=== PATIENT | male | born 1965 | race Caucasian/White ===

== ENCOUNTER 2020-03-04 11:55 | Inpatient (IN) | payer OTHER ==
[2020-03-04] MEDS ORDERED: ASPIRIN 81 MG PO STA (12:14)
--- NOTE | 2020-03-04 12:16 | ED ---
General Adult HPI - General Chief complaint: Chest Pain Stated complaint: chest & arm pain Time Seen by Provider: 03/04/20 12:08 Source: patient Mode of arrival: wheelchair Limitations: no limitations - History of Present Illness Initial comments: Dictation was produced using [employer] dictation software. please excuse any grammatical, word or spelling errors. This patient was cared for during a federal and state declared state of emergency secondary to Covid 19 Chief Complaint: 54-year-old male past medical history dyslipidemia hypertension presents with chest pain History of Present Illness: Patient is a 54-year-old male who has past medical history of hypertension, dyslipidemia tobacco abuse presents today with chest pain. Patient states he's been expressing chest pain since this morning. He was at approximately 9 PM. He went to bed last night in his usual state of health. Morning he woke up with dull achy pain to his left anterior chest. He states it radiates to his back and down his left upper extremity. Patient denies any exacerbating or mitigating factors. He denies that the pain is pressure-like sensation. No associated diaphoresis or nausea. He reports that he does use tobacco on a regular basis. He reports he also has strong family history of cardiac disease. The ROS documented in this emergency department record has been reviewed and confirmed by me. Those systems with pertinent positive or negative responses have been documented in the HPI. All other systems are other negative and/or noncontributory. PHYSICAL EXAM: General Impression: Alert and oriented x3, not in acute distress HEENT: Normocephalic atraumatic, extra-ocular movements intact, pupils equal and reactive to light bilaterally, mucous membranes moist. Cardiovascular: Heart regular rate and rhythm Chest: Able to complete full sentences, no retractions, no tachypnea Abdomen: abdomen soft, non-tender, non-distended, no organomegaly Musculoskeletal: Pulses present and equal in all extremities, no peripheral edema Motor: no focal deficits noted Neurological: CN II-XII grossly intact, no focal motor or sensory deficits noted Skin: Intact with no visualized rashes Psych: Normal affect and mood ED course: 54-year-old male presents today with atypical chest pain with typical features. He does have multiple risk factors for acute coronary syndrome. He is well-appearing at bedside. As upon arrival are within acceptable limits. Essentially signs of dyspnea. He is not hypoxic. Laboratory evaluation obtained. Mild leukocytosis of 0.4. Rest of CBC is unremarkable. Coag panel is negative. Metabolic panel was obtained. Creatinine is 2.19 with a P1 at 26. Troponin is 0.039. Rest of labs unremarkable. Chest x-ray shows cardiomegaly without acute processes. A chin reevaluated at bedside. He is given aspirin. Patient states he continues to have some mild posterior left shoulder pain. Patient given nitro glycerin started on heparin. There are no old labs for cath reports to review. At this point is concern that patient's clinical presentation concerning for acute coronary syndrome. EKG interpretation: Ventricular rate 80, normal sinus rhythm, ID interval 182, QRS 92, QTc 445. No ID prolongation, no QTC prolongation, no ST or T-wave changes noted. No old EKG for comparison. There is a Q wave and T inversion in lead 3. Overall this EKG is nonspecific. Repeat EKG at 1421 was obtained showing no dynamic changes. Ventricular rate 76, normal sinus rhythm,. 180, QRS 90, QTC 472. At 2:33 PM case discussed with Dr. Simmons, on-call cardiology who is aware patient. He has no recommendations at this time except for patient be admitted for monitoring. he'll be admitted to [facility] hospitalist group. - Related Data Home Medications Medication Instructions Recorded Confirmed Atorvastatin [Lipitor] 10 mg PO HS 03/04/20 03/04/20 Citalopram Hydrobromide [CeleXA] 40 mg PO DAILY 03/04/20 03/04/20 Lisinopril-Hctz 20-12.5 mg 1 tab PO DAILY 03/04/20 03/04/20 [Zestoretic 20-12.5] buPROPion [Wellbutrin] 75 mg PO DAILY 03/04/20 03/04/20 Allergies Allergy/AdvReac Type Severity Reaction Status Date / Time No Known Allergies Allergy Verified 03/04/20 14:14 Review of Systems ROS Statement: Those systems with pertinent positive or pertinent negative responses have been documented in the HPI. ROS Other: All systems not noted in ROS Statement are negative. Past Medical History Past Medical History: Hyperlipidemia, Hypertension History of Any Multi-Drug Resistant Organisms: None Reported Additional Past Surgical History / Comment(s): cyst removal neck. Smoking Status: Current every day smoker Past Alcohol Use History: Occasional Past Drug Use History: None Reported General Exam Limitations: no limitations Course Vital Signs 03/04/20 03/04/20 03/04/20 12:00 12:50 13:59 Temperature 97.9 F Pulse Rate 85 82 79 Respiratory 18 18 18 Rate Blood Pressure 156/96 166/104 174/117 O2 Sat by Pulse 98 97 98 Oximetry Medical Decision Making - Lab Data Result diagrams: 03/04/20 12:32 03/04/20 12:32 Lab Results 03/04/20 03/04/20 03/04/20 Range/Units 12:32 12:32 12:32 WBC 12.4 H (3.8-10.6) k/uL RBC 4.41 (4.30-5.90) m/uL Hgb 13.3 (13.0-17.5) gm/dL Hct 38.8 L (39.0-53.0) % MCV 88.1 (80.0-100.0) fL MCH 30.1 (25.0-35.0) pg MCHC 34.1 (31.0-37.0) g/dL RDW 13.5 (11.5-15.5) % Plt Count 226 (150-450) k/uL MPV 6.9 Neutrophils % 78 % Lymphocytes % 11 % Monocytes % 5 % Eosinophils % 4 % Basophils % 1 % Neutrophils # 9.7 H (1.3-7.7) k/uL Lymphocytes # 1.4 (1.0-4.8) k/uL Monocytes # 0.6 (0-1.0) k/uL Eosinophils # 0.5 (0-0.7) k/uL Basophils # 0.1 (0-0.2) k/uL PT 9.6 (9.0-12.0) sec INR 0.9 (<1.2) APTT 27.8 (22.0-30.0) sec Sodium 138 (137-145) mmol/L Potassium 4.1 (3.5-5.1) mmol/L Chloride 103 (98-107) mmol/L Carbon Dioxide 25 (22-30) mmol/L Anion Gap 10 mmol/L BUN 26 H (9-20) mg/dL Creatinine 2.19 H (0.66-1.25) mg/dL Est GFR (CKD-EPI)AfAm 38 (>60 ml/min/1.73 sqM) Est GFR (CKD-EPI)NonAf 33 (>60 ml/min/1.73 sqM) Glucose 143 H (74-99) mg/dL Calcium 9.7 (8.4-10.2) mg/dL Magnesium 2.0 (1.6-2.3) mg/dL Total Bilirubin 0.4 (0.2-1.3) mg/dL AST 29 (17-59) U/L ALT 33 (4-49) U/L Alkaline Phosphatase 100 (38-126) U/L Troponin I (0.000-0.034) ng/mL Total Protein 7.7 (6.3-8.2) g/dL Albumin 4.4 (3.5-5.0) g/dL 03/04/20 Range/Units 12:32 WBC (3.8-10.6) k/uL RBC (4.30-5.90) m/uL Hgb (13.0-17.5) gm/dL Hct (39.0-53.0) % MCV (80.0-100.0) fL MCH (25.0-35.0) pg MCHC (31.0-37.0) g/dL RDW (11.5-15.5) % Plt Count (150-450) k/uL MPV Neutrophils % % Lymphocytes % % Monocytes % % Eosinophils % % Basophils % % Neutrophils # (1.3-7.7) k/uL Lymphocytes # (1.0-4.8) k/uL Monocytes # (0-1.0) k/uL Eosinophils # (0-0.7) k/uL Basophils # (0-0.2) k/uL PT (9.0-12.0) sec INR (<1.2) APTT (22.0-30.0) sec Sodium (137-145) mmol/L Potassium (3.5-5.1) mmol/L Chloride (98-107) mmol/L Carbon Dioxide (22-30) mmol/L Anion Gap mmol/L BUN (9-20) mg/dL Creatinine (0.66-1.25) mg/dL Est GFR (CKD-EPI)AfAm (>60 ml/min/1.73 sqM) Est GFR (CKD-EPI)NonAf (>60 ml/min/1.73 sqM) Glucose (74-99) mg/dL Calcium (8.4-10.2) mg/dL Magnesium (1.6-2.3) mg/dL Total Bilirubin (0.2-1.3) mg/dL AST (17-59) U/L ALT (4-49) U/L Alkaline Phosphatase (38-126) U/L Troponin I 0.039 H* (0.000-0.034) ng/mL Total Protein (6.3-8.2) g/dL Albumin (3.5-5.0) g/dL Disposition Clinical Impression: Chest pain Disposition: ADMITTED IP TO THIS HOSP Condition: Fair Referrals: [facility],Clinic [Primary Care Provider] - 1-2 days Decision Time: 14:34
--- NOTE | 2020-03-04 12:41 | XR ---
EXAMINATION TYPE: XR chest 2V DATE OF EXAM: 03/04/2020 COMPARISON: NONE HISTORY: Chest pain and nausea. TECHNIQUE: Frontal and lateral views of the chest are obtained. FINDINGS: Overlying EKG leads are present. Mild reticular and reticulonodular opacities bilaterally. There is no suspicious peripheral focal air space opacity, pleural effusion, or pneumothorax seen. The cardiac silhouette size is mildly enlarged. The osseous structures are intact. IMPRESSION: Mild cardiomegaly without acute pulmonary process.
[2020-03-04 13:06] LABS: Basophils # (A) 0.1 k/uL (0-0.2); Basophils % (A) 1 %; Eosinophils # (A) 0.5 k/uL (0-0.7); Eosinophils % (A) 4 %; HCT 38.8 % (39.0-53.0); HGB 13.3 gm/dL (13.0-17.5); Lymphocytes # (A) 1.4 k/uL (1.0-4.8); Lymphocytes % (A) 11 %; MCH 30.1 pg (25.0-35.0); MCHC 34.1 g/dL (31.0-37.0); MCV 88.1 fL (80.0-100.0); Mean Platelet Volume 6.9; Monocytes # (A) 0.6 k/uL (0-1.0); Monocytes % (A) 5 %; Neutrophils # (A) 9.7 k/uL (1.3-7.7); Neutrophils % (A) 78 %; Platelet Count 226 k/uL (150-450); RBC 4.41 m/uL (4.30-5.90); RDW 13.5 % (11.5-15.5); WBC 12.4 k/uL (3.8-10.6)
[2020-03-04 13:18] LABS: INR 0.9 (<1.2)
[2020-03-04 13:19] LABS: Partial Thromboplastin Time 27.8 sec (22.0-30.0); Prothrombin Time 9.6 sec (9.0-12.0)
[2020-03-04 13:20] LABS: Potassium 4.1 mmol/L (3.5-5.1)
[2020-03-04 13:21] LABS: Albumin 4.4 g/dL (3.5-5.0); Calcium 9.7 mg/dL (8.4-10.2); Total Bilirubin 0.4 mg/dL (0.2-1.3); Total Protein 7.7 g/dL (6.3-8.2)
[2020-03-04] MEDS ORDERED: HEPARIN SODIUM,PORCINE 5,000 UNIT/ML 1 ML VIAL IV ONE (14:17)
[2020-03-04] MEDS ORDERED: NITROGLYCERIN SL TABS 0.4 MG TAB SUBLINGUAL STA (14:20)
[2020-03-04] MEDS ORDERED: NITROGLYCERIN SL TABS 0.4 MG TAB SUBLINGUAL PRN (14:34)
[2020-03-04] MEDS: HEPARIN SOD,PORK IN 0.45% NACL 25,000 UNIT in 0.45% NACL 1 250ML.BAG IV SCH (14:40)
[2020-03-04] MEDS ORDERED: ALPRAZolam 0.25 MG TAB PO PRN (15:52)
[2020-03-04] MEDS ORDERED: TEMAZEPAM 15 MG CAP PO PRN (15:52)
[2020-03-04] MEDS ORDERED: ACETAMINOPHEN TAB 500 MG TAB PO PRN (18:50)
[2020-03-04] MEDS: SODIUM CHLORIDE 0.9% 1,000 ML IV SCH (20:05)
--- NOTE | 2020-03-04 20:41 | HP ---
HISTORY AND PHYSICAL DATE OF SERVICE: 03/04/2020 CHIEF COMPLAINT: Chest pain. HISTORY OF PRESENT ILLNESS: This 54-year-old gentleman with a past medical history of multiple medical problems, including hypertension, hyperlipidemia, history of nicotine dependence, being followed by Dr. Juarez in [facility] in the outpatient setting, was complaining of chest pain. The pain was felt in the anterior part of the chest as well as the left side of the chest radiating to the shoulder, back of the shoulder and down the left arm since this morning. The pain was dull aching in character and was radiating to the back, as mentioned earlier. There was no associated diaphoresis or nausea. There was no associated syncope or palpitations. The patient came to [facility] and was admitted for further evaluation and treatment. The patient also has apparently a strong family history of coronary artery disease. There is no history of fever, rigors or chills at this time. On admission, creatinine was found to be 2.1 and troponin was found to be 0.039 and 1.430, suggestive of acute vto-ZG-tkuiopz-elevation myocardial infarction. An EKG showed nonspecific ST-T changes in the lateral leads. There is no history of any fever, rigor or chills. No history of any contact with COVID-19. PAST MEDICAL HISTORY: Hypertension, hyperlipidemia, cyst removal from the back. History of nicotine dependence. MEDICATIONS: Medications prior to admission include Wellbutrin 75 mg p.o. daily, Zestril 1 p.o. daily, Celexa 40 mg daily, Lipitor 10 mg at bedtime. ALLERGIES: NONE. FAMILY HISTORY: History of coronary artery disease in the family. SOCIAL HISTORY: Occasional alcohol intake. History of smoking. REVIEW OF SYSTEMS: ENT: No diminished hearing. No diminished vision. CARDIOVASCULAR SYSTEM: As mentioned earlier. RESPIRATORY SYSTEM: As mentioned earlier. GI: As mentioned earlier. : No dysuria or retention. NERVOUS SYSTEM: No numbness, weakness. ALLERGY/IMMUNOLOGY: No asthma, hayfever. MUSCULOSKELETAL: As mentioned earlier. HEMATOLOGY/ONCOLOGY: No history of anemia. ENDOCRINE: No history of diabetes, hypothyroidism. CONSTITUTIONAL: As mentioned earlier. DERMATOLOGY: Negative. RHEUMATOLOGY: Negative. PSYCHIATRY: As mentioned earlier. PHYSICAL EXAMINATION: Patient alert and oriented x3. Pulse 65, blood pressure 148/93, respiration 18, temperature normal, pulse ox 94% on room air. HEENT: Conjunctivae normal. NECK: No jugular venous distention. CARDIOVASCULAR SYSTEM: S1, S2 muffled. RESPIRATORY SYSTEM: Breath sounds diminished at the bases. No rhonchi. No crackles. ABDOMEN: Soft, obese, non-tender. No mass palpable. LEGS: No edema. No swelling. NERVOUS SYSTEM: Higher functions as mentioned earlier. Moves all 4 limbs. No focal motor or sensory deficit. LYMPHATICS: No lymph node palpable in neck, axillae or groin. SKIN: No ulcer, rash, bleeding. JOINTS: No active deforming arthropathy. LABS: WBC 12.4 and creatinine is 2.19. Troponin is noted. ASSESSMENT: 1. Chest pain; possible acute bpt-CJ-wbeejgk-elevation myocardial infarction. 2. Troponin 0.039 and 1.430. 3. Renal failure; possibly acute renal failure. 4. Increased white count. 5. Hypertension. 6. Hyperlipidemia. 7. Family history of coronary artery disease. 8. History of nicotine dependence. 9. Obesity with body mass index of 32.3. RECOMMENDATIONS AND DISCUSSION: In this 54-year-old gentleman who presented with multiple complex medical issues, we will monitor the patient closely, continue the current medications, continue symptomatic treatment. Acute coronary syndrome Protonix. IV heparin. Cardiology consultation. Possible cardiac cath. I would also get a nephrology evaluation regarding the renal failure. Cautious IV fluids. Prognosis guarded because of multiple complex medical issues. Further recommendations to follow. A copy of this dictation is being forwarded to Dr. Juarez, who is the primary physician. BELL / NATHANIEL: [id number] / MTDD
[2020-03-04] MEDS ORDERED: ATORVASTATIN 10 MG TAB PO SCH (21:00)
[2020-03-04] MEDS: HYDROcodone/APAP 5-325MG 1 EACH TAB PO PRN (22:10)
[2020-03-05] MEDS: METOPROLOL TARTRATE 25 MG TAB PO SCH ×3 (00:34→20:33)
[2020-03-05 02:23] LABS: Appearance,Urine Clear (Clear); Bacteria,Urine Rare /hpf; Bilirubin,Urine Negative (Negative); Blood,Urine Large (Negative); Color,Urine Light Yellow; Glucose,Urine (UA) Negative (Negative); Ketones,Urine Negative (Negative); Leukocyte Esterase,Urine Trace (Negative); Mucus,Urine Occasional /hpf; Nitrite,Urine Negative (Negative); PH, Urine 5.5 (5.0-8.0); Protein,Urine Trace (Negative); RBC,Urine 92 /hpf (0-5); Specific Gravity,Urine 1.016 (1.001-1.035); Squamous Epithelial Cell,Urine <1 /hpf (0-4); Urobilinogen,Urine <2.0 mg/dL (<2.0); WBC,Urine 8 /hpf (0-5)
[2020-03-05 02:52] LABS: Basophils # (A) 0.1 k/uL (0-0.2); Basophils % (A) 1 %; Eosinophils # (A) 0.5 k/uL (0-0.7); Eosinophils % (A) 4 %; HCT 37.2 % (39.0-53.0); HGB 12.8 gm/dL (13.0-17.5); Lymphocytes # (A) 2.3 k/uL (1.0-4.8); Lymphocytes % (A) 17 %; MCH 30.5 pg (25.0-35.0); MCHC 34.5 g/dL (31.0-37.0); MCV 88.3 fL (80.0-100.0); Mean Platelet Volume 6.6; Monocytes # (A) 0.7 k/uL (0-1.0); Monocytes % (A) 5 %; Neutrophils # (A) 9.5 k/uL (1.3-7.7); Neutrophils % (A) 72 %; Platelet Count 239 k/uL (150-450); RBC 4.21 m/uL (4.30-5.90); RDW 13.3 % (11.5-15.5); WBC 13.2 k/uL (3.8-10.6)
[2020-03-05 03:09] LABS: Calcium 9.3 mg/dL (8.4-10.2); Potassium 4.3 mmol/L (3.5-5.1)
[2020-03-05] MEDS: PANTOPRAZOLE 40 MG TABLET PO SCH (06:44)
[2020-03-05] MEDS: buPROPion 75 MG TAB PO SCH (08:07)
[2020-03-05] MEDS: CITALOPRAM HYDROBROMIDE 20 MG TAB PO SCH (08:07)
[2020-03-05] MEDS: SODIUM CHLORIDE 0.9% 1,000 ML IV SCH ×2 (08:07→20:33)
[2020-03-05] MEDS: ASPIRIN 325 MG TAB PO SCH (08:07)
[2020-03-05] MEDS: HYDROcodone/APAP 5-325MG 1 EACH TAB PO PRN ×2 (08:13→16:35)
--- NOTE | 2020-03-05 10:13 | P.CRDCN ---
History of Present Illness Consult date: 03/05/20 Requesting physician: Karla Collazo Reason for Consult (text): NSTEMI Chief complaint: chest pressure History of present illness: This is a pleasant 54-year-old gentleman with no past medical history of coronary artery disease. He has a history of hypertension, hyperlipidemia, he is a current every day smoker of about one pack per day, family history of CAD in his father and mother. His father was about his age when he began having cardiac issues. He follows regularly with the [facility]. He denies history of kidney disease. Presented to the emergency department after developing some chest p ressure. Apparently evening March 03 he developed some nausea and vomiting after dinner after which time he went to bed. When he woke in the morning he had some chest pressure. The pressure persisted so he decided to come to the emergency department. EKG on admission showed sinus rhythm with mild ST depression noted in the inferolateral leads. Chest x-ray on admission showed mild cardiomegaly without acute pulmonary process. Laboratory values on admission showed a white blood cell count 12,400, BUN 26, creatinine 2.19, and troponins have been positive at 0.039, 1.43 and 4.07. Repeat labs this morning show white blood cell count 13,200, BUN 31 and creatinine 2.36. Triglycerides are elevated and glucose has been elevated. He has never been diagnosed with diabetes. He has been initiated on a heparin drip and started on Lopressor 0.5 mg by mouth twice a day and his Zestoretic has been discontinued. Overall he is feeling better. He did have one brief episode of chest pressure through the night relieved with one sublingual nitro. Past Medical History Past Medical History: Hyperlipidemia, Hypertension History of Any Multi-Drug Resistant Organisms: None Reported Additional Past Surgical History / Comment(s): cyst removal neck. Past Psychological History: No Psychological Hx Reported Smoking Status: Current every day smoker Past Alcohol Use History: Occasional Past Drug Use History: None Reported Medications and Allergies Home Medications Medication Instructions Recorded Confirmed Type Atorvastatin [Lipitor] 10 mg PO HS 03/04/20 03/04/20 History Citalopram Hydrobromide [CeleXA] 40 mg PO DAILY 03/04/20 03/04/20 History Lisinopril-Hctz 20-12.5 mg 1 tab PO DAILY 03/04/20 03/04/20 History [Zestoretic 20-12.5] buPROPion [Wellbutrin] 75 mg PO DAILY 03/04/20 03/04/20 History Allergies Allergy/AdvReac Type Severity Reaction Status Date / Time No Known Allergies Allergy Verified 03/04/20 14:14 Physical Exam Vitals: Vital Signs Temp Pulse Pulse Resp BP BP Pulse Ox 03/05/20 07:53 98.5 F 78 20 132/83 97 03/05/20 04:00 98.6 F 69 17 120/76 03/05/20 00:00 98.9 F 86 18 156/84 86 L 03/04/20 20:00 97.6 F 74 17 156/79 95 03/04/20 16:50 97.6 F 74 17 156/79 95 03/04/20 16:49 79 18 148/93 96 03/04/20 15:58 65 18 148/93 95 03/04/20 14:51 65 18 127/83 98 03/04/20 14:30 60 18 105/72 98 03/04/20 13:59 79 18 174/117 98 03/04/20 12:50 82 18 166/104 97 03/04/20 12:00 97.9 F 85 18 156/96 98 Intake and Output 03/04/20 03/05/20 03/05/20 22:59 06:59 14:59 Intake Total 129.394 600 Output Total 300 Balance -170.606 600 Intake: Intake, IV Titration 129.394 600 Amount Heparin Sod,Pork in 0.45% 129.394 NaCl 25,000 unit In 0.45 % NaCl 1 250ml.bag @ 11 UNITS/KG/HR 9.979 mls/hr IV .Q24H VIJAYA Rx#: [id number] Sodium Chloride 0.9% 1, 600 000 ml @ 75 mls/hr IV . [id number] VIJAYA Rx#:[id number] Output: Urine 300 Other: # Voids 2 3 Weight 90.718 kg 91.5 kg PHYSICAL EXAMINATION: This is a 54-year-old male in no apparent distress at the time of my examination. VITAL SIGNS: Blood pressure 132/83, heart rate 78, respirations 20, temp 98.5F. Patient is 97 % on room air. HEENT: Head is atraumatic, normocephalic. Pupils are equal, round. Sclerae anicteric. Conjunctivae are clear. Mucous membranes of the mouth are moist. Neck is supple. There is no elevated jugular venous pressure. No carotid bruit is heard. CHEST EXAMINATION: Clear to auscultation bilaterally. No wheezes rales or rhonchi. Respirations even and nonlabored. HEART EXAMINATION: Heart regular, positive S1 and S2. No S3. No S4. No clicks, rubs or murmurs. ABDOMEN: Soft, nontender. Bowel sounds are heard. No organomegaly noted. EXTREMITIES: 2+ peripheral pulses with no evidence of peripheral edema and no calf tenderness noted. NEUROLOGIC EXAMINATION: Patient is awake, alert and oriented x3. Results 03/05/20 02:40 03/05/20 02:40 Cardiac Enzymes 03/04/20 03/04/20 03/04/20 Range/Units 12:32 12: 15:55 AST 29 (17-59) U/L Troponin I 0.039 H* 1.430 H* (0.000-0.034) ng/mL 03/04/20 Range/Units 18:24 AST (17-59) U/L Troponin I 4.070 H* (0.000-0.034) ng/mL Coagulation 03/04/20 03/05/20 03/05/20 Range/Units 12:32 02:40 08:37 PT 9.6 (9.0-12.0) sec APTT 27.8 28.6 31.9 H (22.0-30.0) sec Lipids 03/05/20 Range/Units 02:40 Triglycerides 357 H (<150) mg/dL Cholesterol 184 (<200) mg/dL HDL Cholesterol 32 L (40-60) mg/dL CBC 03/04/20 03/05/20 Range/Units 12:32 02:40 WBC 12.4 H 13.2 H (3.8-10.6) k/uL RBC 4.41 4.21 L (4.30-5.90) m/uL Hgb 13.3 12.8 L (13.0-17.5) gm/dL Hct 38.8 L 37.2 L (39.0-53.0) % Plt Count 226 239 (150-450) k/uL Comprehensive Metabolic Panel 03/04/20 03/05/20 Range/Units 12:32 02:40 Sodium 138 137 (137-145) mmol/L Potassium 4.1 4.3 (3.5-5.1) mmol/L Chloride 103 104 (98-107) mmol/L Carbon Dioxide 25 27 (22-30) mmol/L BUN 26 H 31 H (9-20) mg/dL Creatinine 2.19 H 2.36 H (0.66-1.25) mg/dL Glucose 143 H 116 H (74-99) mg/dL Calcium 9.7 9.3 (8.4-10.2) mg/dL AST 29 (17-59) U/L ALT 33 (4-49) U/L Alkaline Phosphatase 100 (38-126) U/L Total Protein 7.7 (6.3-8.2) g/dL Albumin 4.4 (3.5-5.0) g/dL Current Medications Generic Name Dose Route Start Last Admin Trade Name Freq PRN Reason Stop Dose Admin Acetaminophen 500 mg 03/04/20 18:50 Acetaminophen Tab 500 Mg Tab PO Q6HR PRN Fever and/ or Pain Hydrocodone Bitart/Acetaminophen 1 each 03/04/20 15:52 03/05/20 08:13 Hydrocodone/Apap 5-325mg 1 Each Tab PO 1 each Q6HR PRN Administration Pain Alprazolam 0.25 mg 03/04/20 15:52 Alprazolam 0.25 Mg Tab PO TID PRN Anxiety Aspirin 325 mg 03/05/20 09:00 03/05/20 08:07 Aspirin 325 Mg Tab PO 325 mg DAILY VIJAYA Administration Atorvastatin Calcium 10 mg 03/04/20 21:00 03/04/20 20:05 Atorvastatin 10 Mg Tab PO 10 mg HS VIJAYA Administration Bupropion HCl 75 mg 03/05/20 09:00 03/05/20 08:07 Bupropion 75 Mg Tab PO 75 mg DAILY VIJAYA Administration Citalopram Hydrobromide 40 mg 03/05/20 09:00 03/05/20 08:07 Citalopram Hydrobromide 20 Mg Tab PO 40 mg DAILY VIJAYA Administration Heparin Sodium (Porcine) 0 unit 03/04/20 14:17 Heparin Sodium,Porcine 5,000 Unit/Ml 1 Ml Vial IV PER PROTOCOL PRN Low PTT Protocol Heparin Sodium/Sodium Chloride 250 mls @ 9.979 mls/hr 03/04/20 14:30 03/05/20 03:38 25,000 unit/ Sodium Chloride IV 14 units/kg/hr .Q24H VIJAYA 12.701 mls/hr Titration Protocol 11 UNITS/KG/HR Sodium Chloride 1,000 mls @ 75 mls/hr 03/04/20 19:00 03/05/20 08:07 Saline 0.9% IV 75 mls/hr .[id number] VIJAYA Administration Metoprolol Tartrate 25 mg 03/05/20 00:15 03/05/20 08:08 Metoprolol Tartrate 25 Mg Tab PO 25 mg BID VIJAYA Administration Nitroglycerin 0.4 mg 03/04/20 14:34 03/04/20 20:02 Nitroglycerin Sl Tabs 0.4 Mg Tab SUBLINGUAL 0.4 mg Q5M PRN Administration Chest Pain Pantoprazole Sodium 40 mg 03/05/20 07:30 03/05/20 06:44 Pantoprazole 40 Mg Tablet PO 40 mg [id number] VIJAYA Administration Temazepam 15 mg 03/04/20 15:52 Temazepam 15 Mg Cap PO HS PRN Insomnia Intake and Output 03/04/20 03/05/20 03/05/20 22:59 06:59 14:59 Intake Total 129.394 600 Output Total 300 Balance -170.606 600 Intake: Intake, IV Titration 129.394 600 Amount Heparin Sod,Pork in 0.45% 129.394 NaCl 25,000 unit In 0.45 % NaCl 1 250ml.bag @ 11 UNITS/KG/HR 9.979 mls/hr IV .Q24H VIJAYA Rx#: [id number] Sodium Chloride 0.9% 1, 600 000 ml @ 75 mls/hr IV . [id number] VIJAYA Rx#:[id number] Output: Urine 300 Other: # Voids 2 3 Weight 90.718 kg 91.5 kg 03/05/20 02:40 03/05/20 02:40 EKG Interpretations (text) Sinus rhythm with ST-T wave abnormalities Assessment and Plan Assessment: #1 non-ST elevation PR #2 acute renal failure #3 probable UTI #4 hypertension #5 hyperlipidemia #6 elevated blood glucose #7 nicotine dependence Plan: From cardiology's perspective we will obtain 2-D echo with Doppler to assess cardiac structure and function. We will add an oral nitrate and plavix. Increase atorvastatin. We will check a hemoglobin A1c. We will await nephrology's input. Patient will likely require cardiac catheterization but this will depend on renal status. We'll continue to follow the patient closely and provide further recommendations accordingly. The above dictated assessment and findings were discussed with signing darline sician. The impression and plan of care have been directed as dictated. Jennifer Bynum, Nurse Practitioner, acting as scribe for signing physician.
[2020-03-05] MEDS: ISOSORBIDE MONONITRATE ER 30 MG TAB.ER.24H PO SCH (10:24)
[2020-03-05] MEDS: HEPARIN SODIUM,PORCINE 5,000 UNIT/ML 1 ML VIAL IV PRN ×2 (10:25→17:48)
--- NOTE | 2020-03-05 11:32 | P.NPCON ---
History of Present Illness - Reason for Consult acute renal failure - History of Present Illness Reason for consultation: Acute kidney injury versus chronic kidney disease History of present illness: Patient is a 54-year-old male seen in renal consultation for acute kidney injury. Unknown as to what his baseline renal function is. Creatinine was 2.18 on admission and is 2.36 today. Patient does not follow with a operational intelligence officer outpatient. No history of diabetes. He does have long-standing history of high blood pressure and was maintained on Zestoretic outpatient. Patient presented to the hospital due to chest pain that started in the middle of his chest and radiated to the left side of his chest as well as his arm. He describes the pain like pressure. Denies any nausea or vomiting. No significant diarrhea. No shortness of breath. Oral intake has been fair. He is currently maintained on normal saline as well as heparin drip. Her pressure is stable. Zestoretic is held. He denies regular use of nonsteroidals. Patient states his mother has chronic kidney disease but is unsure of the etiology. Good urine output. No hematuria or dysuria. No fever or chills. No cough. Vital signs are stable. General: The patient appeared well nourished and normally developed. HEENT: Head exam is unremarkable. Neck is without jugular venous distension. LUNGS: Breath sounds decreased. HEART: Rate and Rhythm are regular. ABDOMEN: Soft, nontender. EXTREMITITES: No edema. Past Medical History Past Medical History: Hyperlipidemia, Hypertension History of Any Multi-Drug Resistant Organisms: None Reported Additional Past Surgical History / Comment(s): cyst removal neck. Past Psychological History: No Psychological Hx Reported Smoking Status: Current every day smoker Past Alcohol Use History: Occasional Past Drug Use History: None Reported Medications and Allergies Home Medications Medication Instructions Recorded Confirmed Type Atorvastatin [Lipitor] 10 mg PO HS 03/04/20 03/04/20 History Citalopram Hydrobromide [CeleXA] 40 mg PO DAILY 03/04/20 03/04/20 History Lisinopril-Hctz 20-12.5 mg 1 tab PO DAILY 03/04/20 03/04/20 History [Zestoretic 20-12.5] buPROPion [Wellbutrin] 75 mg PO DAILY 03/04/20 03/04/20 History Allergies Allergy/AdvReac Type Severity Reaction Status Date / Time No Known Allergies Allergy Verified 03/04/20 14:14 Physical Exam Vitals: Vital Signs Temp Pulse Pulse Resp BP BP Pulse Ox 03/05/20 07:53 98.5 F 78 20 132/83 97 03/05/20 04:00 98.6 F 69 17 120/76 03/05/20 00:00 98.9 F 86 18 156/84 86 L 03/04/20 20:00 97.6 F 74 17 156/79 95 03/04/20 16:50 97.6 F 74 17 156/79 95 03/04/20 16:49 79 18 148/93 96 03/04/20 15:58 65 18 148/93 95 03/04/20 14:51 65 18 127/83 98 03/04/20 14:30 60 18 105/72 98 03/04/20 13:59 79 18 174/117 98 03/04/20 12:50 82 18 166/104 97 03/04/20 12:00 97.9 F 85 18 156/96 98 Intake and Output 03/04/20 03/05/20 03/05/20 22:59 06:59 14:59 Intake Total 129.394 686.367 Output Total 300 Balance -170.606 686.367 Intake: Intake, IV Titration 129.394 686.367 Amount Heparin Sod,Pork in 0.45% 129.394 86.367 NaCl 25,000 unit In 0.45 % NaCl 1 250ml.bag @ 11 UNITS/KG/HR 9.979 mls/hr IV .Q24H VIJAYA Rx#: [id number] Sodium Chloride 0.9% 1, 600 000 ml @ 75 mls/hr IV . [id number] VIJAYA Rx#:[id number] Output: Urine 300 Other: # Voids 2 3 Weight 90.718 kg 91.5 kg Results - Lab Results Most recent lab results Calcium 9.3 mg/dL (8.4-10.2) 03/05/20 02:40 Magnesium 2.0 mg/dL (1.6-2.3) 03/04/20 12:32 03/05/20 02:40 03/05/20 02:40 Assessment and Plan Plan: Assessment: 1. Acute kidney injury versus chronic kidney disease. Creatinine 2.19 on admission yesterday and is 2.36 today. Unknown baseline renal function. 2. Non-ST elevated myocardial infarction maintained on heparin drip. Cardiology consulted. 3. Benign hypertension. Stable. 4. Proteinuria and hematuria. Also probable UTI on UA. Plan: Repeat urinalysis. Quantify proteinuria. Check renal ultrasound. Check urine culture. Maintain normal saline. Follow-up echocardiogram and hemoglobin A1c. Hold Zestoretic. Continue to monitor renal function and urine output. Thank you for the consultation. I will continue to follow patient with you renea quiros his hospital stay.
[2020-03-05] MEDS: CLOPIDOGREL 75 MG TAB PO SCH (11:47)
[2020-03-05] MEDS: HEPARIN SOD,PORK IN 0.45% NACL 25,000 UNIT in 0.45% NACL 1 250ML.BAG IV SCH ×2 (11:47→16:36)
--- NOTE | 2020-03-05 13:41 | US ---
EXAMINATION TYPE: US kidneys/renal and bladder DATE OF EXAM: 03/05/2020 COMPARISON: NONE CLINICAL HISTORY: 54 year-old male acute kidney injury TECHNIQUE: Multiple sonographic images of the kidneys and bladder are obtained. FINDINGS: EXAM MEASUREMENTS: Right Kidney: 10.2 x 4.5 x 5.1 cm Left Kidney: 13.0 x 5.9 x 5.4 cm, asymmetrically larger, possible duplex renal collecting system. No hydronephrosis on either side. Bladder: Bladder distention limits its evaluation.Bilateral Jets seen: no Prostate appears prominent impressing into the bladder base. Incidental echogenic liver compatible with fatty infiltration. IMPRESSION: 1. No hydronephrosis. The left kidney is asymmetrically larger, possible duplex left renal collecting system. 2. Underdistention of the bladder limits its evaluation. Prostate gland is prominent impressing into the bladder base. Correlate with patient's symptoms and PSA values. 3. Incidental hepatic steatosis.
[2020-03-05 14:59] LABS: Appearance,Urine Clear (Clear); Bilirubin,Urine Negative (Negative); Blood,Urine Small (Negative); Color,Urine Yellow; Glucose,Urine (UA) Negative (Negative); Hyaline Casts,Urine 1 /lpf (0-2); Ketones,Urine Negative (Negative); Leukocyte Esterase,Urine Negative (Negative); Mucus,Urine Rare /hpf; Nitrite,Urine Negative (Negative); PH, Urine 5.5 (5.0-8.0); Protein,Urine Trace (Negative); RBC,Urine 4 /hpf (0-5); Specific Gravity,Urine 1.019 (1.001-1.035); Urobilinogen,Urine <2.0 mg/dL (<2.0); WBC,Urine 2 /hpf (0-5)
[2020-03-05 15:14] LABS: Creatinine,Urine Random 157.7 mg/dL; Protein/Creatinine Ratio,Urine 0.082
--- NOTE | 2020-03-05 15:33 | ECHOF ---
Referral Reason:NSTEMI MEASUREMENTS -------- HEIGHT: 167.6 cm WEIGHT: 91.2 kg BP: 132/83 RVIDd: 3.5 cm (< 3.3) IVSd: 1.7 cm (0.6 - 1.1) LVIDd: 4.2 cm (3.9 - 5.3) LVPWd: 1.5 cm (0.6 - 1.1) IVSs: 2.4 cm LVIDs: 3.1 cm LVPWs: 2.2 cm LAESV Index (A-L): 27.21 ml/m Ao Diam: 4.3 cm (2.0 - 3.7) AV Cusp: 2.4 cm (1.5 - 2.6) MV E Grzegorz: 1.09 m/s MV DecT: 262 ms MV A Grzegorz: 0.95 m/s MV E/A Ratio: 1.15 AV maxP.24 mmHg AV meanP.40 mmHg AR PHT: 604 ms RAP: 5.00 mmHg RVSP: 36.03 mmHg FINDINGS -------- This was a technically difficult study with suboptimal apical views. The left ventricular size is normal. Left ventricular wall thickness is normal. Overall left vent ricular systolic function is mild-moderately impaired with, an EF between 40 - 45 %. Mid lateral LV wall motion is hypokinetic. Apical lateral LV wall motion is hypokinetic. Apical inferior LV w all motion is hypokinetic. Inferior Hypokinesis The right ventricle is mildly enlarged. Normal LA size by volume 22+/-6 ml/m2. The right atrium was not well visualized. 5.0mg of Lumason was utilized for enhancement of images Interatrial and interventricular septum intact. Trace to mild aortic regurgitation. There is no evidence of aortic stenosis. AOV is possible Bicu spid. Mild mitral regurgitation is present. Mild tricuspid regurgitation present. There is mild pulmonary hypertension. The right ventricular systolic pressure, as measured by Doppler, is 36.03mmHg. There is no pulmonic regurgitation present. The aortic root is mildy dilated. IVC Not well visulized. There is no pericardial effusion. CONCLUSIONS -------- 1. The left ventricular size is normal. 2. Left ventricular wall thickness is normal. 3. Overall left ventricular systolic function is mild-moderately impaired with, an EF between 40 - 45 %. 4. Mid lateral LV wall motion is hypokinetic. 5. Apical lateral LV wall motion is hypokinetic. 6. Apical inferior LV wall motion is hypokinetic. 7. Inferior Hypokinesis 8. The right ventricle is mildly enlarged. 9. Trace to mild aortic regurgitation. 10. AOV is possible Bicuspid. 11. Mild mitral regurgitation is present. 12. Mild tricuspid regurgitation present. 13. There is mild pulmonary hypertension. 14. The right ventricular systolic pressure, as measured by Doppler, is 36.03mmHg. PRINCIPAL PROGRAMMER: Keren Baum RDCS
[2020-03-05] MEDS: ATORVASTATIN 40 MG TAB PO SCH (20:33)
--- NOTE | 2020-03-05 21:39 | P.PN ---
Subjective Progress Note Date: 03/05/20 Principal diagnosis: Acute non-ST elevated SC Patient is a 54-year-old male with known history of hypertension, hyperlipidemia and currently everyday smoker came to ER with complaints of chest pain. Patient states that he has been having retrosternal chest pain since yesterday morning. Patient woke up with dull aching pain and radiating to his left upper extremity and to his back. Denied any shortness of breath. Pain lasted about 2 hours. Pressure-like sensation and no diaphoresis or lightheadedness. Patient was found to have troponin level 0.039, 1.430 and EKG showed nonspecific ST-T wave changes. Denied any history of recent illnesses. On 03/05/2020 Patient is currently lying in the bed comfortably. Denies any chest pain today. Currently being continued heparin drip. Cardiology has seen the patient and started Plavix and nitrate. Renal function showed BUN 31 and creatinine 2.36. Nephrology is following. Cardiology is planning for catheterization once the renal function improves. Current medications reviewed. Objective - Vital Signs Vital signs: Vital Signs Temp 98.3 F 03/05/20 16:00 Pulse 65 03/05/20 16:00 Resp 18 03/05/20 16:00 BP 110/67 03/05/20 16:00 Pulse Ox 96 03/05/20 16:00 Intake & Output 03/05/20 03/05/20 03/06/20 06:59 18:59 06:59 Intake Total 445.166 9131.233 Output Total 300 Balance -446.397 7217.233 Weight 91.5 kg Intake: IV 120 Heparin Sod,Pork in 0.45% 120 NaCl 25,000 unit In 0.45 % NaCl 1 250ml.bag @ 11 UNITS/KG/HR 9.979 mls/hr IV .Q24H VIJAYA Rx#: [id number] Intake, IV Titration 609.091 1469.233 Amount Heparin Sod,Pork in 0.45% 129.394 200.233 NaCl 25,000 unit In 0.45 % NaCl 1 250ml.bag @ 11 UNITS/KG/HR 9.979 mls/hr IV .Q24H VIJAYA Rx#: [id number] Sodium Chloride 0.9% 1, 1200 000 ml @ 75 mls/hr IV . [id number] VIJAYA Rx#:[id number] Oral 720 Output: Urine 300 Other: # Voids 2 450 - Exam PHYSICAL EXAMINATION: Patient is lying in the bed comfortably, no acute distress, awake alert and oriented.. HEENT: Normocephalic. Neck is supple. Pupils reactive. Nostrils clear. Oral cavity is moist. Ears reveal no drainage. Neck reveals no JVD, carotid bruits, or thyromegaly. CHEST EXAMINATION: Trachea is central. Symmetrical expansion. Lung stevens clear to auscultation and percussion. CARDIAC: Normal S1, S2 with no gallops. No murmurs ABDOMEN: Soft. Bowel sounds normal. No organomegaly. No abdominal bruits. Extremities: reveal no edema. No clubbing or cyanosis Neurologically awake, alert, oriented x3 with well-coordinated movements. No focal deficits noted Skin: No rash or skin lesions. Psychiatric: Coperative. Nonsuicidal Musculoskeletal: No joint swelling or deformity. Normal range of motion. - Labs CBC & Chem 7: 03/05/20 02:40 03/05/20 02:40 Labs: Abnormal Lab Results - Last 24 Hours (Table) 03/05/20 03/05/20 03/05/20 Range/Units 02:07 02:40 02:40 WBC 13.2 H (3.8-10.6) k/uL RBC 4.21 L (4.30-5.90) m/uL Hgb 12.8 L (13.0-17.5) gm/dL Hct 37.2 L (39.0-53.0) % Neutrophils # 9.5 H (1.3-7.7) k/uL APTT (22.0-30.0) sec BUN 31 H (9-20) mg/dL Creatinine 2.36 H (0.66-1.25) mg/dL Glucose 116 H (74-99) mg/dL Triglycerides 357 H (<150) mg/dL HDL Cholesterol 32 L (40-60) mg/dL Urine Protein Trace H (Negative) Urine Blood Large H (Negative) Ur Leukocyte Esterase Trace H (Negative) Urine RBC 92 H (0-5) /hpf Urine WBC 8 H (0-5) /hpf Urine Bacteria Rare H (None) /hpf Urine Mucus Occasional H (None) /hpf 12/05/20 12/05/20 12/05/20 Range/Units 08:37 14:35 17:15 WBC (3.8-10.6) k/uL RBC (4.30-5.90) m/uL Hgb (13.0-17.5) gm/dL Hct (39.0-53.0) % Neutrophils # (1.3-7.7) k/uL APTT 31.9 H 39.5 H (22.0-30.0) sec BUN (9-20) mg/dL Creatinine (0.66-1.25) mg/dL Glucose (74-99) mg/dL Triglycerides (<150) mg/dL HDL Cholesterol (40-60) mg/dL Urine Protein Trace H (Negative) Urine Blood Small H (Negative) Ur Leukocyte Esterase (Negative) Urine RBC (0-5) /hpf Urine WBC (0-5) /hpf Urine Bacteria (None) /hpf Urine Mucus Rare H (None) /hpf Assessment and Plan Assessment: Acute non-ST elevated SC with elevated troponin level. Chest pain Acute kidney injury with creatinine level 2.36 today. Trace proteinuria on urinalysis Hypertension Hyperlipidemia Ongoing nicotine addiction Family history of coronary artery disease DVT prophylaxis patient is already on heparin drip Plan: Patient will be continued on telemetry monitoring. Continue with heparin drip. Monitor renal function and nephrology is on board. Ultrasound renal was ordered. Continue gentle IV rehydration. Cardiology is following. Planning for cardiac catheterization once renal function improves. Further recommendations based on clinical course. Time with Patient: Greater than 30
[2020-03-06] MEDS: PANTOPRAZOLE 40 MG TABLET PO SCH (06:38)
[2020-03-06] MEDS: ASPIRIN 325 MG TAB PO SCH (08:12)
[2020-03-06] MEDS: buPROPion 75 MG TAB PO SCH (08:12)
[2020-03-06] MEDS: ISOSORBIDE MONONITRATE ER 30 MG TAB.ER.24H PO SCH (08:12)
[2020-03-06] MEDS: CITALOPRAM HYDROBROMIDE 20 MG TAB PO SCH (08:12)
[2020-03-06] MEDS: CLOPIDOGREL 75 MG TAB PO SCH (08:13)
[2020-03-06] MEDS: METOPROLOL TARTRATE 25 MG TAB PO SCH ×2 (08:13→20:13)
[2020-03-06 09:12] LABS: Basophils % (A) 0 %; Eosinophils # (A) 0.5 k/uL (0-0.7); Eosinophils % (A) 6 %; HCT 35.1 % (39.0-53.0); HGB 11.3 gm/dL (13.0-17.5); Lymphocytes # (A) 2.2 k/uL (1.0-4.8); Lymphocytes % (A) 30 %; MCH 29.2 pg (25.0-35.0); MCHC 32.2 g/dL (31.0-37.0); MCV 90.6 fL (80.0-100.0); Mean Platelet Volume 7.3; Monocytes # (A) 0.4 k/uL (0-1.0); Monocytes % (A) 5 %; Neutrophils # (A) 4.1 k/uL (1.3-7.7); Neutrophils % (A) 57 %; Platelet Count 219 k/uL (150-450); RBC 3.87 m/uL (4.30-5.90); RDW 13.8 % (11.5-15.5); WBC 7.2 k/uL (3.8-10.6)
[2020-03-06 09:59] LABS: Calcium 8.7 mg/dL (8.4-10.2); Magnesium 2.2 mg/dL (1.6-2.3); Potassium 4.1 mmol/L (3.5-5.1)
--- NOTE | 2020-03-06 10:33 | P.PN ---
Subjective Acute kidney injury versus chronic kidney disease. Renal function a little better today. He is maintained on IV fluids. No chest pain or shortness of breath. Good urine output. Blood pressure stable. Vital signs are stable. General: The patient appeared well nourished and normally developed. HEENT: Head exam is unremarkable. Neck is without jugular venous distension. LUNGS: Breath sounds decreased. HEART: Rate and Rhythm are regular. ABDOMEN: Soft, nontender. EXTREMITITES: No edema. Objective - Vital Signs Vital signs: Vital Signs Temp 98.3 F 03/06/20 08:00 Pulse 71 03/06/20 08:00 Resp 18 03/06/20 08:00 BP 106/63 03/06/20 08:00 Pulse Ox 93 L 03/06/20 08:00 Intake & Output 03/05/20 03/06/20 03/06/20 18:59 06:59 18:59 Intake Total 2240.233 300 453.237 Balance 2240.233 300 453.237 Weight 92.7 kg Intake: IV 120 Heparin Sod,Pork in 0.45% 120 NaCl 25,000 unit In 0.45 % NaCl 1 250ml.bag @ 11 UNITS/KG/HR 9.979 mls/hr IV .Q24H VIJAYA Rx#: [id number] Intake, IV Titration 1400.233 300 231.237 Amount Heparin Sod,Pork in 0.45% 200.233 231.237 NaCl 25,000 unit In 0.45 % NaCl 1 250ml.bag @ 11 UNITS/KG/HR 9.979 mls/hr IV .Q24H VIJAYA Rx#: [id number] Sodium Chloride 0.9% 1, 1200 300 000 ml @ 75 mls/hr IV . [id number] VIJAYA Rx#:[id number] Oral 720 222 Other: # Voids 450 - Labs CBC & Chem 7: 03/06/20 08:40 03/06/20 08:40 Labs: Abnormal Lab Results - Last 24 Hours (Table) 03/05/20 03/05/20 03/05/20 Range/Units 14:35 17:15 23:43 RBC (4.30-5.90) m/uL Hgb (13.0-17.5) gm/dL Hct (39.0-53.0) % APTT 39.5 H 54.9 H (22.0-30.0) sec BUN (9-20) mg/dL Creatinine (0.66-1.25) mg/dL Glucose (74-99) mg/dL Urine Protein Trace H (Negative) Urine Blood Small H (Negative) Urine Mucus Rare H (None) /hpf 03/06/20 03/06/20 03/06/20 Range/Units 08:40 08:40 08:40 RBC 3.87 L (4.30-5.90) m/uL Hgb 11.3 L (13.0-17.5) gm/dL Hct 35.1 L (39.0-53.0) % APTT 54.6 H (22.0-30.0) sec BUN 31 H (9-20) mg/dL Creatinine 2.09 H (0.66-1.25) mg/dL Glucose 149 H (74-99) mg/dL Urine Protein (Negative) Urine Blood (Negative) Urine Mucus (None) /hpf Microbiology - Last 24 Hours (Table) 03/05/20 14:35 Urine Culture - Preliminary Urine,Voided Assessment and Plan Plan: Assessment: 1. Acute kidney injury versus chronic kidney disease. Renal function relatively stable this admission - creatinine 2.09 today. Unknown baseline renal function. UA fairly benign. No hydronephrosis noted on kidney ultrasound . 2. Non-ST elevated myocardial infarction maintained on heparin drip. Cardiology following. 3. Benign hypertension. Stable. 4. Proteinuria and hematuria. Repeat UA fairly benign. UPC 0.08. Follow-up urine culture. 5. Acute systolic CHF with ejection fraction of 40-45%. Plan: Hep-Lock IV fluids. I discussed with the patient the risk of worsening renal failure, potentially requiring renal replacement therapy, post-IV contrast exposure. He understands. If requires cardiac catheterization, patient will be hydrated with normal saline for 8-10 hours pre-cardiac catheterization and post catheterization as well. Avoid nephrotoxins.
[2020-03-06 12:24] LABS: Hemoglobin A1C 5.8 % (4.0-6.0)
--- NOTE | 2020-03-06 12:36 | P.PN ---
Subjective Progress Note Date: 03/06/20 This is a pleasant 54-year-old gentleman with no past medical history of coronary artery disease. He has a history of hypertension, hyperlipidemia, he is a current every day smoker of about one pack per day, family history of CAD in his father and mother. His father was about his age when he began having cardiac issues. He follows regularly with the [facility]. He denies history of kidney disease. Presented to the emergency department after developing some chest pressure. Apparently evening March 03 he developed some nausea and vomiting after dinner after which time he went to bed. When he woke in the morning he had some chest pressure. The pressure persisted so he decided to come to the emergency department. EKG on admission showed sinus rhythm with mild ST depression noted in the inferolateral leads. Chest x-ray on admission showed mild cardiomegaly without acute pulmonary process. Laboratory values on admission showed a white blood cell count 12,400, BUN 26, creatinine 2.19, and troponins have been positive at 0.039, 1.43 and 4.07. Repeat labs this morning show white blood cell count 13,200, BUN 31 and creatinine 2.36. Triglycerides are elevated and glucose has been elevated. He has never been diagnosed with diabetes. He has been initiated on a heparin drip and started on Lopressor 0.5 mg by mouth twice a day and his Zestoretic has been discontinued. Overall he is feeling better. He did have one brief episode of chest pressure through the night relieved with one sublingual nitro. 03/06/2020 Upon examination patient is resting comfortably in bed. He's had no further complaints of chest pressure. He remains on a heparin drip. He is tolerating aspirin, atorvastatin, Plavix, isosorbide 30 mg by mouth daily, metoprolol titrate 25 mg by mouth twice a day. Echocardiogram with Doppler study done yesterday showed impaired LV systolic function with an ejection fraction of 40- 45% with evidence of segmental wall motion abnormalities. Labs today showed loree e improvement in his renal function with a BUN of 31 and creatinine 2.09. The patient has been seen and examined by nephrology who is recommending pre-and post procedure hydration. Objective - Vital Signs Vital signs: Vital Signs Temp 98.3 F 03/06/20 11:11 Pulse 63 03/06/20 11:11 Resp 18 03/06/20 11:11 BP 120/72 03/06/20 11:11 Pulse Ox 97 03/06/20 11:11 Intake & Output 03/05/20 03/06/20 03/06/20 18:59 06:59 18:59 Intake Total 2240.233 300 453.237 Balance 2240.233 300 453.237 Weight 92.7 kg Intake: IV 120 Heparin Sod,Pork in 0.45% 120 NaCl 25,000 unit In 0.45 % NaCl 1 250ml.bag @ 11 UNITS/KG/HR 9.979 mls/hr IV .Q24H VIJAYA Rx#: [id number] Intake, IV Titration 1400.233 300 231.237 Amount Heparin Sod,Pork in 0.45% 200.233 231.237 NaCl 25,000 unit In 0.45 % NaCl 1 250ml.bag @ 11 UNITS/KG/HR 9.979 mls/hr IV .Q24H VIJAYA Rx#: [id number] Sodium Chloride 0.9% 1, 1200 300 000 ml @ 75 mls/hr IV . [id number] VIJAYA Rx#:[id number] Oral 720 222 Other: # Voids 450 - Exam PHYSICAL EXAMINATION: HEENT: Head is atraumatic, normocephalic. Pupils equal, round. Neck is supple. There is no elevated jugular venous pressure. HEART EXAMINATION: Heart sounds regular, S1 and S2 normal. No murmur or gallop heard. CHEST EXAMINATION: Lungs are clear to auscultation and precussion. No chest wall tenderness is noted on palpation or with deep breathing. ABDOMEN: Soft, nontender. Bowel sounds are heard. No organomegaly noted. EXTREMITIES: 2+ peripheral pulses with no evidence of peripheral edema and no calf tenderness noted. NEUROLOGIC patient is awake, alert and oriented x3. . - Labs CBC & Chem 7: 03/06/20 08:40 03/06/20 08:40 Labs: Abnormal Lab Results - Last 24 Hours (Table) 03/05/20 03/05/20 03/05/20 Range/Units 14:35 17:15 23:43 RBC (4.30-5.90) m/uL Hgb (13.0-17.5) gm/dL Hct (39.0-53.0) % APTT 39.5 H 54.9 H (22.0-30.0) sec BUN (9-20) mg/dL Creatinine (0.66-1.25) mg/dL Glucose (74-99) mg/dL Urine Protein Trace H (Negative) Urine Blood Small H (Negative) Urine Mucus Rare H (None) /hpf 03/06/20 03/06/20 03/06/20 Range/Units 08:40 08:40 08:40 RBC 3.87 L (4.30-5.90) m/uL Hgb 11.3 L (13.0-17.5) gm/dL Hct 35.1 L (39.0-53.0) % APTT 54.6 H (22.0-30.0) sec BUN 31 H (9-20) mg/dL Creatinine 2.09 H (0.66-1.25) mg/dL Glucose 149 H (74-99) mg/dL Urine Protein (Negative) Urine Blood (Negative) Urine Mucus (None) /hpf Microbiology - Last 24 Hours (Table) 03/05/20 14:35 Urine Culture - Preliminary Urine,Voided Assessment and Plan Assessment: #1 non-ST elevation MO #2 acute renal failure, improving #3 probable UTI #4 hypertension #5 hyperlipidemia #6 elevated blood glucose #7 nicotine dependence Plan: From cardiology's perspective we will the patient nothing by mouth after midnight. We will hydrate the patient overnight and check electrolytes and renal function in the morning. Depending on renal function patient may undergo coronary angiography tomorrow. The above dictated assessment and findings were discussed with signing physician. The impression and plan of care have been directed as dictated. Jennifer Bynum, Nurse Practitioner, acting as scribe for signing physician.
[2020-03-06] MEDS: SODIUM CHLORIDE 0.9% 1,000 ML IV SCH (13:04)
[2020-03-06] MEDS: ATORVASTATIN 40 MG TAB PO SCH (20:13)
--- NOTE | 2020-03-07 00:02 | P.PN ---
Subjective Progress Note Date: 03/06/20 Principal diagnosis: Acute non-ST elevated [place] Patient is a 54-year-old male with known history of hypertension, hyperlipidemia and currently everyday smoker came to ER with complaints of chest pain. Patient states that he has been having retrosternal chest pain since yesterday morning. Patient woke up with dull aching pain and radiating to his left upper extremity and to his back. Denied any shortness of breath. Pain lasted about 2 hours. Pressure-like sensation and no diaphoresis or lightheadedness. Patient was found to have troponin level 0.039, 1.430 and EKG showed nonspecific ST-T wave changes. Denied any history of recent illnesses. On 03/05/2020 Patient is currently lying in the bed comfortably. Denies any chest pain today. Currently being continued heparin drip. Cardiology has seen the patient and started Plavix and nitrate. Renal function showed BUN 31 and creatinine 2.36. Nephrology is following. Cardiology is planning for catheterization once the renal function improves. 03/06/2020 Patient is currently lying in bed comfortably. Denied any complaints of chest pain or pressure. Current aspirin statins Plavix and Imdur. Metoprolol 20 mg twice daily. 2D echocardiogram showed impaired LV systolic function with ejecti on fraction 40 to 40% with evidence of segmental wall motion abnormalities. Otherwise creatinine level slightly improved to 2.09 today. Nephrology is following and recommends IV hydration pre and post procedure. Cardiology is planning for cardiac catheterization. Current medications reviewed. Current medications reviewed. Objective - Vital Signs Vital signs: Vital Signs Temp 98.6 F 03/06/20 15:13 Pulse 64 03/06/20 15:13 Resp 20 03/06/20 15:13 BP 116/67 03/06/20 15:13 Pulse Ox 95 03/06/20 15:13 Intake & Output 03/05/20 03/06/20 03/06/20 18:59 06:59 18:59 Intake Total 2240.233 300 693.237 Balance 2240.233 300 693.237 Weight 92.7 kg Intake: IV 120 Heparin Sod,Pork in 0.45% 120 NaCl 25,000 unit In 0.45 % NaCl 1 250ml.bag @ 11 UNITS/KG/HR 9.979 mls/hr IV .Q24H [facility] Rx#: [id number] Intake, IV Titration 1400.233 300 231.237 Amount Heparin Sod,Pork in 0.45% 200.233 231.237 NaCl 25,000 unit In 0.45 % NaCl 1 250ml.bag @ 11 UNITS/KG/HR 9.979 mls/hr IV .Q24H [facility] Rx#: [id number] Sodium Chloride 0.9% 1, 1200 300 000 ml @ 75 mls/hr IV . [id number] [facility] Rx#:[id number] Oral 720 462 Other: # Voids 450 - Exam PHYSICAL EXAMINATION: Patient is lying in the bed comfortably, no acute distress, awake alert and o riented.. HEENT: Normocephalic. Neck is supple. Pupils reactive. Nostrils clear. Oral cavity is moist. Ears reveal no drainage. Neck reveals no JVD, carotid bruits, or thyromegaly. CHEST EXAMINATION: Trachea is central. Symmetrical expansion. Lung stevens clear to auscultation and percussion. CARDIAC: Normal S1, S2 with no gallops. No murmurs ABDOMEN: Soft. Bowel sounds normal. No organomegaly. No abdominal bruits. Extremities: reveal no edema. No clubbing or cyanosis Neurologically awake, alert, oriented x3 with well-coordinated movements. No focal deficits noted Skin: No rash or skin lesions. Psychiatric: Coperative. Nonsuicidal Musculoskeletal: No joint swelling or deformity. Normal range of motion. - Labs CBC & Chem 7: 03/06/20 08:40 03/06/20 08:40 Labs: Abnormal Lab Results - Last 24 Hours (Table) 03/05/20 03/05/20 03/06/20 Range/Units 17:15 23:43 08:40 RBC 3.87 L (4.30-5.90) m/uL Hgb 11.3 L (13.0-17.5) gm/dL Hct 35.1 L (39.0-53.0) % APTT 39.5 H 54.9 H (22.0-30.0) sec BUN (9-20) mg/dL Creatinine (0.66-1.25) mg/dL Glucose (74-99) mg/dL 03/06/20 03/06/20 Range/Units 08:40 08:40 RBC (4.30-5.90) m/uL Hgb (13.0-17.5) gm/dL Hct (39.0-53.0) % APTT 54.6 H (22.0-30.0) sec BUN 31 H (9-20) mg/dL Creatinine 2.09 H (0.66-1.25) mg/dL Glucose 149 H (74-99) mg/dL Microbiology - Last 24 Hours (Table) 03/05/20 14:35 Urine Culture - Preliminary Urine,Voided Assessment and Plan Assessment: Acute non-ST elevated AR with elevated troponin level. Chest pain Acute kidney injury with creatinine level 2.36 --2.09. Trace proteinuria on urinalysis Hypertension Hyperlipidemia Ongoing nicotine addiction Family history of coronary artery disease DVT prophylaxis patient is already on heparin drip Plan: Patient will be continued on telemetry monitoring. Continue with heparin drip. Monitor renal function and nephrology is on board. Ultrasound renal was ordered. Continue gentle IV rehydration. Cardiology is following. Planning for cardiac catheterization once renal function improves. Further recommendations based on clinical course. Time with Patient: Greater than 30
[2020-03-07] MEDS ORDERED: ATORVASTATIN 40 MG TAB PO STA (02:15)
[2020-03-07] MEDS: PANTOPRAZOLE 40 MG TABLET PO SCH (05:27)
[2020-03-07] MEDS: ISOSORBIDE MONONITRATE ER 30 MG TAB.ER.24H PO SCH (05:27)
[2020-03-07] MEDS: CLOPIDOGREL 75 MG TAB PO SCH (05:28)
[2020-03-07] MEDS: buPROPion 75 MG TAB PO SCH (05:28)
[2020-03-07] MEDS: ASPIRIN 325 MG TAB PO SCH (05:28)
[2020-03-07] MEDS: CITALOPRAM HYDROBROMIDE 20 MG TAB PO SCH (05:28)
[2020-03-07] MEDS: METOPROLOL TARTRATE 25 MG TAB PO SCH ×2 (05:28→20:08)
[2020-03-07] MEDS: SODIUM CHLORIDE 0.9% 1,000 ML IV SCH ×3 (05:29→20:10)
[2020-03-07 08:39] LABS: Basophils # (A) 0.1 k/uL (0-0.2); Basophils % (A) 1 %; Eosinophils # (A) 0.6 k/uL (0-0.7); Eosinophils % (A) 8 %; HCT 33.1 % (39.0-53.0); HGB 11.4 gm/dL (13.0-17.5); Lymphocytes # (A) 2.4 k/uL (1.0-4.8); Lymphocytes % (A) 29 %; MCH 30.6 pg (25.0-35.0); MCHC 34.5 g/dL (31.0-37.0); MCV 88.6 fL (80.0-100.0); Mean Platelet Volume 7.2; Monocytes # (A) 0.5 k/uL (0-1.0); Monocytes % (A) 5 %; Neutrophils # (A) 4.6 k/uL (1.3-7.7); Neutrophils % (A) 55 %; Platelet Count 226 k/uL (150-450); RBC 3.74 m/uL (4.30-5.90); RDW 13.2 % (11.5-15.5); WBC 8.4 k/uL (3.8-10.6)
[2020-03-07 08:55] LABS: Calcium 8.9 mg/dL (8.4-10.2); Potassium 4.2 mmol/L (3.5-5.1)
[2020-03-07] MEDS: HEPARIN SOD,PORK IN 0.45% NACL 25,000 UNIT in 0.45% NACL 1 250ML.BAG IV SCH ×2 (10:20→23:25)
[2020-03-07] MEDS: HEPARIN SODIUM,PORCINE 5,000 UNIT/ML 1 ML VIAL IV PRN (10:21)
--- NOTE | 2020-03-07 11:51 | P.PN ---
Subjective This is a pleasant 54-year-old male past medical history significant for hypertension, dyslipidemia and chronic nicotine dependence. He is seen and examined sitting up in bed in no acute distress. He denies symptoms of chest pain, shortness of breath, dizziness or palpitations. Blood pressure 112/72 heart rate 59 afebrile maintaining oxygen saturation on room air. Laboratory data reviewed, WBC 8.4, hemoglobin 11.4, platelets 226, sodium 140, potassium 4.2, creatinine 1.89 and fourth troponin 5.04. Currently maintained on aspirin 325 mg daily, atorvastatin 40 mg daily, Plavix 75 mg daily, metoprolol 25 mg twice a day, Imdur 30 mg daily and heparin infusion. GENERAL: Well-appearing, well-nourished and in no acute distress. NECK: Supple without JVD or thyromegaly. LUNGS: Breath sounds clear to auscultation bilaterally. Respiration equal and unlabored. No wheezes, rales or rhonchi. HEART: Regular rate and rhythm without murmurs, rubs or gallops. S1 and S2 heard. EXTREMITIES: Normal range of motion, no edema. No clubbing or cyanosis. Peripheral pulses intact. ASSESSMENT Non-ST elevated myocardial infarction Acute renal failure, improving Leukocytosis Hypertension Dyslipidemia Chronic nicotine dependence PLAN Continue with IV hydration for another 24 hours. Repeat BMP in the morning. Dr. Tavera we'll proceed with cardiac catheterization tomorrow for renal function continues to improve. I have discussed the risks, benefits and alternative therapies for the above-mentioned procedure and for both sedation/analgesia as well as necessary blood product administration, if indicated, as they pertain to this patient. The patient has indicated understanding and acceptance of the risks and procedures discussed. Questions have been answered appropriately and he is agreeable to move forward with the above stated procedure. He will be nothing by mouth after midnight tonight. Decrease aspirin to 81 mg daily. Nurse Practitioner note has been reviewed, I agree with a documented findings and plan of care. Patient was seen and examined. Objective - Vital Signs Vital signs: Vital Signs Temp 98.2 F 03/07/20 11:25 Pulse 59 L 03/07/20 11:25 Resp 18 03/07/20 11:25 BP 112/72 03/07/20 11:25 Pulse Ox 95 03/07/20 11:25 Intake & Output 03/06/20 03/07/20 03/07/20 18:59 06:59 18:59 Intake Total 933.237 740 225 Balance 933.237 740 225 Weight 92 kg Intake: Intake, IV Titration 231.237 300 225 Amount Heparin Sod,Pork in 0.45% 231.237 NaCl 25,000 unit In 0.45 % NaCl 1 250ml.bag @ 11 UNITS/KG/HR 9.979 mls/hr IV .Q24H [facility] Rx#: [id number] Sodium Chloride 0.9% 1, 300 225 000 ml @ 75 mls/hr IV . [id number] [facility] Rx#:[id number] Oral 702 440 - Labs CBC & Chem 7: 03/07/20 08:18 03/07/20 08:18 Labs: Abnormal Lab Results - Last 24 Hours (Table) 03/07/20 03/07/20 03/07/20 Range/Units 08:18 08:18 08:18 RBC 3.74 L (4.30-5.90) m/uL Hgb 11.4 L (13.0-17.5) gm/dL Hct 33.1 L (39.0-53.0) % APTT 30.6 H (22.0-30.0) sec Chloride 109 H (98-107) mmol/L BUN 28 H (9-20) mg/dL Creatinine 1.89 H (0.66-1.25) mg/dL Troponin I (0.000-0.034) ng/mL 03/07/20 Range/Units 08:18 RBC (4.30-5.90) m/uL Hgb (13.0-17.5) gm/dL Hct (39.0-53.0) % APTT (22.0-30.0) sec Chloride (98-107) mmol/L BUN (9-20) mg/dL Creatinine (0.66-1.25) mg/dL Troponin I 5.040 H* (0.000-0.034) ng/mL Microbiology - Last 24 Hours (Table) 03/05/20 14:35 Urine Culture - Final Urine,Voided
--- NOTE | 2020-03-07 15:09 | P.PN ---
Subjective Acute non-ST elevated [place] Patient is a 54-year-old male with known history of hypertension, hyperlipidemia and currently everyday smoker came to ER with complaints of chest pain. Patient states that he has been having retrosternal chest pain since yesterday morning. Patient woke up with dull aching pain and radiating to his left upper extremity and to his back. Denied any shortness of breath. Pain lasted about 2 hours. Pressure-like sensation and no diaphoresis or lightheadedness. Patient was found to have troponin level 0.039, 1.430 and EKG showed nonspecific ST-T wave changes. Denied any history of recent illnesses. On 03/05/2020 Patient is currently lying in the bed comfortably. Denies any chest pain today. Currently being continued heparin drip. Cardiology has seen the patient and started Plavix and nitrate. Renal function showed BUN 31 and creatinine 2.36. Nephrology is following. Cardiology is planning for catheterization once the renal function improves. 03/06/2020 Patient is currently lying in bed comfortably. Denied any complaints of chest pain or pressure. Current aspirin statins Plavix and Imdur. Metoprolol 20 mg twice daily. 2D echocardiogram showed impaired LV systolic function with ejection fraction 40 to 40% with evidence of segmental wall motion abnormalities. Otherwise creatinine level slightly improved to 2.09 today. Nephrology is following and recommends IV hydration pre and post procedure. Cardiology is planning for cardiac catheterization. 03/07/2020 Patient denied any chest pain patient will undergo cardiac catheterization tomorrow patient is receiving IV hydration. Patient appears to have chronic kidney disease stage 3-4 Constitutional: Denied any fatigue denied any fever. Cardio vascular: denied any chest pain, palpitations Gastrointestinal denied any nausea vomiting Pulmonary: Denied any shortness of breath cough Neurologic denied any new focal deficits All inpatient medications were reviewed and appropriate changes in these medications as dictated in the interval history and assessment and plan. Objective - Vital Signs Vital signs: Vital Signs Temp 98.2 F 03/07/20 11:25 Pulse 59 L 03/07/20 11:25 Resp 18 03/07/20 11:25 BP 112/72 03/07/20 11:25 Pulse Ox 95 03/07/20 11:25 Intake & Output 03/06/20 03/07/20 03/07/20 18:59 06:59 18:59 Intake Total 933.237 740 465 Balance 933.237 740 465 Weight 92 kg Intake: Intake, IV Titration 231.237 300 225 Amount Heparin Sod,Pork in 0.45% 231.237 NaCl 25,000 unit In 0.45 % NaCl 1 250ml.bag @ 11 UNITS/KG/HR 9.979 mls/hr IV .Q24H [facility] Rx#: [id number] Sodium Chloride 0.9% 1, 300 225 000 ml @ 75 mls/hr IV . [id number] [facility] Rx#:[id number] Oral 702 440 240 - Exam PHYSICAL EXAMINATION: GENERAL: The patient is alert and oriented x3, not in any acute distress. Well developed, well nourished. HEENT: Pupils are round and equally reacting to light. EOMI. No scleral icterus. No conjunctival pallor. Normocephalic, atraumatic. No pharyngeal erythema. No thyromegaly. CARDIOVASCULAR: S1 and S2 present. No murmurs, rubs, or gallops. PULMONARY: Chest is clear to auscultation, no wheezing or crackles. ABDOMEN: Soft, nontender, nondistended, normoactive bowel sounds. No palpable o rganomegaly. MUSCULOSKELETAL: No joint swelling or deformity. EXTREMITIES: No cyanosis, clubbing, or pedal edema. NEUROLOGICAL: Gross neurological examination did not reveal any focal deficits. SKIN: No rashes. - Labs CBC & Chem 7: 03/07/20 08:18 03/07/20 08:18 Labs: Abnormal Lab Results - Last 24 Hours (Table) 03/07/20 03/07/20 03/07/20 Range/Units 08:18 08:18 08:18 RBC 3.74 L (4.30-5.90) m/uL Hgb 11.4 L (13.0-17.5) gm/dL Hct 33.1 L (39.0-53.0) % APTT 30.6 H (22.0-30.0) sec Chloride 109 H (98-107) mmol/L BUN 28 H (9-20) mg/dL Creatinine 1.89 H (0.66-1.25) mg/dL Troponin I (0.000-0.034) ng/mL 03/07/20 Range/Units 08:18 RBC (4.30-5.90) m/uL Hgb (13.0-17.5) gm/dL Hct (39.0-53.0) % APTT (22.0-30.0) sec Chloride (98-107) mmol/L BUN (9-20) mg/dL Creatinine (0.66-1.25) mg/dL Troponin I 5.040 H* (0.000-0.034) ng/mL Microbiology - Last 24 Hours (Table) 03/05/20 14:35 Urine Culture - Final Urine,Voided Assessment and Plan Plan: Acute non-ST elevated [place] and patient will undergo cardiac catheterization tomorrow patient is on IV heparin drip. Chest pain Chronic kidney disease with mild acute renal failure patient appears to have stage 3-4 chronic kidney disease Hypertension Hyperlipidemia Ongoing nicotine addiction Family history of coronary artery disease DVT prophylaxis patient is already on heparin drip
--- NOTE | 2020-03-07 15:47 | PN ---
PROGRESS NOTE Patient is seen for followup for acute kidney injury. He is comfortable, awake. He is not in any acute distress. On examination today, blood pressure is 112/72, heart rate 59 per minute. Patient is afebrile. EXAMINATION OF THE HEART: S1 and S2. EXAMINATION OF LUNGS: Decreased breath sounds at bases. ABDOMEN: Soft, non-tender. Examination of lower extremities shows no significant edema. 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 Labs show sodium 140, potassium 4.2, chloride 109, BUN 28, serum creatinine 1.89. Hemoglobin 11.4 g/dL. ASSESSMENT: 1. Acute kidney injury. Renal function somewhat improved. The creatinine has mostly been around 2. Today it is 1.8 mg/dL. UA is benign. No evidence of hydronephrosis on ultrasound. 2. [id number] myocardial infarction, maintained on heparin drip. Scheduled for cardiac catheterization tomorrow. 3. Acute systolic congestive heart failure. 4. Cardiomyopathy, ejection fraction 40% to 45%. PLAN: Okay to proceed with cardiac cath in a.m. Add gentle IV hydration prior to procedure. Continue to avoid other nephrotoxic agents. MMODL / IJN: [id number] /
[2020-03-07] MEDS: ATORVASTATIN 40 MG TAB PO SCH (20:08)
[2020-03-08] MEDS: CLOPIDOGREL 75 MG TAB PO SCH (05:46)
[2020-03-08] MEDS: METOPROLOL TARTRATE 25 MG TAB PO SCH ×2 (05:46→19:51)
[2020-03-08] MEDS: ISOSORBIDE MONONITRATE ER 30 MG TAB.ER.24H PO SCH (05:46)
[2020-03-08] MEDS: PANTOPRAZOLE 40 MG TABLET PO SCH (05:46)
[2020-03-08] MEDS ORDERED: ASPIRIN 325 MG TAB PO ONE (06:00)
[2020-03-08 08:51] LABS: Calcium 8.8 mg/dL (8.4-10.2); Potassium 4.6 mmol/L (3.5-5.1)
[2020-03-08] MEDS ORDERED: ASPIRIN 81 MG PO SCH (09:00)
[2020-03-08] MEDS ORDERED: IV FLUID CONTINUATION 250 ML IV ONE (09:13)
[2020-03-08] MEDS ORDERED: LIDOCAINE 1% INJ 10MG/ML (20 ML MDV) ONE (09:21)
[2020-03-08] MEDS ORDERED: fentaNYL (PF) 50 MCG/ML 2 ML AMP ONE (09:21)
[2020-03-08] MEDS ORDERED: fentaNYL (PF) 50 MCG/ML 2 ML AMP IV ONE (09:36)
[2020-03-08] MEDS ORDERED: MIDAZOLAM 2 MG/2 ML VIAL IV ONE (09:36)
[2020-03-08] MEDS ORDERED: LIDOCAINE 1% INJ 10MG/ML (20 ML MDV) SQ ONE (09:40)
--- NOTE | 2020-03-08 10:22 | CC ---
CARDIAC CATHETERIZATION REPORT INDICATION: Acute non ST-segment elevation IA. PROCEDURE NOTE: After obtaining informed consent, left heart catheterization and coronary angiogram were performed via the right femoral artery using catheter. Patient tolerated the procedure well without any obvious immediate complication. was performed. Angio-Seal with deployed for hemostasis. FINDINGS: 1. Hemodynamics. 2. Central aortic pressure 130/70 mm. ANGIOGRAPHIC DATA: LEFT MAIN CORONARY ARTERY: The left main coronary artery appears calcified but is free of stenosis. Divides into left anterior descending coronary artery and circumflex coronary artery. LAD: Shows a mild to moderate atherosclerotic plaque in its midportion. Circumflex coronary artery and its branches are free of significant disease. Right coronary artery is totally occluded in the proximal part with [id number] collaterals. CONCLUSION: Occluded right coronary artery with [id number] collaterals. Right occlusion is probably the reason on his initial presentation, I am going to ask Dr. SARA Mckeon to evaluate the angiographic data and advise an angioplasty of the same. MMODL / IJN: [id number] /
[2020-03-08] MEDS ORDERED: HEPARIN SODIUM 1,000 UN/ML (10ML VL) ONE (10:44)
[2020-03-08] MEDS ORDERED: HEPARIN SODIUM 1,000 UN/ML (10ML VL) IV ONE (10:45)
[2020-03-08] MEDS ORDERED: IOPAMIDOL-370 125ML BTL INJ ONE (10:53)
[2020-03-08] MEDS ORDERED: IOPAMIDOL-370 100ML BTL INJ ONE (11:06)
--- NOTE | 2020-03-08 12:13 | PTCA ---
PERCUTANEOUSTRANS CORORONARY ANGIOGRAPHY DATE OF SERVICE: 03/08/2020. 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 PERFORMED BY: Dr. Ghulam Mckeon. Moderate conscious sedation time was 16 minutes. Patient was administered Versed, oxygenation, hemodynamics and EKG were monitored closely. CLINICAL INFORMATION: Mr. Sandeep Hilton is a 54-year-old gentleman with history of hypertension, hyperlipidemia who presented to the hospital with chest discomfort, had a mild troponin elevation and had inferior wall motion abnormality. Dr. Tavera performed cardiac catheterization, which revealed that the RCA was totally occluded in the midportion. The opacified RCA was actually highly diseased with a plaque and also a conus branch came off from there. LAD had a moderate mid lesion and there was diffuse disease throughout the LAD with mild to moderate calcification. Circumflex was nondominant but good caliber without significant disease. I explained to the patient that we will be dealing with a TYPE INSPECTOR occlusion. I will attempt opening of the RCA. However patient's creatinine is 1.6 and we had a very limited amount of contrast to work with of about 80 mL. PROCEDURE NOTE: The existing 6-[place] introducer in the right femoral artery was used to perform the procedure. I used a left 3.5 guide catheter to get better images of the LAD. After obtaining LAD injection, I noted at the mid LAD location there was a moderate calcification with a lesion of about 50% to 60%. I then turned my attention to the RCA. I used a standard right Alberto-type guide catheter to cannulate the right coronary artery. I used a combination of a Whisper wire and a 45 degree super cross catheter. With this, I tried to cross the total occlusion but I was unsuccessful. The catheter also called what seems to be a dissection right in the proximal portion where the conus branch came off. This dissection was self-limited with some staining, but the flow in the RCA was unchanged. The patient had no symptoms or EKG changes. I therefore did not persist the opening of the total occlusion. I noted that this was a chronic occlusion with collateral from the left system. I sutured the sheath. The patient received 4000 units of heparin. This was unsuccessful chronic total occlusion intervention with a complicated dissection in the proximal portion of the RCA which was a self-contained type 1 dissection. The details were discussed with the patient and . The patient was sent back to the room in a stable condition with the sheath sutured. I will try and transfer him to [facility] for TYPE INSPECTOR intervention hopefully later on today or more likely tomorrow. BELL / NATHANIEL: [id number] /
--- NOTE | 2020-03-08 12:25 | P.PN ---
Subjective Acute non-ST elevated [place] Patient is a 54-year-old male with known history of hypertension, hyperlipidemia and currently everyday smoker came to ER with complaints of chest pain. Patient states that he has been having retrosternal chest pain since yesterday morning. Patient woke up with dull aching pain and radiating to his left upper extremity and to his back. Denied any shortness of breath. Pain lasted about 2 hours. Pressure-like sensation and no diaphoresis or lightheadedness. Patient was found to have troponin level 0.039, 1.430 and EKG showed nonspecific ST-T wave changes. Denied any history of recent illnesses. On 03/05/2020 Patient is currently lying in the bed comfortably. Denies any chest pain today. Currently being continued heparin drip. Cardiology has seen the patient and started Plavix and nitrate. Renal function showed BUN 31 and creatinine 2.36. Nephrology is following. Cardiology is planning for catheterization once the renal function improves. 03/06/2020 Patient is currently lying in bed comfortably. Denied any complaints of chest pain or pressure. Current aspirin statins Plavix and Imdur. Metoprolol 20 mg twice daily. 2D echocardiogram showed impaired LV systolic function with ejection fraction 40 to 40% with evidence of segmental wall motion abnormalities. Otherwise creatinine level slightly improved to 2.09 today. Nephrology is following and recommends IV hydration pre and post procedure. Cardiology is planning for cardiac catheterization. 03/07/2020 Patient denied any chest pain patient will undergo cardiac catheterization tomorrow patient is receiving IV hydration. Patient appears to have chronic kidney disease stage 3. 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 Because of which a cardiology is recommending transferred to [facility] for stenting of this totally occluded RCA. Patient had moderate disease in LAD as well. Patient will be transferred to [facility] tomorrow. Patient the had creatinine of 1.6 which is improved compared to yesterday improved with IV fluids Constitutional: Denied any fatigue denied any fever. Cardio vascular: denied any chest pain, palpitations Gastrointestinal denied any nausea vomiting Pulmonary: Denied any shortness of breath cough Neurologic denied any new focal deficits All inpatient medications were reviewed and appropriate changes in these medications as dictated in the interval history and assessment and plan. Objective - Vital Signs Vital signs: Vital Signs Temp 97.8 F 03/08/20 07:45 Pulse 55 L 03/08/20 07:45 Resp 16 03/08/20 07:45 BP 112/60 03/08/20 07:45 Pulse Ox 95 03/08/20 07:45 Intake & Output 03/07/20 03/08/20 03/08/20 18:59 06:59 18:59 Intake Total 465 939.251 240 Balance 465 939.251 240 Weight 91.5 kg Intake: IV 150 Intake, IV Titration 225 699.251 Amount Heparin Sod,Pork in 0.45% 249.251 NaCl 25,000 unit In 0.45 % NaCl 1 250ml.bag @ 11 UNITS/KG/HR 9.979 mls/hr IV .Q24H [facility] Rx#: [id number] Sodium Chloride 0.9% 1, 225 450 000 ml @ 75 mls/hr IV . [id number] [facility] Rx#:[id number] Oral 240 240 90 Other: # Voids 1 2 # Bowel Movements 1 - Exam PHYSICAL EXAMINATION: GENERAL: The patient is alert and oriented x3, not in any acute distress. Well developed, well nourished. HEENT: Pupils are round and equally reacting to light. EOMI. No scleral icterus. No conjunctival pallor. Normocephalic, atraumatic. No pharyngeal erythema. No thyromegaly. CARDIOVASCULAR: S1 and S2 present. No murmurs, rubs, or gallops. PULMONARY: Chest is clear to auscultation, no wheezing or crackles. ABDOMEN: Soft, nontender, nondistended, normoactive bowel sounds. No palpable organomegaly. MUSCULOSKELETAL: No joint swelling or deformity. EXTREMITIES: No cyanosis, clubbing, or pedal edema. NEUROLOGICAL: Gross neurological examination did not reveal any focal deficits. SKIN: No rashes. - Labs CBC & Chem 7: 03/07/20 08:18 03/08/20 08:14 Labs: Abnormal Lab Results - Last 24 Hours (Table) 03/07/20 03/08/20 03/08/20 Range/Units 17:04 08:14 08:14 APTT 57.0 H 34.2 H (22.0-30.0) sec Chloride 110 H (98-107) mmol/L BUN 26 H (9-20) mg/dL Creatinine 1.61 H (0.66-1.25) mg/dL Assessment and Plan Plan: Acute non-ST elevated [place], patient is status post cardiac catheterization found to have a total occlusion of the RCA. Patient is on aspirin and Plavix at this time. Chest pain Chronic kidney disease with mild acute renal failure patient appears to have stage 3 chronic kidney disease -Acute renal failure: Etiology is not clear improved with IV fluids. Hypertension Hyperlipidemia Ongoing nicotine addiction Family history of coronary artery disease DVT prophylaxis patient is already on heparin drip
--- NOTE | 2020-03-08 15:05 | P.DS ---
Providers Date of admission: 03/05/20 10:37 Attending physician: Karla Collazo Consults: 03/04/20 14:34 Consult Physician Urgent Consulting Provider: Letha Simmons Consult Reason/Comments: nstemi Do you want consulting provider notified?: Already Contacted 03/04/20 18:50 Consult Physician Routine Consulting Provider: Jesus Brito Consult Reason/Comments: arf Do you want consulting provider notified?: Yes Primary care physician: [facility] Course: 54-year-old male with known history of hypertension, hyperlipidemia and currently everyday smoker came to ER with complaints of chest pain. Patient states that he has been having retrosternal chest pain since yesterday morning. Patient woke up with dull aching pain and radiating to his left upper extremity and to his back. Denied any shortness of breath. Pain lasted about 2 hours. Pressure-like sensation and no diaphoresis or lightheadedness. Patient was found to have troponin level 0.039, 1.430 and EKG showed nonspecific ST-T wave changes. Denied any history of recent illnesses. On 03/05/2020 Patient is currently lying in the bed comfortably. Denies any chest pain today. Currently being continued heparin drip. Cardiology has seen the patient and started Plavix and nitrate. Renal function showed BUN 31 and creatinine 2.36. Nephrology is following. Cardiology is planning for catheterization once the renal function improves. 03/06/2020 Patient is currently lying in bed comfortably. Denied any complaints of chest pain or pressure. Current aspirin statins Plavix and Imdur. Metoprolol 20 mg twice daily. 2D echocardiogram showed impaired LV systolic function with ejection fraction 40 to 40% with evidence of segmental wall motion abnormalities. Otherwise creatinine level slightly improved to 2.09 today. Nephrology is following and recommends IV hydration pre and post procedure. Cardiology is planning for cardiac catheterization. 03/07/2020 Patient denied any chest pain patient will undergo cardiac catheterization tomorrow patient is receiving IV hydration. Patient appears to have chronic kidney disease stage 3. 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 Because of which a cardiology is recommending transferred to [facility] for stenting of this totally occluded RCA. Patient had moderate disease in LAD as well. Patient will be transferred to [facility] today.. Patient the had creatinine of 1.6 which is improved compared to yesterday improved with IV fluids Assessment and Plan Plan: Acute non-ST elevated MA, patient is status post cardiac catheterization found to have a total occlusion of the RCA. Patient is on aspirin and Plavix at this time. Chronic kidney disease with mild acute renal failure patient appears to have stage 3 chronic kidney disease -Acute renal failure: Etiology is not clear improved with IV fluids. Hypertension Hyperlipidemia Ongoing nicotine addiction Family history of coronary artery disease Patient Condition at Discharge: Fair Plan - Discharge Summary Discharge Rx Participant: No New Discharge Prescriptions: No Action buPROPion [Wellbutrin] 75 mg PO DAILY Citalopram Hydrobromide [CeleXA] 40 mg PO DAILY Atorvastatin [Lipitor] 10 mg PO HS Lisinopril-Hctz 20-12.5 mg [Zestoretic 20-12.5] 1 tab PO DAILY Discharge Medication List Atorvastatin [Lipitor] 10 mg PO HS 03/04/20 [History] Citalopram Hydrobromide [CeleXA] 40 mg PO DAILY 03/04/20 [History] Lisinopril-Hctz 20-12.5 mg [Zestoretic 20-12.5] 1 tab PO DAILY 03/04/20 [History] buPROPion [Wellbutrin] 75 mg PO DAILY 03/04/20 [History] Follow up Appointment(s)/Referral(s): [facility],Clinic [Primary Care Provider] - 1-2 days Activity/Diet/Wound Care/Special Instructions: Nursing: please fax all new prescriptions to the [facility]: [phone] then send meds to [facility] and call Case Management to use [facility]
[2020-03-08] MEDS: CITALOPRAM HYDROBROMIDE 20 MG TAB PO SCH (17:58)
[2020-03-08] MEDS: buPROPion 75 MG TAB PO SCH (17:58)
[2020-03-08] MEDS: SODIUM CHLORIDE 0.9% 1,000 ML IV SCH (18:12)
[2020-03-08] MEDS: ATORVASTATIN 40 MG TAB PO SCH (19:51)
[2020-03-08 20:37] VITALS: BP 142/76; PULSE 72; RESP 18; TEMP 98.3
[2020-03-08] MEDS ORDERED: HEPARIN SODIUM,PORCINE 5,000 UNIT/ML 1 ML VIAL SQ SCH (21:00)
--- NOTE | 2020-03-09 08:50 | CDI ---
Documentation Clarification Form Date: 03/09/2020 08:47:03 AM From: Nasreen SanchezDollKAYLA, CCDS Admit Date: 03/05/2020 10:37:00 AM Patient Name: Sandeep Hilton Visit Number: [id number] Discharge Date: 03/08/2020 09:53:00 PM ATTENTION: The Clinical Documentation Specialists (CDI) and [facility] Coding Staff appreciate your assistance in clarifying documentation. Please respond to the clarification below the line at the bottom and electronically sign. The CDI & [facility] Coding staff will review the response and follow-up if needed. Please note: Queries are made part of the Legal Health Record. If you have any questions, please contact the author of this message via ITS. Dr. Veronica Mckeon: Per the 03/08 PTCA procedure note, the following is documented: "I then turned my attention to the RCA. I used a standard right Alberto-type guide catheter to cannulate the right coronary artery. I used a combination of a Whisper wire and a 45 degree super cross catheter. With this, I tried to cross the total occlusion but I was unsuccessful. The catheter also called what seems to be a dissection right in the proximal portion where the conus branch came off. This dissection was self-limited with some staining, but the flow in the RCA was unchanged. The patient had no symptoms or EKG changes. I therefore did not persist the opening of the total occlusion. I noted that this was a chronic occlusion with collateral from the left system. I sutured the sheath. The patient received 4000 units of heparin. This was unsuccessful chronic total occlusion intervention with a complicated dissection in the proximal portion of the RCA which was a self-contained type 1 dissection." History/Risk Factors: Hypertensiion, Hyperlipidemia, Nicotine dependence. Clinical Indicators: Presented to the ED 03/04 with chest and left arm pain. Admitted with chest pain for evaluation. Procedures: 03/08 Heart Catheterization with PTCA and attempted dilation of the RCA. Treatment: po Aspirin, IV Heparin drip, Nitro sl, Nitropaste, po Lamont, IV fluid 1,000 mls @ 75 mls/hr q13H Based on the clinical evidence and your professional judgment, please clarify the following statement and specify the significance of the dissection that occurred during the procedure: "The catheter also called what seems to be a dissection right in the proximal portion where the conus branch came off." Dissection was a expected outcome of the procedure Dissection was an unexpected outcome of the procedure Other (please specify) _Dissection of this type is a possible complication during PCI of about 2-3% with calcified plaque and was explained to Patient and his . Unable to determine (Last Revision: April 2019) Dissection of this type is a possible complication during PCI of about 2-3% with calcified plaque and was explained to Patient and his . RIRI
== END 2020-03-08 21:53 | disposition short-term general hospital (02) | DRG 250 ==
LOC: SUPCPDRO 11:55 → EC 11:55 → 3SCARD 14:34 → OBSVTOIN 03-05 10:37
PROVIDERS: ADMIT Hospitalist; ATTEND Hospitalist
PROC: B2111ZZ Fluoroscopy of Multiple Coronary Arteries using Low Osmolar Contrast (ICD-10-PCS; 2020-03-08)
PROC: 02713ZZ Dilation of Coronary Artery, Two Arteries, Percutaneous Approach (ICD-10-PCS; principal; 2020-03-08 09:00)
PROC: 4A023N7 Measurement of Cardiac Sampling and Pressure, Left Heart, Percutaneous Approach (ICD-10-PCS; 2020-03-08 09:00)
DX: I21.4 Non-ST elevation (NSTEMI) myocardial infarction (principal); I25.42 Coronary artery dissection; I50.21 Acute systolic (congestive) heart failure; N17.9 Acute kidney failure, unspecified; I13.0 Hypertensive heart and chronic kidney disease with heart failure and stage 1 through stage 4 chronic kidney disease, or unspecified chronic kidney disease; I42.9 Cardiomyopathy, unspecified; N39.0 Urinary tract infection, site not specified; N18.30 Chronic kidney disease, stage 3 unspecified; Z20.828 Contact with and (suspected) exposure to other viral communicable diseases; I25.10 Atherosclerotic heart disease of native coronary artery without angina pectoris; E78.5 Hyperlipidemia, unspecified; E66.9 Obesity, unspecified; F17.210 Nicotine dependence, cigarettes, uncomplicated; R31.9 Hematuria, unspecified; E78.1 Pure hyperglyceridemia; R73.9 Hyperglycemia, unspecified; Z68.32 Body mass index [BMI] 32.0-32.9, adult; Z79.899 Other long term (current) drug therapy; Z98.890 Other specified postprocedural states; Z82.49 Family history of ischemic heart disease and other diseases of the circulatory system; Z84.1 Family history of disorders of kidney and ureter
CPT/HCPCS: 36415; 71046; 76770; 80048; 80053; 80061; 81001; 82570; 83036; 83735; 84156; 84484; 85025; 85610; 85730; 87086; 87635; 92920; 93005; 93306; 93454; 96365; 96366; 96376; 99285

== ENCOUNTER → 2020-03-31 | Outpatient (CLI) | payer OTHER ==
[2020-03-31 12:19] LABS: Basophils # (A) 0.1 k/uL (0-0.2); Basophils % (A) 1 %; Eosinophils # (A) 0.8 k/uL (0-0.7); Eosinophils % (A) 11 %; HGB 11.9 gm/dL (13.0-17.5); Lymphocytes # (A) 1.9 k/uL (1.0-4.8); Lymphocytes % (A) 26 %; MCH 30.5 pg (25.0-35.0); MCHC 34.1 g/dL (31.0-37.0); MCV 89.4 fL (80.0-100.0); Mean Platelet Volume 6.8; Monocytes # (A) 0.5 k/uL (0-1.0); Monocytes % (A) 6 %; Neutrophils # (A) 4.1 k/uL (1.3-7.7); Neutrophils % (A) 54 %; Platelet Count 234 k/uL (150-450); RBC 3.92 m/uL (4.30-5.90); RDW 13.9 % (11.5-15.5); WBC 7.5 k/uL (3.8-10.6)
[2020-03-31 19:59] LABS: African American GFR (CKD) 65.5 (60.0-200.0); Anion Gap 9.2 mmol/L (4.00-12.00); BUN/Creat Ratio 17.14 Ratio (12.00-20.00); Calcium 9.3 mg/dL (8.7-10.3); Carbon Dioxide 24.8 mmol/L (21.6-31.8); Non-African American GFR(CKD) 56.6 (60.0-200.0); Potassium 4.2 mmol/L (3.5-5.5)
[2020-03-31 20:36] LABS: INR 0.92 (0.90-1.11)
== END | disposition home or self-care (01) ==
LOC: LABWHC1 11:43
PROVIDERS: ATTEND Internal Medicine Interventional Cardiology
DX: I25.119 Atherosclerotic heart disease of native coronary artery with unspecified angina pectoris (principal); I25.82 Chronic total occlusion of coronary artery
CPT/HCPCS: 36415; 80048; 83735; 85025; 85610

== ENCOUNTER 2020-12-08 15:54 | Inpatient (IN) | payer OTHER ==
[2020-12-08] MEDS ORDERED: ACETAMINOPHEN TAB 325 MG TAB PO STA (16:15)
[2020-12-08] MEDS ORDERED: DEXAMETHASONE SOD PHOSPHATE 10 MG/ML 1 ML VIAL IV STA (16:17)
--- NOTE | 2020-12-08 17:00 | XR ---
EXAMINATION TYPE: XR chest 1V portable DATE OF EXAM: 12/08/2020 CLINICAL HISTORY: Suspected COVID-19 pneumonia. Shortness of breath. TECHNIQUE: Frontal view of the chest. COMPARISON: 03/04/2020 FINDINGS: The cardiomediastinal silhouette is within normal limits for size. Pulmonary vasculature i s normal. There are patchy bibasilar airspace opacities. No pleural effusion. No pneumothorax seen. No acute displaced osseous fracture. IMPRESSION: Patchy bibasilar airspace opacities likely represent pneumonia.
[2020-12-08 17:55] LABS: Basophils % (A) 1 %; Eosinophils % (A) 0 %; HCT 35.4 % (39.0-53.0); HGB 12.5 gm/dL (13.0-17.5); Lymphocytes # (A) 0.7 k/uL (1.0-4.8); Lymphocytes % (A) 10 %; MCH 30.6 pg (25.0-35.0); MCHC 35.3 g/dL (31.0-37.0); MCV 86.6 fL (80.0-100.0); Mean Platelet Volume 8.5; Monocytes # (A) 0.2 k/uL (0-1.0); Monocytes % (A) 4 %; Neutrophils # (A) 5.5 k/uL (1.3-7.7); Neutrophils % (A) 85 %; Platelet Count 269 k/uL (150-450); RBC 4.08 m/uL (4.30-5.90); WBC 6.5 k/uL (3.8-10.6)
[2020-12-08 18:11] LABS: Albumin 3.7 g/dL (3.5-5.0); C Reactive Protein 5.8 mg/dL (<1.0); Calcium 8.4 mg/dL (8.4-10.2); Magnesium 2.3 mg/dL (1.6-2.3); Potassium 4.3 mmol/L (3.5-5.1); Total Bilirubin 0.3 mg/dL (0.2-1.3)
[2020-12-08 18:12] LABS: Partial Thromboplastin Time 27.5 sec (22.0-30.0); Prothrombin Time 10.3 sec (9.0-12.0)
[2020-12-08] MEDS ORDERED: NALOXONE 0.4 MG/ML 1 ML VIAL IV PRN (18:24)
[2020-12-08] MEDS ORDERED: ONDANSETRON 4 MG/2 ML VIAL IVP PRN (18:24)
[2020-12-08] MEDS: ALBUTEROL HFA INHALER INHALATION PRN (18:36)
[2020-12-08] MEDS ORDERED: REMDESIVIR 200 MG in SODIUM CHLORIDE 0.9% 250 ML IVPB ONE (20:00)
[2020-12-08] MEDS: ATORVASTATIN 10 MG TAB PO SCH (20:15)
--- NOTE | 2020-12-08 20:21 | ED ---
General Adult HPI - General Chief complaint: Shortness of Breath Stated complaint: COVID + Time Seen by Provider: 12/08/20 15:59 Source: patient, EMS, RN notes reviewed, old records reviewed Mode of arrival: EMS Limitations: no limitations - History of Present Illness Initial comments: I evaluated the patient and he was placed in a room. Patient is a 55-year-old male with past medical history remarkable for hypertension,, cardiac stents, prior tobacco use who presents emergency Department with COVID-19. Patient was seen at an outpatient urgent care and tested positive for COVID-19. At that urgent care, patient was saturating in the low 70% on room air. They placed him on oxygen and transported him to the emergency department via ambulance. Patient states that symptoms began approximate 6 days ago. States over the last 2-3 days he has been feeling worse. He does live with family members who do not have symptoms like he does. He endorses a mild cough that is nonproductive. Endorses intermittent chest discomfort but currently none. Denies any abdominal pain, nausea, vomiting, diarrhea. Denies any history of blood clots. Denies a ny generalized weakness but does endorse some fatigue. Denies any numbness or other neurological deficits. His no visual changes. He is not vaccinated for COVID-19 and previously did not test positive. His no other acute complaints at this time. - Related Data Home Medications Medication Instructions Recorded Confirmed Citalopram Hydrobromide [CeleXA] 40 mg PO DAILY 03/04/20 12/08/20 buPROPion [Wellbutrin] 75 mg PO DAILY 03/04/20 12/08/20 Aspirin EC [Ecotrin Low Dose] 81 mg PO DAILY 12/08/20 12/08/20 Atorvastatin [Lipitor] 40 mg PO HS 12/08/20 12/08/20 Clopidogrel [Plavix] 75 mg PO DAILY 12/08/20 12/08/20 Isosorbide Mononitrate ER [Imdur] 30 mg PO DAILY 12/08/20 12/08/20 Magnesium Oxide 200 mg PO BID 12/08/20 12/08/20 Metoprolol Succinate [Toprol XL] 25 mg PO DAILY 12/08/20 12/08/20 Multivitamins, Thera [Multivitamin 1 tab PO DAILY 12/08/20 12/08/20 (formulary)] Pantoprazole Sodium [Protonix] 20 mg PO DAILY 12/08/20 12/08/20 hydrALAZINE HCL [Apresoline] 25 mg PO TID 12/08/20 12/08/20 Allergies Allergy/AdvReac Type Severity Reaction Status Date / Time No Known Allergies Allergy Verified 12/08/20 18:56 Review of Systems ROS Statement: Those systems with pertinent positive or pertinent negative responses have been documented in the HPI. Review of Systems: CONST: Endorses fever EYES: Denies blurry vision ENT: Denies nasal congestion C/V: Denies Chest pain RESP: Shortness of breath GI: Denies abdominal pain : Denies dysuria SKIN: Denies rash. MSK: Denies joint pain. NEURO: Denies headache ROS Other: All systems not noted in ROS Statement are negative. Past Medical History Past Medical History: Hyperlipidemia, Hypertension History of Any Multi-Drug Resistant Organisms: None Reported Additional Past Surgical History / Comment(s): cyst removal neck. Past Psychological History: No Psychological Hx Reported Smoking Status: Current every day smoker Past Alcohol Use History: Occasional Past Drug Use History: None Reported General Exam - General Exam Comments Initial Comments: General: Appears dyspneic in mild respiratory distress. HEAD: Normal with no signs of head trauma. EYES: PERRLA, EOMI, conjunctiva normal, no discharge. ENT: Hearing grossly intact, normal oropharynx. RESPIRATORY: Coarse breath sounds bilaterally. No obvious wheezes appreciated. Patient is mildly tachypnea. He is hypoxic on room air but saturating within normal limits on 4-5 L nasal cannula. C/V: Regular rate and rhythm. S1 and S2 auscultated, no edema, peripheral pulses 2+ and intact throughout ABD: Abd is soft, nontender, nondistended EXT: Normal range of motion, no obvious deformity SKIN: No rashes or lesions observed on exposed skin.. Patient is febrile NEURO: Alert and oriented x 4. Cranial nerves II-XII intact. No focal sensory or strength deficits. Limitations: no limitations Course Vital Signs 12/08/20 12/08/20 12/08/20 16:00 19:00 20:00 Temperature 100.1 F H 98.8 F Pulse Rate 65 89 74 Respiratory 22 18 26 H Rate Blood Pressure 109/68 107/59 106/83 O2 Sat by Pulse 72 L 91 L 94 L Oximetry Medical Decision Making - Medical Decision Making Based on the patient's presentation and physical exam, I do believe that he is likely experiencing a significant COVID-19 infection. He is hypoxic and oxygen dependent. We will obtain COVID-19 laboratory studies including d-dimer, troponin, EKG, chest x-ray. Patient will be started on albuterol, Decadron, optional in the department. His hypoxia improves on nasal cannula oxygen. Isolation precautions were placed. Patient's connected to continuous cardiac monitoring. He was in agreement this plan. EKG showed chronic changes and no signs of acute ischemia. Chest x-ray revealed by lateral infiltrate suggestive of COVID-19 infection. Laboratory studies were remarkable for a normocytic anemia with hemoglobin 12.5, elevated d-dimer of 0.85, an AK I with a creatinine of 1.47 and V1 of 24, and elevated LDH of 1000, an elevated CRP of 5.8, and an indeterminate troponin of 0.021. Patient is feeling somewhat improved at this time. I did discuss with him the results of his laboratory studies and explained that I would like to give him a bolus of normal saline and due to his elevated d-dimer rule out pulmonary was in. He was in agreement this plan. CTA of the chest was ordered to rule out PE. Results returned and revealed no signs of acute pulmonary embolism. There are groundglass opacities suggestive of COVID-19 pneumonia. Patient was therefore placed on Lovenox, DVT prophylaxis dose. At this time patient will be admitted to the hospital. I spoke with the admission team under [facility] [place] who accepted the patient under Dr. Collazo. I also consult at infectious disease Dr. Vargas. I called pharmacy and had the first dose of from does appear ordered for the patient and see does meet criter ia. Patient was therefore admitted and serous condition to telemetry bed. - Lab Data Result diagrams: 12/08/20 17:42 12/08/20 17:42 Lab Results 12/08/20 12/08/20 12/08/20 Range/Units 17:42 17:42 17:42 WBC 6.5 (3.8-10.6) k/uL RBC 4.08 L (4.30-5.90) m/uL Hgb 12.5 L (13.0-17.5) gm/dL Hct 35.4 L (39.0-53.0) % MCV 86.6 (80.0-100.0) fL MCH 30.6 (25.0-35.0) pg MCHC 35.3 (31.0-37.0) g/dL RDW 14.0 (11.5-15.5) % Plt Count 269 (150-450) k/uL MPV 8.5 Neutrophils % 85 % Lymphocytes % 10 % Monocytes % 4 % Eosinophils % 0 % Basophils % 1 % Neutrophils # 5.5 (1.3-7.7) k/uL Lymphocytes # 0.7 L (1.0-4.8) k/uL Monocytes # 0.2 (0-1.0) k/uL Eosinophils # 0.0 (0-0.7) k/uL Basophils # 0.0 (0-0.2) k/uL PT 10.3 (9.0-12.0) sec INR 1.0 (<1.2) APTT 27.5 (22.0-30.0) sec D-Dimer 0.85 H (<0.60) mg/L FEU Sodium 134 L (137-145) mmol/L Potassium 4.3 (3.5-5.1) mmol/L Chloride 99 (98-107) mmol/L Carbon Dioxide 22 (22-30) mmol/L Anion Gap 13 mmol/L BUN 24 H (9-20) mg/dL Creatinine 1.47 H (0.66-1.25) mg/dL Est GFR (CKD-EPI)AfAm 61 (>60 ml/min/1.73 sqM) Est GFR (CKD-EPI)NonAf 53 (>60 ml/min/1.73 sqM) Glucose 139 H (74-99) mg/dL Plasma Lactic Acid Chucky (0.7-2.0) mmol/L Calcium 8.4 (8.4-10.2) mg/dL Magnesium 2.3 (1.6-2.3) mg/dL Total Bilirubin 0.3 (0.2-1.3) mg/dL AST 50 (17-59) U/L ALT 26 (4-49) U/L Alkaline Phosphatase 87 (38-126) U/L Lactate Dehydrogenase 1005 H (313-618) U/L Troponin I (0.000-0.034) ng/mL C-Reactive Protein 5.8 H (<1.0) mg/dL NT-Pro-B Natriuret Pep pg/mL Total Protein 7.0 (6.3-8.2) g/dL Albumin 3.7 (3.5-5.0) g/dL 12/08/20 12/08/20 12/08/20 Range/Units 17:42 17:42 17:42 WBC (3.8-10.6) k/uL RBC (4.30-5.90) m/uL Hgb (13.0-17.5) gm/dL Hct (39.0-53.0) % MCV (80.0-100.0) fL MCH (25.0-35.0) pg MCHC (31.0-37.0) g/dL RDW (11.5-15.5) % Plt Count (150-450) k/uL MPV Neutrophils % % Lymphocytes % % Monocytes % % Eosinophils % % Basophils % % Neutrophils # (1.3-7.7) k/uL Lymphocytes # (1.0-4.8) k/uL Monocytes # (0-1.0) k/uL Eosinophils # (0-0.7) k/uL Basophils # (0-0.2) k/uL PT (9.0-12.0) sec INR (<1.2) APTT (22.0-30.0) sec D-Dimer (<0.60) mg/L FEU Sodium (137-145) mmol/L Potassium (3.5-5.1) mmol/L Chloride (98-107) mmol/L Carbon Dioxide (22-30) mmol/L Anion Gap mmol/L BUN (9-20) mg/dL Creatinine (0.66-1.25) mg/dL Est GFR (CKD-EPI)AfAm (>60 ml/min/1.73 sqM) Est GFR (CKD-EPI)NonAf (>60 ml/min/1.73 sqM) Glucose (74-99) mg/dL Plasma Lactic Acid Chucky 1.3 (0.7-2.0) mmol/L Calcium (8.4-10.2) mg/dL Magnesium (1.6-2.3) mg/dL Total Bilirubin (0.2-1.3) mg/dL AST (17-59) U/L ALT (4-49) U/L Alkaline Phosphatase (38-126) U/L Lactate Dehydrogenase (313-618) U/L Troponin I 0.021 (0.000-0.034) ng/mL C-Reactive Protein (<1.0) mg/dL NT-Pro-B Natriuret Pep 378 pg/mL Total Protein (6.3-8.2) g/dL Albumin (3.5-5.0) g/dL - EKG Data -: EKG Interpreted by Me EKG Comments: 12-lead Electrocardiogram Interpretation Note EKG was reviewed and interpreted by myself. 12-lead ECG performed at 1816 is interpreted by me as revealing [normal sinus rhythm] at a rate of 89 beats per minute. [place] is normal. OH interval is 180 ms, QRS duration is 90 ms, QTc is 452 ms.. There are mild T-wave inversions in the lateral precordial leads. No ST segment elevations or depressions present.. R wave progression across the precordium was satisfactory. By my interpretation this EKG is non-diagnostic for acute ischemia. T wave inversions/isoelectric T waves were seen on prior EKGs this is likely old. Disposition Clinical Impression: Pneumonia due to COVID-19 virus, Acute respiratory failure with hypoxia, Elevated d-dimer, CARLO (acute kidney injury) Disposition: ADMITTED IP TO THIS HOSP Condition: Serious
--- NOTE | 2020-12-08 20:42 | CT ---
EXAMINATION TYPE: CT chest angio for PE DATE OF EXAM: 12/08/2020 COMPARISON: Same day chest x-ray HISTORY: Low oxygen, elevated d-dimer. CT DLP: 387.5 mGycm Automated exposure control for dose reduction was used. CONTRAST: CT Chest for pulmonary embolism performed with with IV Contrast, patient injected with 80 mL of Isovu e 370. FINDINGS: LUNGS: Tracheobronchial tree is patent. There are moderate diffuse groundglass opacities of the bilat eral lungs with areas of peripheral and bandlike distribution, worse at the lung bases. There is no p leural effusion or pneumothorax. MEDIASTINUM: There is ectasia of the ascending thoracic aorta measuring up to 4.2 cm. There is no tho racic aortic dissection. There are no large pulmonary emboli. There is cardiomegaly. No pericardial e ffusion. No mediastinal or hilar lymphadenopathy. OTHER: Imaging of the upper abdomen demonstrates fatty liver. IMPRESSION: 1. No evidence of pulmonary embolism. 2. There is ectasia of the ascending thoracic aorta measuring 4.2 cm. No thoracic aortic dissection. 3. Cardiomegaly. 4. Moderate diffuse groundglass opacities characteristic of Covid 19 pneumonia. 5. Fatty liver.
[2020-12-08] MEDS ORDERED: SODIUM CHLORIDE 0.9% 1,000 ML IV STA (20:55)
[2020-12-08] MEDS: DEXAMETHASONE SOD PHOSPHATE 10 MG/ML 1 ML VIAL IV SCH (22:44)
[2020-12-08] MEDS: hydrALAZINE HCL 25 MG TAB PO SCH (22:45)
[2020-12-08] MEDS: ZINC SULFATE 220 MG CAP PO SCH (22:45)
[2020-12-08] MEDS: CHOLECALCIFEROL 25 MCG (1000 IU) TABLET PO SCH (22:45)
[2020-12-08] MEDS: ENOXAPARIN 40 MG/0.4 ML SYRINGE SQ SCH (22:45)
[2020-12-08] MEDS: ASCORBIC ACID 500 MG TAB PO SCH (22:47)
--- NOTE | 2020-12-09 07:33 | XR ---
EXAMINATION TYPE: XR chest 1V DATE OF EXAM: 12/09/2020 HISTORY: Shortness of breath. COMPARISON: 12/08/2020 TECHNIQUE: Single view of the chest is submitted. FINDINGS: Demonstrated are scattered senescent parenchymal change. Patchy basilar infiltrates persist without significant change. Continued follow-up advised. The heart is stable. Hilar and mediastinal structures are within normal limits. Degenerative changes are seen of the dorsal spine. IMPRESSION: 1. Patchy basilar infiltrates persist without significant change. Continued follow-up advised.
[2020-12-09] MEDS: LISINOPRIL-HCTZ 20-12.5 MG 1 EACH TAB PO SCH (08:53)
[2020-12-09] MEDS: ISOSORBIDE MONONITRATE ER 30 MG TAB.ER.24H PO SCH (08:53)
[2020-12-09] MEDS: DEXAMETHASONE SOD PHOSPHATE 10 MG/ML 1 ML VIAL IV SCH (08:53)
[2020-12-09] MEDS: hydrALAZINE HCL 25 MG TAB PO SCH ×3 (08:53→22:08)
[2020-12-09] MEDS: CLOPIDOGREL 75 MG TAB PO SCH (08:53)
[2020-12-09] MEDS: PANTOPRAZOLE 40 MG TABLET PO SCH (08:53)
[2020-12-09] MEDS: ASPIRIN 81 MG PO SCH (08:53)
[2020-12-09] MEDS: METOPROLOL SUCCINATE (ER) 25 MG TAB.ER.24H PO SCH (08:53)
[2020-12-09] MEDS: ALBUTEROL HFA INHALER INHALATION PRN (09:04)
--- NOTE | 2020-12-09 11:44 | P.HPIM ---
History of Present Illness This is a pleasant 55 years old male with past medical history of hypertension, hyperlipidemia. He follows up with the [place] clinic and presents with respiratory distress Patient states he has dyspnea and dry cough with no chest pain for the last 7 days. He hasn't been vaccinated against coronavirus. He denies any diarrhea or GI symptoms. No dysuria or urgency. He does not use oxygen at home. Smoking, alcohol or illicit drugs On admission he had a fever of 100.1, he is tachypneic at 22, hypoxic needing 6 L of oxygen to keep oxygen saturation at 94%. Blood pressure stable. No tachycardia. CBC showed leukopenia lymphopenia at 0.7. INR is 1.0. D-dimer is slightly elevated at 0.85. Creatinine is mildly elevated at 1.4 which is at baseline of 1.4-1.8 and sometimes up to 2.0. Rest of the BMP, liver enzymes are unremarkable. Dehydrogenase is increased 1005, C-reactive protein is high at 5.8. CTA of the chest showing no PE. Ectasia of the ascending thoracic aorta at 4.2 cm. Cardiomegaly with moderate diffuse groundglass opacity characteristic of the Covid 19 pneumonia EKG showing normal sinus rhythm at [address]-T changes and QTC of 452. He is on aspirin and Plavix at home, he was started on dexamethasone 6 mg twice a day, Lovenox 40 mg, REM x1, vitamin C, vitamin D and zinc. Infectious disease and pulmonary team were consulted Past Medical History Past Medical History: Hyperlipidemia, Hypertension History of Any Multi-Drug Resistant Organisms: None Reported Additional Past Surgical History / Comment(s): cyst removal neck. Past Psychological History: No Psychological Hx Reported Smoking Status: Current every day smoker Past Alcohol Use History: Occasional Past Drug Use History: None Reported Medications and Allergies Home Medications Medication Instructions Recorded Confirmed Type Citalopram Hydrobromide [CeleXA] 40 mg PO DAILY 03/04/20 12/08/20 History buPROPion [Wellbutrin] 75 mg PO DAILY 03/04/20 12/08/20 History Aspirin EC [Ecotrin Low Dose] 81 mg PO DAILY 12/08/20 12/08/20 History Atorvastatin [Lipitor] 40 mg PO HS 12/08/20 12/08/20 History Clopidogrel [Plavix] 75 mg PO DAILY 12/08/20 12/08/20 History Isosorbide Mononitrate ER [Imdur] 30 mg PO DAILY 12/08/20 12/08/20 History Magnesium Oxide 200 mg PO BID 12/08/20 12/08/20 History Metoprolol Succinate [Toprol XL] 25 mg PO DAILY 12/08/20 12/08/20 History Multivitamins, Thera [Multivitamin 1 tab PO DAILY 12/08/20 12/08/20 History (formulary)] Pantoprazole Sodium [Protonix] 20 mg PO DAILY 12/08/20 12/08/20 History hydrALAZINE HCL [Apresoline] 25 mg PO TID 12/08/20 12/08/20 History Allergies Allergy/AdvReac Type Severity Reaction Status Date / Time No Known Allergies Allergy Verified 12/08/20 18:56 Physical Exam Vitals: Vital Signs Temp Pulse Pulse Resp BP BP Pulse Ox 12/09/20 05:57 98.1 F 68 18 144/85 94 L 12/09/20 02:00 97.5 F L 65 42 H 111/62 95 12/08/20 23:54 98.1 F 67 20 120/79 97 12/08/20 20:00 98.8 F 74 26 H 106/83 94 L 12/08/20 19:00 89 18 107/59 91 L 12/08/20 16:00 100.1 F H 65 22 109/68 72 L Intake and Output 12/08/20 12/08/20 12/09/20 14:59 22:59 06:59 Other: # Voids 1 Weight 90.718 kg Results CBC & Chem 7: 12/08/20 17:42 12/08/20 17:42 Labs: Abnormal Lab Results - Last 24 Hours (Table) 12/08/20 12/08/20 12/08/20 Range/Units 17:42 17:42 17:42 RBC 4.08 L (4.30-5.90) m/uL Hgb 12.5 L (13.0-17.5) gm/dL Hct 35.4 L (39.0-53.0) % Lymphocytes # 0.7 L (1.0-4.8) k/uL D-Dimer 0.85 H (<0.60) mg/L FEU Sodium 134 L (137-145) mmol/L BUN 24 H (9-20) mg/dL Creatinine 1.47 H (0.66-1.25) mg/dL Glucose 139 H (74-99) mg/dL Lactate Dehydrogenase 1005 H (313-618) U/L C-Reactive Protein 5.8 H (<1.0) mg/dL Procalcitonin (0.02-0.09) ng/mL 12/08/20 Range/Units 17:42 RBC (4.30-5.90) m/uL Hgb (13.0-17.5) gm/dL Hct (39.0-53.0) % Lymphocytes # (1.0-4.8) k/uL D-Dimer (<0.60) mg/L FEU Sodium (137-145) mmol/L BUN (9-20) mg/dL Creatinine (0.66-1.25) mg/dL Glucose (74-99) mg/dL Lactate Dehydrogenase (313-618) U/L C-Reactive Protein (<1.0) mg/dL Procalcitonin 0.23 H (0.02-0.09) ng/mL Thrombosis Risk Factor Assmnt - Choose All That Apply Each Factor Represents 1 point: Obesity (BMI >25) Other Risk Factors: No Other congenital or acquired thrombophilia - If yes, enter type in comment: No Thrombosis Risk Factor Assessment Total Risk Factor Score: 1 Thrombosis Risk Factor Assessment Level: Low Risk Assessment and Plan Assessment: Acute bilateral Covid pneumonia Hypoxic respiratory failure Increased inflammatory markers Chronic kidney disease stage III Hypertension Hyperlipidemia This is a pleasant 55 years old male who presents with cough and pneumonia and hypoxia Continue with her vitamins cocktail Continue with dexamethasone and Lovenox ID and pulmonary team consult Labs and medication were reviewed.. Continue same treatment. Continue with symptomatic treatment. Resume home medication. Monitor lytes and vitals. DVT and GI prophylaxis. Further recommendationsas per clinical course of the patient DVT prophylaxis: Subcutaneous Lovenox GI Prophylaxis: Pepcid Prognosis is guarded Plan: This is a pleasant 55 years old male who presents with cough and pneumonia. Continue With dexamethasone Continue with vitamin C, vitamin D and zinc Pulmonary and infectious disease team consult Labs and medication were reviewed.. Continue same treatment. Continue with sy mptomatic treatment. Resume home medication. Monitor lytes and vitals. DVT and GI prophylaxis. Further recommendationsas per clinical course of the patient DVT prophylaxis: Subcutaneous Lovenox GI Prophylaxis: Pepcid Prognosis is guarded
--- NOTE | 2020-12-09 13:45 | P.CNPUL ---
History of Present Illness Consult date: 12/09/20 Requesting physician: Bruce Weiner Reason for consult: pneumonia Chief complaint: Dry cough and shortness of breath. History of present illness: This is a 55-year-old white male with history of coronary artery disease, previous multiple stents, patient presented to the hospital with 1 week history of symptoms of shortness of breath, dry cough, low-grade fever, no chills. Patient was noted to have abnormal chest x-ray with bilateral interstitial infiltrates. Patient was noted to have a low-grade fever with a temp of 100.1. He was tachypneic. And hypoxic requiring at least 6 L of nasal cannula to maintain a sat of 94%. Patient was also noted to have leukopenia and lymphopenia with slightly elevated d-dimer of 0.85. Patient tested positive for COVID-19 infection. Hence he was admitted, and this consult was initiated. His creatinine was slightly elevated at 1.4, LDH was 1005, C-reactive protein at 5.8. CT angiogram of the chest showed no evidence of pulmonary embolism. It d id show moderate diffuse groundglass opacities consistent with COVID-19 pneumonia diagnosis. Patient is normally on Plavix and aspirin at home for his underlying coronary artery disease. Patient was placed on Decadron, Lovenox, and on REMDESIVIR Review of Systems CONST: Low-grade fever, generalized aches and pains. EYES: Negative ENT: Denied any loss of sensation of taste or smell. C/V: Denies chest pain or orthopnea PND. RESP: I cough and shortness of breath. GI: Denies nausea vomiting abdominal pain melena or hematemesis. : Denies dysuria hematuria, frequency or urgency. SKIN: Denies rash. MSK: Vague aches and pains. NEURO: Denies headache or blurred vision or syncope. Past Medical History Past Medical History: Hyperlipidemia, Hypertension History of Any Multi-Drug Resistant Organisms: None Reported Additional Past Surgical History / Comment(s): cyst removal neck. Past Psychological History: No Psychological Hx Reported Smoking Status: Current every day smoker Past Alcohol Use History: Occasional Past Drug Use History: None Reported Medications and Allergies Home Medications Medication Instructions Recorded Confirmed Type Citalopram Hydrobromide [CeleXA] 40 mg PO DAILY 03/04/20 12/08/20 History buPROPion [Wellbutrin] 75 mg PO DAILY 03/04/20 12/08/20 History Aspirin EC [Ecotrin Low Dose] 81 mg PO DAILY 12/08/20 12/08/20 History Atorvastatin [Lipitor] 40 mg PO HS 12/08/20 12/08/20 History Clopidogrel [Plavix] 75 mg PO DAILY 12/08/20 12/08/20 History Isosorbide Mononitrate ER [Imdur] 30 mg PO DAILY 12/08/20 12/08/20 History Magnesium Oxide 200 mg PO BID 12/08/20 12/08/20 History Metoprolol Succinate [Toprol XL] 25 mg PO DAILY 12/08/20 12/08/20 History Multivitamins, Thera [Multivitamin 1 tab PO DAILY 12/08/20 12/08/20 History (formulary)] Pantoprazole Sodium [Protonix] 20 mg PO DAILY 12/08/20 12/08/20 History hydrALAZINE HCL [Apresoline] 25 mg PO TID 12/08/20 12/08/20 History Allergies Allergy/AdvReac Type Severity Reaction Status Date / Time No Known Allergies Allergy Verified 12/08/20 18:56 Physical Exam Vitals: Vital Signs Temp Pulse Pulse Resp BP BP Pulse Ox 12/09/20 10:09 98.5 F 72 18 135/70 91 L 12/09/20 05:57 98.1 F 68 18 144/85 94 L 12/09/20 02:00 97.5 F L 65 42 H 111/62 95 12/08/20 23:54 98.1 F 67 20 120/79 97 12/08/20 20:00 98.8 F 74 26 H 106/83 94 L 12/08/20 19:00 89 18 107/59 91 L 12/08/20 16:00 100.1 F H 65 22 109/68 72 L Intake and Output 12/08/20 12/09/20 12/09/20 22:59 06:59 14:59 Other: Voiding Method Toilet # Voids 1 Weight 90.718 kg Physical Exam: Revealed a 55-year-old white male in no distress. Head: Atraumatic, normocephalic. HEENT: PERRLA, EOMI, anicteric. [Neck is supple.] [No neck masses.] [No thyrome luda.] [No JVD.] Chest: [No tickle chest expansion, crackles at the bases no rhonchi and no wheezes..] Cardiac Exam: [Normal S1 and S2, no S3 gallop, no murmur.] Abdomen: Obese, [Soft, nontender, no megaly, no rebound, no guarding, normal bowel sounds.] Extremities:, [No clubbing, no edema, no cyanosis.] Good pulses bilaterally. Skin: No rashes. Psychiatric: Normal mood affect and normal mental status examination. Neurological Exam: Alert and oriented 3 no gross focal neurologic deficits. Results - Laboratory Findings CBC and BMP: 12/08/20 17:42 12/08/20 17:42 PT/INR, D-dimer PT 10.3 sec (9.0-12.0) 12/08/20 17:42 INR 1.0 (<1.2) 12/08/20 17:42 D-Dimer 0.85 mg/L FEU (<0.60) H 12/08/20 17:42 Abnormal lab findings: Abnormal Labs 12/08/20 12/08/20 12/08/20 17:42 17:42 17:42 RBC 4.08 L Hgb 12.5 L Hct 35.4 L Lymphocytes # 0.7 L D-Dimer 0.85 H Sodium 134 L BUN 24 H Creatinine 1.47 H Glucose 139 H Lactate Dehydrogenase 1005 H C-Reactive Protein 5.8 H Procalcitonin 12/08/20 17:42 RBC Hgb Hct Lymphocytes # D-Dimer Sodium BUN Creatinine Glucose Lactate Dehydrogenase C-Reactive Protein Procalcitonin 0.23 H - Diagnostic Findings Chest x-ray: image reviewed (As noted in HPI.) CT scan - chest: image reviewed Assessment and Plan Assessment: Impression: Acute hypoxic respiratory failure secondary to acute COVID-19 pneumonia. History of underlying coronary artery disease and previous stents placement. Elevated inflammatory markers secondary to COVID-19 infection. Lymphopenia secondary to acute COVID-19 infection. Elevated d-dimer secondary to COVID-19 infection. Chronic kidney disease with creatinine of 1.47. Recommendation: Continue present supportive care measures. Continue Lovenox. Continue Decadron. Continue COVID-19 cocktail. Patient seems to be within the window for remdesivir, hence treatment was st arted. Continue oxygen and titrate accordingly. Continue respiratory isolation./Droplet isolation. We will continue to follow. Prognosis is relatively guarded. Time with Patient: Greater than 30
[2020-12-09 14:08] LABS: Ferritin 1705.5 ng/mL (22.0-322.0)
[2020-12-09] MEDS: CHOLECALCIFEROL 25 MCG (1000 IU) TABLET PO SCH (22:08)
[2020-12-09] MEDS: ZINC SULFATE 220 MG CAP PO SCH (22:08)
[2020-12-09] MEDS: ASCORBIC ACID 500 MG TAB PO SCH (22:08)
[2020-12-09] MEDS: ATORVASTATIN 10 MG TAB PO SCH (22:08)
[2020-12-09] MEDS: ENOXAPARIN 40 MG/0.4 ML SYRINGE SQ SCH (22:08)
[2020-12-09] MEDS: REMDESIVIR 100 MG in SODIUM CHLORIDE 0.9% 250 ML IVPB SCH (22:08)
[2020-12-10] MEDS: hydrALAZINE HCL 25 MG TAB PO SCH ×3 (08:55→22:04)
[2020-12-10] MEDS: DEXAMETHASONE SOD PHOSPHATE 10 MG/ML 1 ML VIAL IV SCH (08:55)
[2020-12-10] MEDS: ISOSORBIDE MONONITRATE ER 30 MG TAB.ER.24H PO SCH (08:55)
[2020-12-10] MEDS: ASPIRIN 81 MG PO SCH (08:55)
[2020-12-10] MEDS: CLOPIDOGREL 75 MG TAB PO SCH (08:56)
[2020-12-10] MEDS: LISINOPRIL-HCTZ 20-12.5 MG 1 EACH TAB PO SCH (08:56)
[2020-12-10] MEDS: PANTOPRAZOLE 40 MG TABLET PO SCH (08:56)
[2020-12-10] MEDS: ACETAMINOPHEN TAB 325 MG TAB PO PRN (08:56)
[2020-12-10] MEDS: METOPROLOL SUCCINATE (ER) 25 MG TAB.ER.24H PO SCH (08:56)
[2020-12-10 09:19] LABS: African American GFR (CKD) 82 (>60 ml/min/1.73 sqM); Anion Gap 7 mmol/L; Blood Urea Nitrogen 28 mg/dL (9-20); C Reactive Protein 3.3 mg/dL (<1.0); Carbon Dioxide 25 mmol/L (22-30); Chloride 107 mmol/L (98-107); Glucose 108 mg/dL (74-99); LDH 872 U/L (313-618); Non-African American GFR(CKD) 71 (>60 ml/min/1.73 sqM); Sodium 139 mmol/L (137-145)
--- NOTE | 2020-12-10 09:30 | P.CONS ---
History of Present Illness - Reason for Consult Consult date: 12/09/20 covid 19 pneumonia Requesting physician: Bruce E Sheet - Chief Complaint shortness of breath and low oxygen x few days - History of Present Illness History of present illness : Patient is a 55-year male presenting to the ER at [facility] last night for evaluation of increasing shortness of breath patient symptom has been going on for about a week however over the last 2 to 3 days the patient has been having increasing shortness of breath on minimal exertion rated have a cough which is moderate intensity but not been up any sputum intermittent chest discomfort patient denies having any nausea vomiting abdominal pain or any diarrhea patient was evaluated in the outpatient setting in the urgent care with the patient noticed to be hypoxic w ith O2 sat of 70% on room air he did have positive Covid test patient was subsequently sent to the [facility] ER for further evaluation on arrival to the ER patient did have a fever of 100.1 F patient was hypoxic 72% on room air is currently 98% on 11 L high flow oxygen patient did have a normal white count with lymphopenia D-dimer was mildly elevated BUN and creatinine were mildly elevated liver enzymes are normal LDH is elevated as well as a CRP patient did have a CT angiogram of the chest no evidence of any PE cardiomegaly moderate diffuse groundglass opacity characteristics of COVID-19 patient was admitted to the hospital has been started on remdesivir infectious disease was consulted for further management Review of system: CONSTITUTIONAL: Positive for weakness along with the fever. EYES: No complaint. ENT: No complaint. RESPIRATORY: As per history of present illness. CARDIOVASCULAR: No complaint. GENITOURINARY: No complaint. GASTROINTESTINAL: No complaint. MUSCULOSKELETAL: No complaint. INTEGUMENTARY: No complaint. PSYCHOLOGIC: No complaint. ENDOCRINE: No complaint. NEUROLOGIC: No complaint. Past medical history : Reviewed, documented below Past surgical history : Reviewed, documented below Social history: Reviewed, documented below Medications: Reviewed, as documented below EXAMINATION: Vital sigans= Reviewed and documented below GENERAL DESCRIPTION: Middle-aged male lying in bed, no distress. No tachypnea or accessory muscle of respiration use. HEENT: Shows Pallor , no scleral icterus. Oral mucous membrane is dry. NECK: Trachea central, no thyromegaly. LUNGS: Unlabored breathing. Coarse breath sounds bilaterally. No wheeze or crackle. HEART: S1, S2, regular rate and rhythm. ABDOMEN: Soft, no tenderness , guarding or rigidity EXTREMITIES: No edema of feet. SKIN: No rash, no masses palpable. NEUROLOGICAL: The patient is awake, alert, oriented x3, mood and affect normal. LABS AND RADIOLOGY: Reviewed results see below Assessment : Patient is a 55-year-old male presenting to the hospital with acute respiratory failure in this patient who did have significant hypoxemia did have evidence of bilateral groundglass opacity secondary to COVID- 19 infection patient was in the hospital within 6 days of symptom onset and was considered to be within therapeutic window for remdesivir per [facility] policy, currently with no evidence of any secondary bacterial pneumonia Plan: 1-remdesivir 5-day course 2-dexamethasone Lovenox , ascorbic acid and zinc 3-droplet isolation and respiratory support 4-no need for systemic antibiotic therapy We will follow on clinical condition and cultures to further adjust medication if needed Thank you for this consultation we will follow the patient along with you Past Medical History Past Medical History: Hyperlipidemia, Hypertension History of Any Multi-Drug Resistant Organisms: None Reported Additional Past Surgical History / Comment(s): cyst removal neck. Past Psychological History: No Psychological Hx Reported Smoking Status: Current every day smoker Past Alcohol Use History: Occasional Past Drug Use History: None Reported Medications and Allergies Home Medications Medication Instructions Recorded Confirmed Type Citalopram Hydrobromide [CeleXA] 40 mg PO DAILY 03/04/20 12/08/20 History buPROPion [Wellbutrin] 75 mg PO DAILY 03/04/20 12/08/20 History Aspirin EC [Ecotrin Low Dose] 81 mg PO DAILY 12/08/20 12/08/20 History Atorvastatin [Lipitor] 40 mg PO HS 12/08/20 12/08/20 History Clopidogrel [Plavix] 75 mg PO DAILY 12/08/20 12/08/20 History Isosorbide Mononitrate ER [Imdur] 30 mg PO DAILY 12/08/20 12/08/20 History Magnesium Oxide 200 mg PO BID 12/08/20 12/08/20 History Metoprolol Succinate [Toprol XL] 25 mg PO DAILY 12/08/20 12/08/20 History Multivitamins, Thera [Multivitamin 1 tab PO DAILY 12/08/20 12/08/20 History (formulary)] Pantoprazole Sodium [Protonix] 20 mg PO DAILY 12/08/20 12/08/20 History hydrALAZINE HCL [Apresoline] 25 mg PO TID 12/08/20 12/08/20 History Allergies Allergy/AdvReac Type Severity Reaction Status Date / Time No Known Allergies Allergy Verified 12/08/20 18:56 Physical Exam Vitals: Vital Signs Temp Pulse Pulse Resp BP BP Pulse Ox 12/09/20 14:00 98.9 F 73 18 101/57 85 L 12/09/20 10:09 98.5 F 72 18 135/70 91 L 12/09/20 05:57 98.1 F 68 18 144/85 94 L 12/09/20 02:00 97.5 F L 65 42 H 111/62 95 12/08/20 23:54 98.1 F 67 20 120/79 97 12/08/20 20:00 98.8 F 74 26 H 106/83 94 L 12/08/20 19:00 89 18 107/59 91 L 12/08/20 16:00 100.1 F H 65 22 109/68 72 L Intake and Output 12/09/20 12/09/20 12/09/20 06:59 14:59 22:59 Other: Voiding Method Toilet # Voids 1 Results CBC & Chem 7: 12/08/20 17:42 12/10/20 08:41 Labs: Abnormal Lab Results - Last 24 Hours (Table) 12/08/20 12/08/20 12/08/20 Range/Units 17:42 17:42 17:42 RBC 4.08 L (4.30-5.90) m/uL Hgb 12.5 L (13.0-17.5) gm/dL Hct 35.4 L (39.0-53.0) % Lymphocytes # 0.7 L (1.0-4.8) k/uL D-Dimer 0.85 H (<0.60) mg/L FEU Sodium 134 L (137-145) mmol/L BUN 24 H (9-20) mg/dL Creatinine 1.47 H (0.66-1.25) mg/dL Glucose 139 H (74-99) mg/dL Ferritin 1705.5 H (22.0-322.0) ng/mL Lactate Dehydrogenase 1005 H (313-618) U/L C-Reactive Protein 5.8 H (<1.0) mg/dL Procalcitonin (0.02-0.09) ng/mL 12/08/20 Range/Units 17:42 RBC (4.30-5.90) m/uL Hgb (13.0-17.5) gm/dL Hct (39.0-53.0) % Lymphocytes # (1.0-4.8) k/uL D-Dimer (<0.60) mg/L FEU Sodium (137-145) mmol/L BUN (9-20) mg/dL Creatinine (0.66-1.25) mg/dL Glucose (74-99) mg/dL Ferritin (22.0-322.0) ng/mL Lactate Dehydrogenase (313-618) U/L C-Reactive Protein (<1.0) mg/dL Procalcitonin 0.23 H (0.02-0.09) ng/mL
[2020-12-10] MEDS: ALBUTEROL HFA INHALER INHALATION PRN ×3 (12:10→19:56)
--- NOTE | 2020-12-10 12:34 | P.PN ---
Subjective This is a pleasant 55 years old male with past medical history of hypertension, hyperlipidemia. He follows up with the [place] clinic and presents with respiratory distress Patient states he has dyspnea and dry cough with no chest pain for the last 7 d ays. He hasn't been vaccinated against coronavirus. He denies any diarrhea or GI symptoms. No dysuria or urgency. He does not use oxygen at home. Smoking, alcohol or illicit drugs On admission he had a fever of 100.1, he is tachypneic at 22, hypoxic needing 6 L of oxygen to keep oxygen saturation at 94%. Blood pressure stable. No tachycardia. CBC showed leukopenia lymphopenia at 0.7. INR is 1.0. D-dimer is slightly elevated at 0.85. Creatinine is mildly elevated at 1.4 which is at baseline of 1.4-1.8 and sometimes up to 2.0. Rest of the BMP, liver enzymes are unremarkable. Dehydrogenase is increased 1005, C-reactive protein is high at 5.8. CTA of the chest showing no PE. Ectasia of the ascending thoracic aorta at 4.2 cm. Cardiomegaly with moderate diffuse groundglass opacity characteristic of the Covid 19 pneumonia EKG showing normal sinus rhythm at [address]-T changes and QTC of 452. He is on aspirin and Plavix at home, he was started on dexamethasone 6 mg twice a day, Lovenox 40 mg, REM x1, vitamin C, vitamin D and zinc. Infectious disease and pulmonary team were consulted 12/10/2020 Patient with bilateral Covid pneumonia and hypoxic respiratory failure. His oxygen requirements went up from yesterday at 6 to today at 10 L/m. Other Vitas looks stable. D-dimer is actually slightly less 0.8 down to 0.6. LDH is also less at 872 and C-reactive protein down to 3.3. He remains on dexamethasone, multiple vitamin and remdesivir to 12/12 We will repeat chest x-ray tomorrow morning Objective - Vital Signs Vital signs: Vital Signs Temp 98.0 F 12/10/20 10:17 Pulse 67 12/10/20 10:17 Resp 17 12/10/20 10:17 BP 115/63 12/10/20 10:17 Pulse Ox 93 L 12/10/20 10:17 Intake & Output 12/09/20 12/10/20 12/10/20 18:59 06:59 18:59 Other: Voiding Method Toilet Toilet # Voids 2 - Exam GENERAL: The patient is alert and oriented x3, not in any acute distress. Well developed, well nourished. HEENT: Pupils are round and equally reacting to light. EOMI. No scleral icterus. No conjunctival pallor. Normocephalic, atraumatic. No pharyngeal erythema. No thyromegaly. CARDIOVASCULAR: S1 and S2 present. No murmurs, rubs, or gallops. -PULMONARY: Chest is clear to auscultation, no wheezing or crackles. Bilateral crepitation ABDOMEN: Soft, nontender, nondistended, normoactive bowel sounds. No palpable organomegaly. MUSCULOSKELETAL: No joint swelling or deformity. EXTREMITIES: No cyanosis, clubbing, or pedal edema. NEUROLOGICAL: Gross neurological examination did not reveal any focal deficits. SKIN: No rashes. no petechiae. - Labs CBC & Chem 7: 12/08/20 17:42 12/10/20 08:41 Labs: Abnormal Lab Results - Last 24 Hours (Table) 12/08/20 12/10/20 12/10/20 Range/Units 17:42 08:41 08:41 D-Dimer 0.62 H (<0.60) mg/L FEU BUN 28 H (9-20) mg/dL Glucose 108 H (74-99) mg/dL Ferritin 1705.5 H (22.0-322.0) ng/mL Lactate Dehydrogenase 872 H (313-618) U/L C-Reactive Protein 3.3 H (<1.0) mg/dL Microbiology - Last 24 Hours (Table) 12/08/20 17:42 Blood Culture - Preliminary Blood No Growth after 24 hours 12/08/20 17:42 Blood Culture - Preliminary Blood No Growth after 24 hours Assessment and Plan Assessment: Acute bilateral Covid pneumonia Hypoxic respiratory failure Increased inflammatory markers Chronic kidney disease stage III Hypertension Hyperlipidemia This is a pleasant 55 years old male who presents with cough and pneumonia and hypoxia Continue with her vitamins cocktail Continue with dexamethasone and Lovenox ID and pulmonary team consult Labs and medication were reviewed.. Continue same treatment. Continue with symptomatic treatment. Resume home medication. Monitor lytes and vitals. DVT and GI prophylaxis. Further recommendationsas per clinical course of the patient DVT prophylaxis: Subcutaneous Lovenox GI Prophylaxis: Pepcid Prognosis is guarded Plan: This is a pleasant 55 years old male who presents with cough and pneumonia. Continue With dexamethasone Continue with vitamin C, vitamin D and zinc Pulmonary and infectious disease team consult Labs and medication were reviewed.. Continue same treatment. Continue with symptomatic treatment. Resume home medication. Monitor lytes and vitals. DVT and GI prophylaxis. Further recommendationsas per clinical course of the patient DVT prophylaxis: Subcutaneous Lovenox GI Prophylaxis: Pepcid Prognosis is guarded
--- NOTE | 2020-12-10 13:06 | P.PN ---
Subjective Progress Note Date: 12/10/20 Principal diagnosis: Shortness of breath, COVID-19 pneumonia On today's evaluation on 12/10/2020 patient seen in follow-up on medical surgical floor. Is currently on 10 L of oxygen, pulse ox is 93%, today is day 3 of Remdesivir, he continues on Decadron 6 mg daily, he appears to be in no acute distress, he does have cough, nonproductive. No complaint of chest discomfort. No fever overnight. 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 Today's labs have been reviewed d-dimer 0.62, electrolytes are within normal limits, renal profile is improved on today's labs, with BUN of 28 and creatinine of 1.16. He's tolerating oral intake, no nausea vomiting or diarrhea, his appetite is fair Objective - Vital Signs Vital signs: Vital Signs Temp 98.0 F 12/10/20 10:17 Pulse 67 12/10/20 10:17 Resp 17 12/10/20 10:17 BP 115/63 12/10/20 10:17 Pulse Ox 93 L 12/10/20 10:17 Intake & Output 12/09/20 12/10/20 12/10/20 18:59 06:59 18:59 Other: Voiding Method Toilet Toilet # Voids 2 - Exam GENERAL EXAM: Alert, very pleasant, 55-year-old white male, on 10 L of oxygen pulse ox between 89-93% comfortable in no apparent distress. HEAD: Normocephalic/atraumatic. EYES: Normal reaction of pupils, equal size. Conjunctiva pink, sclera white. NOSE: Clear with pink turbinates. THROAT: No erythema or exudates. NECK: No masses, no JVD, no thyroid enlargement, no adenopathy. CHEST: No chest wall deformity. Symmetrical expansion. LUNGS: Equal air entry with diffuse crackles CVS: Regular rate and rhythm, normal S1 and S2, no gallops, no murmurs, no rubs ABDOMEN: Soft, nontender. No hepatosplenomegaly, normal bowel sounds, no guarding or rigidity. EXTREMITIES: No clubbing, no edema, no cyanosis, 2+ pulses and upper and lower extremities. MUSCULOSKELETAL: Muscle strength and tone normal. SPINE: No scoliosis or deformity SKIN: No rashes CENTRAL NERVOUS SYSTEM: Alert and oriented -3. No focal deficits, tone is normal in all 4 extremities. PSYCHIATRIC: Alert and oriented -3. Appropriate affect. Intact judgment and insight. - Labs CBC & Chem 7: 12/08/20 17:42 12/10/20 08:41 Labs: Abnormal Lab Results - Last 24 Hours (Table) 12/08/20 12/10/20 12/10/20 Range/Units 17:42 08:41 08:41 D-Dimer 0.62 H (<0.60) mg/L FEU BUN 28 H (9-20) mg/dL Glucose 108 H (74-99) mg/dL Ferritin 1705.5 H (22.0-322.0) ng/mL Lactate Dehydrogenase 872 H (313-618) U/L C-Reactive Protein 3.3 H (<1.0) mg/dL Microbiology - Last 24 Hours (Table) 12/08/20 17:42 Blood Culture - Preliminary Blood No Growth after 24 hours 12/08/20 17:42 Blood Culture - Preliminary Blood No Growth after 24 hours Assessment and Plan Plan: Assessment: #1. Acute hypoxic respiratory failure secondary to acute COVID-19 pneumonia, and patient was started on Remdesivir on oral 12/08/2020. In view of progressive oxygen demand, patient will also be started on Bariticinib on 12/10/2020 #2. History of underlying coronary artery disease and previous stenting #3. Elevated inflammatory markers and d-dimer related to COVID-19 infection #4. Lymphopenia #5. Elevated d-dimer, without CT evidence of pulmonary embolism #6. Acute on chronic kidney disease, improving Plan: Continue current medical treatments Continue Remdesivir, today is day 3 of treatment We will add Bariticinib in view of increased oxygen demand Continue Decadron and Lovenox Encouraged the patient to prone in bed and able Encourage deep breathing and coughing incentive spirometer use We'll continue to follow I performed a history & physical examination of the patient and discussed their management with my nurse practitioner, Naima Maharaj. I reviewed the nurse practitioner's note and agree with the documented findings and plan of care. Lung sounds are positive for diffuse crackles throughout the lung stevens. The findings and the impression was discussed with the patient. I attest to the documentation by the nurse practitioner. Time with Patient: Less than 30
[2020-12-10] MEDS: BARICITINIB 2 MG TABLET PO SCH (16:48)
[2020-12-10] MEDS: CHOLECALCIFEROL 25 MCG (1000 IU) TABLET PO SCH (22:03)
[2020-12-10] MEDS: REMDESIVIR 100 MG in SODIUM CHLORIDE 0.9% 250 ML IVPB SCH (22:03)
[2020-12-10] MEDS: ASCORBIC ACID 500 MG TAB PO SCH (22:03)
[2020-12-10] MEDS: ATORVASTATIN 10 MG TAB PO SCH (22:04)
[2020-12-10] MEDS: ENOXAPARIN 40 MG/0.4 ML SYRINGE SQ SCH (22:04)
[2020-12-10] MEDS: ZINC SULFATE 220 MG CAP PO SCH (22:04)
--- NOTE | 2020-12-11 07:17 | XR ---
EXAMINATION TYPE: XR chest 1V DATE OF EXAM: 12/11/2020 CLINICAL HISTORY: Difficulty breathing progress study. TECHNIQUE: Single AP portable upright view of the chest is obtained. COMPARISON: Chest x-ray from 2 days earlier. FINDINGS: Stable cardiomegaly. Persistent bilateral mid to lower lung opacities greatest in the carito phery and in the left lung. Osseous structures are intact. Overlying EKG leads redemonstrated. IMPRESSION: Cardiomegaly with left greater than right bilateral mid to lower lung opacities consisten t with covid-19 infection. No significant change from most recent x-ray.
--- NOTE | 2020-12-11 07:18 | PN ---
PROGRESS NOTE DATE OF SERVICE: 12/10/2020 REASON FOR FOLLOWUP: COVID-19 pneumonia. INTERVAL HISTORY: Patient is afebrile. He is breathing slightly comfortably. The patient denies having any chest pain. Cough has decreased intensity. No nausea, no vomiting. No abdominal pain. No diarrhea. PHYSICAL EXAMINATION: Blood pressure 102/67, pulse of 94, temperature 98.1. He is 94% on room air. General description is a middle-aged male lying in bed in no distress. Respiratory system: Unlabored breathing, decreased intensity of breath sounds. No wheeze. Heart S1, S2. Regular rate and rhythm. Abdomen soft, no tenderness. LABS: D-dimer 0.62, BUN of 28, creatinine is 1.16. DIAGNOSTIC IMPRESSION/PLAN: Patient with acute COVID-19 pneumonia, minimal clinical improvement. The patient is currently covered with Remdesivir, dexamethasone, zinc and ascorbic acid to continue along with respiratory support and monitor clinical course closely. MMODL / IJN: [id number] /
[2020-12-11] MEDS: ALBUTEROL HFA INHALER INHALATION PRN ×3 (08:09→19:42)
[2020-12-11] MEDS: ACETAMINOPHEN TAB 325 MG TAB PO PRN (08:29)
[2020-12-11] MEDS: CLOPIDOGREL 75 MG TAB PO SCH (08:29)
[2020-12-11] MEDS: METOPROLOL SUCCINATE (ER) 25 MG TAB.ER.24H PO SCH (08:29)
[2020-12-11] MEDS: ISOSORBIDE MONONITRATE ER 30 MG TAB.ER.24H PO SCH (08:29)
[2020-12-11] MEDS: LISINOPRIL-HCTZ 20-12.5 MG 1 EACH TAB PO SCH (08:29)
[2020-12-11] MEDS: PANTOPRAZOLE 40 MG TABLET PO SCH (08:30)
[2020-12-11] MEDS: ASPIRIN 81 MG PO SCH (08:30)
[2020-12-11] MEDS: hydrALAZINE HCL 25 MG TAB PO SCH ×3 (08:30→22:03)
[2020-12-11] MEDS: DEXAMETHASONE SOD PHOSPHATE 10 MG/ML 1 ML VIAL IV SCH (08:30)
[2020-12-11] MEDS: BARICITINIB 2 MG TABLET PO SCH (08:31)
--- NOTE | 2020-12-11 14:10 | P.PN ---
Subjective Progress Note Date: 12/11/20 Principal diagnosis: Acute hypoxic respiratory failure secondary to COVID-19 pneumonia On today's evaluation on 12/10/2020 patient seen in follow-up on medical surgical floor. Is currently on 10 L of oxygen, pulse ox is 93%, today is day 3 of Remdesivir, he continues on Decadron 6 mg daily, he appears to be in no acute distress, he does have cough, nonproductive. No complaint of chest discomfort. No fever overnight. 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 Today's labs have been reviewed d-dimer 0.62, electrolytes are within normal limits, renal profile is improved on today's labs, with BUN of 28 and creatinine of 1.1 6. He's tolerating oral intake, no nausea vomiting or diarrhea, his appetite is fair Reevaluated today on 12/11/2020, patient remains on the regular medical floor, he is down to 10 L high flow cannula, and his O2 saturation is 96%. We plan to titrate this down further as tolerated and maintain O2 saturations above 90%. Patient is comfortable, not in distress, remains on the COVID-19 cocktail in cluding vitamins, Decadron, and baricitinib he is also on REMDESIVIR chest x-ray continues to show bilateral infiltrates left more so than right, not much of a change d-dimer is down to 0.62 electrolytes are normal LDH is down to 872 and C- reactive protein is down to 3.3. Objective - Vital Signs Vital signs: Vital Signs Temp 98.3 F 12/11/20 14:03 Pulse 61 12/11/20 14:03 Resp 17 12/11/20 14:03 BP 107/57 12/11/20 14:03 Pulse Ox 96 12/11/20 14:03 Intake & Output 12/10/20 12/11/20 12/11/20 18:59 06:59 18:59 Other: Voiding Method Toilet # Voids 3 3 # Bowel Movements 0 - Exam Physical Exam: Revealed 55-year-old white male in no distress, on 10 L high flow cannula. Head: Atraumatic, normocephalic. HEENT:[Neck is supple.] [No neck masses.] [No thyromegaly.] [No JVD.] Chest: [Symmetrical chest expansion crackles at the bases. Cardiac Exam: [Normal S1 and S2, no S3 gallop, no murmur.] Abdomen: [Soft, nontender, no megaly, no rebound, no guarding, normal bowel sounds.] Extremities: [No clubbing, no edema, no cyanosis.] Neurological Exam: [No focal neurologic deficit.] Alert and oriented 3. Psychiatric: Normal mood affect and normal mental status examination. Skin: No rashes. - Labs CBC & Chem 7: 12/08/20 17:42 12/10/20 08:41 Labs: Abnormal Lab Results - Last 24 Hours (Table) 12/10/20 Range/Units 08:41 Procalcitonin 0.14 H (0.02-0.09) ng/mL Microbiology - Last 24 Hours (Table) 12/08/20 17:42 Blood Culture - Preliminary Blood No Growth after 48 hours 12/08/20 17:42 Blood Culture - Preliminary Blood No Growth after 48 hours Assessment and Plan Assessment: Impression: Acute hypoxic respiratory failure secondary to acute COVID-19 pneumonia. History of underlying coronary artery disease and previous stents placement. Elevated inflammatory markers secondary to COVID-19 infection. Improving with the treatment. Lymphopenia secondary to acute COVID-19 infection. Improving. Elevated d-dimer secondary to COVID-19 infection. Improving. Chronic kidney disease with creatinine of 1.47 on admission, it is 1.16 today. Improving Recommendation: Overall the patient is showing improvement, but not quite ready for discharge, requiring relatively high flow option now on 9 L. But we'll continue to titrate. Continue present supportive care measures. Continue Lovenox. Continue Decadron. Continue COVID-19 cocktail. Continue remdesivir, and continue BARICITINIB Continue oxygen and titrate accordingly. Continue respiratory isolation./Droplet isolation. We will continue to follow. Time with Patient: Less than 30
--- NOTE | 2020-12-11 17:15 | PN ---
PROGRESS NOTE DATE OF SERVICE: 12/11/2020 REASON FOR FOLLOWUP: COVID-19 pneumonia. INTERVAL HISTORY: Patient is afebrile. The patient is feeling better. Breathing comfortably. Denies having any chest pain or any worsening cough. No nausea, no vomiting. No abdominal pain. No diarrhea. PHYSICAL EXAMINATION: Blood pressure 107/57, pulse of 71, temperature 98.3. He is 93% on 9 L nasal cannula. General description is a middle-aged male up in the bed in no distress. Respiratory system: Unlabored breathing. Coarse breath sounds at the base. No wheeze. Heart S1, S2. Regular rate and rhythm. Abdomen: Soft, no tenderness. LABS: D. dimer down to 0.62, creatinine 1.16. Procalcitonin 0.14. DIAGNOSTIC IMPRESSION AND PLAN: Patient with acute COVID-19 pneumonia, currently on Remdesivir, dexamethasone, Lovenox, zinc and ascorbic acid along with respiratory support and monitor clinical course closely. MMODL / IJN: [id number] /
--- NOTE | 2020-12-11 19:13 | P.PN ---
Subjective This is a pleasant 55 years old male with past medical history of hypertension, hyperlipidemia. He follows up with the [place] [facility] and presents with respiratory distress Patient states he has dyspnea and dry cough with no chest pain for the last 7 d ays. He hasn't been vaccinated against coronavirus. He denies any diarrhea or GI symptoms. No dysuria or urgency. He does not use oxygen at home. Smoking, alcohol or illicit drugs On admission he had a fever of 100.1, he is tachypneic at 22, hypoxic needing 6 L of oxygen to keep oxygen saturation at 94%. Blood pressure stable. No tachycardia. CBC showed leukopenia lymphopenia at 0.7. INR is 1.0. D-dimer is slightly elevated at 0.85. Creatinine is mildly elevated at 1.4 which is at baseline of 1.4-1.8 and sometimes up to 2.0. Rest of the BMP, liver enzymes are unremarkable. Dehydrogenase is increased 1005, C-reactive protein is high at 5.8. CTA of the chest showing no PE. Ectasia of the ascending thoracic aorta at 4.2 cm. Cardiomegaly with moderate diffuse groundglass opacity characteristic of the Covid 19 pneumonia EKG showing normal sinus rhythm at [address]-T changes and QTC of 452. He is on aspirin and Plavix at home, he was started on dexamethasone 6 mg twice a day, Lovenox 40 mg, REM x1, vitamin C, vitamin D and zinc. Infectious disease and pulmonary team were consulted 12/10/2020 Patient with bilateral Covid pneumonia and hypoxic respiratory failure. His oxygen requirements went up from yesterday at 6 to today at 10 L/m. Other Vitas looks stable. D-dimer is actually slightly less 0.8 down to 0.6. LDH is also less at 872 and C-reactive protein down to 3.3. He remains on dexamethasone, multiple vitamin and remdesivir to 12/12 We will repeat chest x-ray tomorrow morning 12/11/2020 Patient is slightly better today with oxygen saturation down to 8 L/m compared to 10 yesterday. He is hemodynamically stable He is to continue with same treatment of dexamethasone, multiple vitamin and remdesivir till 12/12 and baricitinib Objective - Vital Signs Vital signs: Vital Signs Temp 97.8 F 12/11/20 10:12 Pulse 67 12/11/20 10:12 Resp 16 12/11/20 10:12 BP 120/73 12/11/20 10:12 Pulse Ox 96 12/11/20 10:12 Intake & Output 12/10/20 12/11/20 12/11/20 18:59 06:59 18:59 Other: Voiding Method Toilet # Voids 3 3 # Bowel Movements 0 - Exam GENERAL: The patient is alert and oriented x3, not in any acute distress. Well developed, well nourished. HEENT: Pupils are round and equally reacting to light. EOMI. No scleral icterus. No conjunctival pallor. Normocephalic, atraumatic. No pharyngeal erythema. No thyromegaly. CARDIOVASCULAR: S1 and S2 present. No murmurs, rubs, or gallops. -PULMONARY: Chest is clear to auscultation, no wheezing or crackles. Bilateral crepitation ABDOMEN: Soft, nontender, nondistended, normoactive bowel sounds. No palpable organomegaly. MUSCULOSKELETAL: No joint swelling or deformity. EXTREMITIES: No cyanosis, clubbing, or pedal edema. NEUROLOGICAL: Gross neurological examination did not reveal any focal deficits. SKIN: No rashes. no petechiae. - Labs CBC & Chem 7: 12/08/20 17:42 12/10/20 08:41 Labs: Abnormal Lab Results - Last 24 Hours (Table) 12/10/20 Range/Units 08:41 Procalcitonin 0.14 H (0.02-0.09) ng/mL Microbiology - Last 24 Hours (Table) 12/08/20 17:42 Blood Culture - Preliminary Blood No Growth after 48 hours 12/08/20 17:42 Blood Culture - Preliminary Blood No Growth after 48 hours Assessment and Plan Assessment: Acute bilateral Covid pneumonia Hypoxic respiratory failure Increased inflammatory markers Chronic kidney disease stage III Hypertension Hyperlipidemia This is a pleasant 55 years old male who presents with cough and pneumonia and hypoxia Continue with her vitamins cocktail Continue with dexamethasone and Lovenox ID and pulmonary team consult Labs and medication were reviewed.. Continue same treatment. Continue with symptomatic treatment. Resume home medication. Monitor lytes and vitals. DVT and GI prophylaxis. Further recommendationsas per clinical course of the patient DVT prophylaxis: Subcutaneous Lovenox GI Prophylaxis: Pepcid Prognosis is guarded Plan: This is a pleasant 55 years old male who presents with cough and pneumonia. Continue With dexamethasone Continue with vitamin C, vitamin D and zinc c/w remdesivir and baricitinib Pulmonary and infectious disease team consult Labs and medication were reviewed.. Continue same treatment. Continue with symptomatic treatment. Resume home medication. Monitor lytes and vitals. DVT and GI prophylaxis. Further recommendationsas per clinical course of the pat ient DVT prophylaxis: Subcutaneous Lovenox GI Prophylaxis: Pepcid Prognosis is guarded
[2020-12-11] MEDS: REMDESIVIR 100 MG in SODIUM CHLORIDE 0.9% 250 ML IVPB SCH (22:02)
[2020-12-11] MEDS: ATORVASTATIN 10 MG TAB PO SCH (22:02)
[2020-12-11] MEDS: ZINC SULFATE 220 MG CAP PO SCH (22:02)
[2020-12-11] MEDS: CHOLECALCIFEROL 25 MCG (1000 IU) TABLET PO SCH (22:02)
[2020-12-11] MEDS: ENOXAPARIN 40 MG/0.4 ML SYRINGE SQ SCH (22:03)
[2020-12-11] MEDS: ASCORBIC ACID 500 MG TAB PO SCH (22:03)
[2020-12-12] MEDS: ALBUTEROL HFA INHALER INHALATION PRN ×3 (07:33→19:50)
[2020-12-12] MEDS: PANTOPRAZOLE 40 MG TABLET PO SCH (08:09)
[2020-12-12] MEDS: BARICITINIB 2 MG TABLET PO SCH (08:09)
[2020-12-12] MEDS: METOPROLOL SUCCINATE (ER) 25 MG TAB.ER.24H PO SCH (08:09)
[2020-12-12] MEDS: ISOSORBIDE MONONITRATE ER 30 MG TAB.ER.24H PO SCH (08:09)
[2020-12-12] MEDS: LISINOPRIL-HCTZ 20-12.5 MG 1 EACH TAB PO SCH (08:09)
[2020-12-12] MEDS: ASPIRIN 81 MG PO SCH (08:09)
[2020-12-12] MEDS: CLOPIDOGREL 75 MG TAB PO SCH (08:09)
[2020-12-12] MEDS: DEXAMETHASONE SOD PHOSPHATE 10 MG/ML 1 ML VIAL IV SCH (08:09)
[2020-12-12] MEDS: hydrALAZINE HCL 25 MG TAB PO SCH ×3 (08:10→20:57)
[2020-12-12] MEDS: ACETAMINOPHEN TAB 325 MG TAB PO PRN (08:10)
--- NOTE | 2020-12-12 12:17 | P.PN ---
Subjective This is a pleasant 55 years old male with past medical history of hypertension, hyperlipidemia. He follows up with the [place] [facility] and presents with respiratory distress Patient states he has dyspnea and dry cough with no chest pain for the last 7 d ays. He hasn't been vaccinated against coronavirus. He denies any diarrhea or GI symptoms. No dysuria or urgency. He does not use oxygen at home. Smoking, alcohol or illicit drugs On admission he had a fever of 100.1, he is tachypneic at 22, hypoxic needing 6 L of oxygen to keep oxygen saturation at 94%. Blood pressure stable. No tachycardia. CBC showed leukopenia lymphopenia at 0.7. INR is 1.0. D-dimer is slightly elevated at 0.85. Creatinine is mildly elevated at 1.4 which is at baseline of 1.4-1.8 and sometimes up to 2.0. Rest of the BMP, liver enzymes are unremarkable. Dehydrogenase is increased 1005, C-reactive protein is high at 5.8. CTA of the chest showing no PE. Ectasia of the ascending thoracic aorta at 4.2 cm. Cardiomegaly with moderate diffuse groundglass opacity characteristic of the Covid 19 pneumonia EKG showing normal sinus rhythm at [address]-T changes and QTC of 452. He is on aspirin and Plavix at home, he was started on dexamethasone 6 mg twice a day, Lovenox 40 mg, REM x1, vitamin C, vitamin D and zinc. Infectious disease and pulmonary team were consulted 12/10/2020 Patient with bilateral Covid pneumonia and hypoxic respiratory failure. His oxygen requirements went up from yesterday at 6 to today at 10 L/m. Other Vitas looks stable. D-dimer is actually slightly less 0.8 down to 0.6. LDH is also less at 872 and C-reactive protein down to 3.3. He remains on dexamethasone, multiple vitamin and remdesivir to 12/12 We will repeat chest x-ray tomorrow morning 12/11/2020 Patient is slightly better today with oxygen saturation down to 8 L/m compared to 10 yesterday. He is hemodynamically stable He is to continue with same treatment of dexamethasone, multiple vitamin and remdesivir till 12/12 and baricitinib 12/12/2020 He is improving gradually and he feels better today. Oxygen sat requirements went down to 7 L/m with high oxygen saturation more than 95% Hemodynamically stable. No labs today. No chest x-ray. He remains on same treatment as before. Objective - Vital Signs Vital signs: Vital Signs Temp 98.5 F 12/12/20 09:55 Pulse 63 12/12/20 09:55 Resp 18 12/12/20 09:55 BP 135/64 12/12/20 09:55 Pulse Ox 98 12/12/20 09:55 Intake & Output 12/11/20 12/12/20 12/12/20 18:59 06:59 18:59 Intake Total 240 Balance 240 Intake: Oral 240 Other: Voiding Method Toilet # Voids 3 3 - Exam GENERAL: The patient is alert and oriented x3, not in any acute distress. Well developed, well nourished. HEENT: Pupils are round and equally reacting to light. EOMI. No scleral icterus. No conjunctival pallor. Normocephalic, atraumatic. No pharyngeal erythema. No thyromegaly. CARDIOVASCULAR: S1 and S2 present. No murmurs, rubs, or gallops. -PULMONARY: Chest is clear to auscultation, no wheezing or crackles. Bilateral crepitation ABDOMEN: Soft, nontender, nondistended, normoactive bowel sounds. No palpable organomegaly. MUSCULOSKELETAL: No joint swelling or deformity. EXTREMITIES: No cyanosis, clubbing, or pedal edema. NEUROLOGICAL: Gross neurological examination did not reveal any focal deficits. SKIN: No rashes. no petechiae. - Labs CBC & Chem 7: 12/08/20 17:42 12/10/20 08:41 Labs: Microbiology - Last 24 Hours (Table) 12/08/20 17:42 Blood Culture - Preliminary Blood No Growth after 72 hours 12/08/20 17:42 Blood Culture - Preliminary Blood No Growth after 72 hours Assessment and Plan Assessment: Acute bilateral Covid pneumonia Hypoxic respiratory failure Increased inflammatory markers Chronic kidney disease stage III Hypertension Hyperlipidemia This is a pleasant 55 years old male who presents with cough and pneumonia and hypoxia Continue with her vitamins cocktail Continue with dexamethasone and Lovenox ID and pulmonary team consult Labs and medication were reviewed.. Continue same treatment. Continue with sy mptomatic treatment. Resume home medication. Monitor lytes and vitals. DVT and GI prophylaxis. Further recommendationsas per clinical course of the patient DVT prophylaxis: Subcutaneous Lovenox GI Prophylaxis: Pepcid Prognosis is guarded Plan: This is a pleasant 55 years old male who presents with cough and pneumonia. Continue With dexamethasone Continue with vitamin C, vitamin D and zinc c/w remdesivir and baricitinib Pulmonary and infectious disease team consult Labs and medication were reviewed.. Continue same treatment. Continue with symptomatic treatment. Resume home medication. Monitor lytes and vitals. DVT and GI prophylaxis. Further recommendationsas per clinical course of the patient DVT prophylaxis: Subcutaneous Lovenox GI Prophylaxis: Pepcid Prognosis is guarded
--- NOTE | 2020-12-12 15:28 | P.PN ---
Subjective Progress Note Date: 12/12/20 Principal diagnosis: Shortness of breath, COVID-19 pneumonia On today's evaluation on 12/10/2020 patient seen in follow-up on medical surgical floor. Is currently on 10 L of oxygen, pulse ox is 93%, today is day 3 of Remdesivir, he continues on Decadron 6 mg daily, he appears to be in no acute distress, he does have cough, nonproductive. No complaint of chest discomfort. No fever overnight. 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 Today's labs have been reviewed d-dimer 0.62, electrolytes are within normal limits, renal profile is improved on today's labs, with BUN of 28 and creatinine of 1.16. He's tolerating oral intake, no nausea vomiting or diarrhea, his appetite is fair On 12/12/2020 patient seen in follow-up on medical surgical floor. He is awake and alert, he is resting comfortably in bed, FiO2 is currently down to 7 L, his pulse ox is 90%, overall he is doing well, and we were able to wean down his ox ygen. He continues on Remdesivir, today is his last treatment. He continues on Decadron 6 mg daily, and prophylactic dose of Lovenox, he is on multivitamins, his last chest x-ray yesterday showed cardiomegaly with left greater than right bilateral mid to lower lung opacities consistent with COVID-19 pneumonia. We also added Bariticinib on 12/10/2020. Today's labs have been reviewed, his d-dimer is 0.62, electrolytes and renal profile are unremarkable, his renal profile is actually improving and creatinine is down to 1.16 on today's labs. LDH is improved and is down to 872, CRP is 3.3, which is also improved, pro- calcitonin level is down to 0.14 on today's labs. Ultracet been negative, vital signs have been stable, his been afebrile. Objective - Vital Signs Vital signs: Vital Signs Temp 98.4 F 12/12/20 14:13 Pulse 68 12/12/20 14:13 Resp 17 12/12/20 14:13 BP 99/59 12/12/20 14:13 Pulse Ox 90 L 12/12/20 14:13 Intake & Output 12/11/20 12/12/20 12/12/20 18:59 06:59 18:59 Intake Total 240 Balance 240 Intake: Oral 240 Other: Voiding Method Toilet # Voids 3 3 - Exam GENERAL EXAM: Alert, very pleasant, 55-year-old white male, on 7 L of oxygen pulse ox between 89-93% comfortable in no apparent distress. HEAD: Normocephalic/atraumatic. EYES: Normal reaction of pupils, equal size. Conjunctiva pink, sclera white. NOSE: Clear with pink turbinates. THROAT: No erythema or exudates. NECK: No masses, no JVD, no thyroid enlargement, no adenopathy. CHEST: No chest wall deformity. Symmetrical expansion. LUNGS: Equal air entry with diffuse crackles CVS: Regular rate and rhythm, normal S1 and S2, no gallops, no murmurs, no rubs ABDOMEN: Soft, nontender. No hepatosplenomegaly, normal bowel sounds, no guarding or rigidity. EXTREMITIES: No clubbing, no edema, no cyanosis, 2+ pulses and upper and lower extremities. MUSCULOSKELETAL: Muscle strength and tone normal. SPINE: No scoliosis or deformity SKIN: No rashes CENTRAL NERVOUS SYSTEM: Alert and oriented -3. No focal deficits, tone is normal in all 4 extremities. PSYCHIATRIC: Alert and oriented -3. Appropriate affect. Intact judgment and insight. - Labs CBC & Chem 7: 12/08/20 17:42 12/10/20 08:41 Labs: Microbiology - Last 24 Hours (Table) 12/08/20 17:42 Blood Culture - Preliminary Blood No Growth after 72 hours 12/08/20 17:42 Blood Culture - Preliminary Blood No Growth after 72 hours Assessment and Plan Plan: Assessment: #1. Acute hypoxic respiratory failure secondary to acute COVID-19 pneumonia, and patient was started on Remdesivir on oral 12/08/2020. In view of progressive oxygen demand, patient was started on Bariticinib on 12/10/2020 #2. History of underlying coronary artery disease and previous stenting #3. Elevated inflammatory markers and d-dimer related to COVID-19 infection #4. Lymphopenia #5. Elevated d-dimer, without CT evidence of pulmonary embolism #6. Acute on chronic kidney disease, improving Plan: Continue current medical treatments Continue Remdesivir, today is his last day Continue Bariticinib FiO2 is currently down to 7 L Clinically patient is breathing comfortably, vital signs are stable, no fever or chills, Continue encouraging deep breathing and coughing Follow-up chest x-ray tomorrow Continue same dose Lovenox and Decadron I performed a history & physical examination of the patient and discussed their management with my nurse practitioner, Naima Maharaj. I reviewed the nurse practitioner's note and agree with the documented findings and plan of care. Priscilla ng sounds are positive for diffuse crackles throughout the lung stevens. The findings and the impression was discussed with the patient. I attest to the documentation by the nurse practitioner. Time with Patient: Less than 30
--- NOTE | 2020-12-12 17:43 | PN ---
PROGRESS NOTE DATE OF SERVICE: 12/12/2020 REASON FOR FOLLOWUP: COVID-19 infection. INTERVAL HISTORY: The patient is afebrile. The patient is breathing comfortably today. Down to 7 L nasal cannula. The patient denies having any chest pain or any worsening cough. No vomiting. No abdominal pain or diarrhea. PHYSICAL EXAMINATION: Blood pressure 135/64, pulse of 53, temperature 98.5. He is 98% on 7 L nasal cannula. GENERAL DESCRIPTION: General description is a middle-aged male lying in bed in no distress respiratory. RESPIRATORY SYSTEM: Unlabored breathing. Decreased intensity of breath sounds. No wheeze. HEART: S1, S2. Regular rate and rhythm. ABDOMEN: Soft. No tenderness. LABS: No new labs have been obtained today. DIAGNOSTIC IMPRESSION AND PLAN: Patient with acute COVID-19 infection that seems to have shown overall clinical improvement. Patient to continue with remdesivir, dexamethasone, Lovenox and respiratory support and monitor his clinical course closely. Continue supportive care. MMODL / IJN: [id number] /
[2020-12-12] MEDS: REMDESIVIR 100 MG in SODIUM CHLORIDE 0.9% 250 ML IVPB SCH (19:44)
[2020-12-12] MEDS: CHOLECALCIFEROL 25 MCG (1000 IU) TABLET PO SCH (20:55)
[2020-12-12] MEDS: ATORVASTATIN 10 MG TAB PO SCH (20:55)
[2020-12-12] MEDS: ENOXAPARIN 40 MG/0.4 ML SYRINGE SQ SCH (20:55)
[2020-12-12] MEDS: ASCORBIC ACID 500 MG TAB PO SCH (20:55)
[2020-12-12] MEDS: ZINC SULFATE 220 MG CAP PO SCH (20:57)
[2020-12-13] MEDS: ASPIRIN 81 MG PO SCH (07:37)
[2020-12-13] MEDS: LISINOPRIL-HCTZ 20-12.5 MG 1 EACH TAB PO SCH (07:37)
[2020-12-13] MEDS: CLOPIDOGREL 75 MG TAB PO SCH (07:38)
[2020-12-13] MEDS: PANTOPRAZOLE 40 MG TABLET PO SCH (07:38)
[2020-12-13] MEDS: hydrALAZINE HCL 25 MG TAB PO SCH ×3 (07:38→21:44)
[2020-12-13] MEDS: DEXAMETHASONE SOD PHOSPHATE 10 MG/ML 1 ML VIAL IV SCH (07:38)
[2020-12-13] MEDS: METOPROLOL SUCCINATE (ER) 25 MG TAB.ER.24H PO SCH (07:38)
[2020-12-13] MEDS: ISOSORBIDE MONONITRATE ER 30 MG TAB.ER.24H PO SCH (07:38)
[2020-12-13] MEDS: ALBUTEROL HFA INHALER INHALATION PRN ×2 (08:38→12:11)
--- NOTE | 2020-12-13 09:06 | XR ---
EXAMINATION TYPE: XR chest 1V portable DATE OF EXAM: 12/13/2020 Comparison: 12/11/2020 Clinical History: 55-year-old male covid Findings: Heart and lungs are normal in size. Patchy and confluent peripheral mid and lower lung opacities, lef t greater than right are redemonstrated. There may be minimal improving aeration at the left lower marley ng. Impression: Mid and lower lung COVID infiltrates redemonstrated. There may be minimal improvement in aeration at the left base.
--- NOTE | 2020-12-13 12:01 | P.PN ---
Subjective This is a pleasant 55 years old male with past medical history of hypertension, hyperlipidemia. He follows up with the [facility] and presents with respiratory distress Patient states he has dyspnea and dry cough with no chest pain for the last 7 d ays. He hasn't been vaccinated against coronavirus. He denies any diarrhea or GI symptoms. No dysuria or urgency. He does not use oxygen at home. Smoking, alcohol or illicit drugs On admission he had a fever of 100.1, he is tachypneic at 22, hypoxic needing 6 L of oxygen to keep oxygen saturation at 94%. Blood pressure stable. No tachycardia. CBC showed leukopenia lymphopenia at 0.7. INR is 1.0. D-dimer is slightly elevated at 0.85. Creatinine is mildly elevated at 1.4 which is at baseline of 1.4-1.8 and sometimes up to 2.0. Rest of the BMP, liver enzymes are unremarkable. Dehydrogenase is increased 1005, C-reactive protein is high at 5.8. CTA of the chest showing no PE. Ectasia of the ascending thoracic aorta at 4.2 cm. Cardiomegaly with moderate diffuse groundglass opacity characteristic of the Covid 19 pneumonia EKG showing normal sinus rhythm at [address]-T changes and QTC of 452. He is on aspirin and Plavix at home, he was started on dexamethasone 6 mg twice a day, Lovenox 40 mg, REM x1, vitamin C, vitamin D and zinc. Infectious disease and pulmonary team were consulted 12/10/2020 Patient with bilateral Covid pneumonia and hypoxic respiratory failure. His oxygen requirements went up from yesterday at 6 to today at 10 L/m. Other Vitas looks stable. D-dimer is actually slightly less 0.8 down to 0.6. LDH is also less at 872 and C-reactive protein down to 3.3. He remains on dexamethasone, multiple vitamin and remdesivir to 12/12 We will repeat chest x-ray tomorrow morning 12/11/2020 Patient is slightly better today with oxygen saturation down to 8 L/m compared to 10 yesterday. He is hemodynamically stable He is to continue with same treatment of dexamethasone, multiple vitamin and remdesivir till 12/12 and baricitinib 12/12/2020 He is improving gradually and he feels better today. Oxygen sat requirements went down to 7 L/m with high oxygen saturation more than 95% Hemodynamically stable. No labs today. No chest x-ray. He remains on same treatment as before. 12/13/2020 Patient with no worsening respiratory status, distal on 7 L oxygen via nasal cannula. Blood pressure 96/57 Chest x-ray today minimal improvement in bilateral lower infiltrates secondary to Covid Same treatment: dexamethasone, multiple vitamin and remdesivir till 12/12 and baricitinib Objective - Vital Signs Vital signs: Vital Signs Temp 98.4 F 12/13/20 09:35 Pulse 69 12/13/20 09:35 Resp 17 12/13/20 09:35 BP 96/57 12/13/20 09:35 Pulse Ox 90 L 12/13/20 09:35 Intake & Output 12/12/20 12/13/20 12/13/20 18:59 06:59 18:59 Intake Total 240 250 Balance 240 250 Intake: Intake, IV Titration 250 Amount Remdesivir 100 mg In 250 Sodium Chloride 0.9% 250 ml @ 250 mls/hr IVPB DAILY@1999 [facility] Rx#: [id number] Oral 240 Other: Voiding Method Toilet # Voids 5 - Exam GENERAL: The patient is alert and oriented x3, not in any acute distress. Well developed, well nourished. HEENT: Pupils are round and equally reacting to light. EOMI. No scleral icterus. No conjunctival pallor. Normocephalic, atraumatic. No pharyngeal erythema. No thyromegaly. CARDIOVASCULAR: S1 and S2 present. No murmurs, rubs, or gallops. -PULMONARY: Chest is clear to auscultation, no wheezing or crackles. Bilateral crepitation ABDOMEN: Soft, nontender, nondistended, normoactive bowel sounds. No palpable organomegaly. MUSCULOSKELETAL: No joint swelling or deformity. EXTREMITIES: No cyanosis, clubbing, or pedal edema. NEUROLOGICAL: Gross neurological examination did not reveal any focal deficits. SKIN: No rashes. no petechiae. - Labs CBC & Chem 7: 12/08/20 17:42 12/10/20 08:41 Labs: Microbiology - Last 24 Hours (Table) 12/08/20 17:42 Blood Culture - Preliminary Blood No Growth after 96 hours 12/08/20 17:42 Blood Culture - Preliminary Blood No Growth after 96 hours Assessment and Plan Assessment: Acute bilateral Covid pneumonia Hypoxic respiratory failure Increased inflammatory markers Chronic kidney disease stage III Hypertension Hyperlipidemia This is a pleasant 55 years old male who presents with cough and pneumonia and hypoxia Continue with her vitamins cocktail Continue with dexamethasone and Lovenox ID and pulmonary team consult Labs and medication were reviewed.. Continue same treatment. Continue with symptomatic treatment. Resume home medication. Monitor lytes and vitals. DVT and GI prophylaxis. Further recommendationsas per clinical course of the patient DVT prophylaxis: Subcutaneous Lovenox GI Prophylaxis: Pepcid Prognosis is guarded Plan: This is a pleasant 55 years old male who presents with cough and pneumonia. Continue With dexamethasone Continue with vitamin C, vitamin D and zinc c/w remdesivir and baricitinib Pulmonary and infectious disease team consult Labs and medication were reviewed.. Continue same treatment. Continue with symptomatic treatment. Resume home medication. Monitor lytes and vitals. DVT and GI prophylaxis. Further recommendationsas per clinical course of the patient DVT prophylaxis: Subcutaneous Lovenox GI Prophylaxis: Pepcid Prognosis is guarded
[2020-12-13] MEDS: BARICITINIB 2 MG TABLET PO SCH (12:25)
--- NOTE | 2020-12-13 13:40 | P.PN ---
Subjective Progress Note Date: 12/13/20 Principal diagnosis: Acute hypoxic respiratory failure secondary to COVID-19 pneumonia On today's evaluation on 12/10/2020 patient seen in follow-up on medical surgical floor. Is currently on 10 L of oxygen, pulse ox is 93%, today is day 3 of Remdesivir, he continues on Decadron 6 mg daily, he appears to be in no acute distress, he does have cough, nonproductive. No complaint of chest discomfort. No fever overnight. 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 Today's labs have been reviewed d-dimer 0.62, electrolytes are within normal limits, renal profile is improved on today's labs, with BUN of 28 and creatinine of 1.1 6. He's tolerating oral intake, no nausea vomiting or diarrhea, his appetite is fair Reevaluated today on 12/11/2020, patient remains on the regular medical floor, he is down to 10 L high flow cannula, and his O2 saturation is 96%. We plan to titrate this down further as tolerated and maintain O2 saturations above 90%. Patient is comfortable, not in distress, remains on the COVID-19 cocktail in cluding vitamins, Decadron, and baricitinib he is also on REMDESIVIR chest x-ray continues to show bilateral infiltrates left more so than right, not much of a change d-dimer is down to 0.62 electrolytes are normal LDH is down to 872 and C- reactive protein is down to 3.3. On 12/12/2020 patient seen in follow-up on medical surgical floor. He is awake and alert, he is resting comfortably in bed, FiO2 is currently down to 7 L, his pulse ox is 90%, overall he is doing well, and we were able to wean down his oxygen. He continues on Remdesivir, today is his last treatment. He continues on Decadron 6 mg daily, and prophylactic dose of Lovenox, he is on multivitamins, his last chest x-ray yesterday showed cardiomegaly with left greater than right bilateral mid to lower lung opacities consistent with COVID- 19 pneumonia. We also added Bariticinib on 12/10/2020. Today's labs have been reviewed, his d-dimer is 0.62, electrolytes and renal profile are unremarkable, his renal profile is actually improving and creatinine is down to 1.16 on today's labs. LDH is improved and is down to 872, CRP is 3.3, which is also improved, pro-calcitonin level is down to 0.14 on today's labs. Ultracet been negative, vital signs have been stable, his been afebrile. Reevaluated today on 12/13/2020, patient remains on 7 L high flow nasal cannula, surprisingly the patient is doing extremely well clinically. Hardly any cough, no wheezing, no shortness of breath while on oxygen. O2 saturation is 91% on 7 L nasal cannula. Patient remains on Decadron 6 mg daily Lovenox, patient remains on baricitinib Objective - Vital Signs Vital signs: Vital Signs Temp 98.4 F 12/13/20 09:35 Pulse 69 12/13/20 09:35 Resp 17 12/13/20 09:35 BP 96/57 12/13/20 09:35 Pulse Ox 90 L 12/13/20 09:35 Intake & Output 12/12/20 12/13/20 12/13/20 18:59 06:59 18:59 Intake Total 240 250 Balance 240 250 Intake: Intake, IV Titration 250 Amount Remdesivir 100 mg In 250 Sodium Chloride 0.9% 250 ml @ 250 mls/hr IVPB DAILY@2000 [facility] Rx#: [id number] Oral 240 Other: Voiding Method Toilet # Voids 5 - Exam Physical Exam: Revealed 55-year-old white male in no distress, on 7 L nasal cannula Head: Atraumatic, normocephalic. HEENT:[Neck is supple.] [No neck masses.] [No thyromegaly.] [No JVD.] Chest: [Symmetrical chest expansion crackles at the bases. Cardiac Exam: [Normal S1 and S2, no S3 gallop, no murmur.] Abdomen: [Soft, nontender, no megaly, no rebound, no guarding, normal bowel sounds.] Extremities: [No clubbing, no edema, no cyanosis.] Neurological Exam: [No focal neurologic deficit.] Alert and oriented 3. Psychiatric: Normal mood affect and normal mental status examination. Skin: No rashes. - Labs CBC & Chem 7: 12/08/20 17:42 12/10/20 08:41 Labs: Microbiology - Last 24 Hours (Table) 12/08/20 17:42 Blood Culture - Preliminary Blood No Growth after 96 hours 12/08/20 17:42 Blood Culture - Preliminary Blood No Growth after 96 hours Assessment and Plan Assessment: Impression: Acute hypoxic respiratory failure secondary to acute COVID-19 pneumonia. History of underlying coronary artery disease and previous stents placement. Elevated inflammatory markers secondary to COVID-19 infection. Improving with the treatment. Lymphopenia secondary to acute COVID-19 infection. Resolved. Elevated d-dimer secondary to COVID-19 infection. Remains on Lovenox. Recommendation: Continues to slowly improve clinically. Continue Lovenox. Continue Decadron. Continue COVID-19 cocktail. Finished full course of remdesivir, remains on BARICITINIB, total course of treatment, no more than 14 days Continue oxygen and titrate accordingly. Continue respiratory isolation./Droplet isolation. We will continue to follow. Time with Patient: Less than 30
--- NOTE | 2020-12-13 18:59 | PN ---
PROGRESS NOTE DATE OF SERVICE: 12/13/2020 REASON FOR FOLLOWUP: COVID-19 pneumonia. INTERVAL HISTORY: Patient is afebrile. The patient is breathing comfortably. Patient denies having any chest pain. Occasional cough. No nausea, vomiting, abdominal pain or diarrhea. PHYSICAL EXAMINATION: Blood pressure is 137/71 with a pulse of 79, temperature 98.5. He is 93% in L nasal cannula. General description is a middle-aged male lying in bed in no distress. Respiratory system: Unlabored breathing, decreased intensity of breath sounds. No wheeze. Heart S1, S2. Regular rate and rhythm. Abdomen soft. No tenderness. LABS: No new labs have been obtained today. DIAGNOSTIC IMPRESSION AND PLAN: Patient with COVID-19 infection and this patient did seem to show slow clinical improvement. Chest x-ray has shown improvement as well. The patient to continue with dexamethasone, Lovenox, zinc, has completed his 5 day course of Remdesivir. Continue supportive care. MMODL / IJN: [id number] /
[2020-12-13] MEDS: ENOXAPARIN 40 MG/0.4 ML SYRINGE SQ SCH (21:43)
[2020-12-13] MEDS: ASCORBIC ACID 500 MG TAB PO SCH (21:43)
[2020-12-13] MEDS: CHOLECALCIFEROL 25 MCG (1000 IU) TABLET PO SCH (21:43)
[2020-12-13] MEDS: ZINC SULFATE 220 MG CAP PO SCH (21:43)
[2020-12-13] MEDS: ATORVASTATIN 10 MG TAB PO SCH (21:43)
[2020-12-14 07:23] LABS: ALT 27 U/L (4-49); AST 26 U/L (17-59); African American GFR (CKD) 89 (>60 ml/min/1.73 sqM); Albumin 3.4 g/dL (3.5-5.0); Albumin/Globulin Ratio 1.2; Alkaline Phosphatase 85 U/L (38-126); Anion Gap 9 mmol/L; Blood Urea Nitrogen 33 mg/dL (9-20); C Reactive Protein 2.6 mg/dL (<1.0); Calcium 8.8 mg/dL (8.4-10.2); Carbon Dioxide 23 mmol/L (22-30); Chloride 105 mmol/L (98-107); Globulin 2.9 g/dL; Glucose 87 mg/dL (74-99); LDH 657 U/L (313-618); Non-African American GFR(CKD) 77 (>60 ml/min/1.73 sqM); Potassium 4.2 mmol/L (3.5-5.1); Sodium 137 mmol/L (137-145); Total Bilirubin 0.6 mg/dL (0.2-1.3); Total Protein 6.3 g/dL (6.3-8.2)
[2020-12-14] MEDS: PANTOPRAZOLE 40 MG TABLET PO SCH (08:52)
[2020-12-14] MEDS: CLOPIDOGREL 75 MG TAB PO SCH (08:52)
[2020-12-14] MEDS: LISINOPRIL-HCTZ 20-12.5 MG 1 EACH TAB PO SCH (08:52)
[2020-12-14] MEDS: hydrALAZINE HCL 25 MG TAB PO SCH ×4 (08:53→21:09)
[2020-12-14] MEDS: ASPIRIN 81 MG PO SCH (08:53)
[2020-12-14] MEDS: DEXAMETHASONE SOD PHOSPHATE 10 MG/ML 1 ML VIAL IV SCH (08:54)
[2020-12-14] MEDS: ISOSORBIDE MONONITRATE ER 30 MG TAB.ER.24H PO SCH (08:55)
[2020-12-14] MEDS: METOPROLOL SUCCINATE (ER) 25 MG TAB.ER.24H PO SCH (09:09)
[2020-12-14] MEDS: BARICITINIB 2 MG TABLET PO SCH (12:44)
[2020-12-14 13:15] VITALS: BMI 33.3
--- NOTE | 2020-12-14 14:39 | P.PN ---
Subjective This is a pleasant 55 years old male with past medical history of hypertension, hyperlipidemia. He follows up with the [facility] and presents with respiratory distress Patient states he has dyspnea and dry cough with no chest pain for the last 7 d ays. He hasn't been vaccinated against coronavirus. He denies any diarrhea or GI symptoms. No dysuria or urgency. He does not use oxygen at home. Smoking, alcohol or illicit drugs On admission he had a fever of 100.1, he is tachypneic at 22, hypoxic needing 6 L of oxygen to keep oxygen saturation at 94%. Blood pressure stable. No tachycardia. CBC showed leukopenia lymphopenia at 0.7. INR is 1.0. D-dimer is slightly elevated at 0.85. Creatinine is mildly elevated at 1.4 which is at baseline of 1.4-1.8 and sometimes up to 2.0. Rest of the BMP, liver enzymes are unremarkable. Dehydrogenase is increased 1005, C-reactive protein is high at 5.8. CTA of the chest showing no PE. Ectasia of the ascending thoracic aorta at 4.2 cm. Cardiomegaly with moderate diffuse groundglass opacity characteristic of the Covid 19 pneumonia EKG showing normal sinus rhythm at [address]-T changes and QTC of 452. He is on aspirin and Plavix at home, he was started on dexamethasone 6 mg twice a day, Lovenox 40 mg, REM x1, vitamin C, vitamin D and zinc. Infectious disease and pulmonary team were consulted 12/10/2020 Patient with bilateral Covid pneumonia and hypoxic respiratory failure. His oxygen requirements went up from yesterday at 6 to today at 10 L/m. Other Vitas looks stable. D-dimer is actually slightly less 0.8 down to 0.6. LDH is also less at 872 and C-reactive protein down to 3.3. He remains on dexamethasone, multiple vitamin and remdesivir to 12/12 We will repeat chest x-ray tomorrow morning 12/11/2020 Patient is slightly better today with oxygen saturation down to 8 L/m compared to 10 yesterday. He is hemodynamically stable He is to continue with same treatment of dexamethasone, multiple vitamin and remdesivir till 12/12 and baricitinib 12/12/2020 He is improving gradually and he feels better today. Oxygen sat requirements went down to 7 L/m with high oxygen saturation more than 95% Hemodynamically stable. No labs today. No chest x-ray. He remains on same treatment as before. 12/13/2020 Patient with no worsening respiratory status, distal on 7 L oxygen via nasal cannula. Blood pressure 96/57 Chest x-ray today minimal improvement in bilateral lower infiltrates secondary to Covid Same treatment: dexamethasone, multiple vitamin and remdesivir till 12/12 and baricitinib 12/14/2020 Patient clinically is CMR with slight improvement. In's on 7 L oxygen via nasal cannula with slightly tachypnea. His blood pressure is better today 111/67. His d-dimer is 0.8, creatinine back to normal at 1.08. His lactate dehydrogenase trending down 657 and C-reactive protein down to 2.6. He finished his remdesivir Continue with dexamethasone, multiple vitamin and baricitinib Objective - Vital Signs Vital signs: Vital Signs Temp 98.2 F 12/14/20 10:00 Pulse 75 12/14/20 10:00 Resp 20 12/14/20 10:00 BP 111/67 12/14/20 10:00 Pulse Ox 90 L 12/14/20 10:00 Intake & Output 12/13/20 12/14/20 12/14/20 18:59 06:59 18:59 Intake Total 900 Output Total 500 Balance -500 900 Weight 90.718 kg Intake: IV 900 NS @ 75 900 Output: Urine 500 Other: Voiding Method Toilet Toilet - Exam GENERAL: The patient is alert and oriented x3, not in any acute distress. Well developed, well nourished. HEENT: Pupils are round and equally reacting to light. EOMI. No scleral icterus. No conjunctival pallor. Normocephalic, atraumatic. No pharyngeal erythema. No thyromegaly. CARDIOVASCULAR: S1 and S2 present. No murmurs, rubs, or gallops. -PULMONARY: Chest is clear to auscultation, no wheezing or crackles. Bilateral crepitation ABDOMEN: Soft, nontender, nondistended, normoactive bowel sounds. No palpable organomegaly. MUSCULOSKELETAL: No joint swelling or deformity. EXTREMITIES: No cyanosis, clubbing, or pedal edema. NEUROLOGICAL: Gross neurological examination did not reveal any focal deficits. SKIN: No rashes. no petechiae. - Labs CBC & Chem 7: 09/09/21 17:42 12/14/20 06:41 Labs: Abnormal Lab Results - Last 24 Hours (Table) 12/14/20 12/14/20 Range/Units 06:41 06:41 D-Dimer 0.85 H (<0.60) mg/L FEU BUN 33 H (9-20) mg/dL Lactate Dehydrogenase 657 H (313-618) U/L C-Reactive Protein 2.6 H (<1.0) mg/dL Albumin 3.4 L (3.5-5.0) g/dL Microbiology - Last 24 Hours (Table) 12/08/20 17:42 Blood Culture - Preliminary Blood No Growth after 120 hours 12/08/20 17:42 Blood Culture - Preliminary Blood No Growth after 120 hours Assessment and Plan Assessment: Acute bilateral Covid pneumonia Hypoxic respiratory failure Increased inflammatory markers Chronic kidney disease stage III Hypertension Hyperlipidemia This is a pleasant 55 years old male who presents with cough and pneumonia and hypoxia Continue with her vitamins cocktail Continue with dexamethasone and Lovenox ID and pulmonary team consult Labs and medication were reviewed.. Continue same treatment. Continue with sym ptomatic treatment. Resume home medication. Monitor lytes and vitals. DVT and GI prophylaxis. Further recommendationsas per clinical course of the patient DVT prophylaxis: Subcutaneous Lovenox GI Prophylaxis: Pepcid Prognosis is guarded Plan: This is a pleasant 55 years old male who presents with cough and pneumonia. Continue With dexamethasone Continue with vitamin C, vitamin D and zinc c/w baricitinib Pulmonary and infectious disease team consult Labs and medication were reviewed.. Continue same treatment. Continue with symptomatic treatment. Resume home medication. Monitor lytes and vitals. DVT and GI prophylaxis. Further recommendationsas per clinical course of the patient DVT prophylaxis: Subcutaneous Lovenox GI Prophylaxis: Pepcid Prognosis is guarded
--- NOTE | 2020-12-14 14:57 | P.PN ---
Subjective Progress Note Date: 12/14/20 Principal diagnosis: Acute hypoxic respiratory failure secondary to COVID-19 pneumonia On today's evaluation on 12/10/2020 patient seen in follow-up on medical surgical floor. Is currently on 10 L of oxygen, pulse ox is 93%, today is day 3 of Remdesivir, he continues on Decadron 6 mg daily, he appears to be in no acute distress, he does have cough, nonproductive. No complaint of chest discomfort. No fever overnight. 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 Today's labs have been reviewed d-dimer 0.62, electrolytes are within normal limits, renal profile is improved on today's labs, with BUN of 28 and creatinine of 1.1 6. He's tolerating oral intake, no nausea vomiting or diarrhea, his appetite is fair Reevaluated today on 12/11/2020, patient remains on the regular medical floor, he is down to 10 L high flow cannula, and his O2 saturation is 96%. We plan to titrate this down further as tolerated and maintain O2 saturations above 90%. Patient is comfortable, not in distress, remains on the COVID-19 cocktail in cluding vitamins, Decadron, and baricitinib he is also on REMDESIVIR chest x-ray continues to show bilateral infiltrates left more so than right, not much of a change d-dimer is down to 0.62 electrolytes are normal LDH is down to 872 and C- reactive protein is down to 3.3. On 12/12/2020 patient seen in follow-up on medical surgical floor. He is awake and alert, he is resting comfortably in bed, FiO2 is currently down to 7 L, his pulse ox is 90%, overall he is doing well, and we were able to wean down his oxygen. He continues on Remdesivir, today is his last treatment. He continues on Decadron 6 mg daily, and prophylactic dose of Lovenox, he is on multivitamins, his last chest x-ray yesterday showed cardiomegaly with left greater than right bilateral mid to lower lung opacities consistent with COVID- 19 pneumonia. We also added Bariticinib on 12/10/2020. Today's labs have been reviewed, his d-dimer is 0.62, electrolytes and renal profile are unremarkable, his renal profile is actually improving and creatinine is down to 1.16 on today's labs. LDH is improved and is down to 872, CRP is 3.3, which is also improved, pro-calcitonin level is down to 0.14 on today's labs. Ultracet been negative, vital signs have been stable, his been afebrile. Reevaluated today on 12/13/2020, patient remains on 7 L high flow nasal cannula, surprisingly the patient is doing extremely well clinically. Hardly any cough, no wheezing, no shortness of breath while on oxygen. O2 saturation is 91% on 7 L nasal cannula. Patient remains on Decadron 6 mg daily Lovenox, patient remains on baricitinib Reevaluated today on 12/14/2020, patient is down to 6 L high flow nasal cannula, continues to do well, patient is asking if he could be discharged home. I explained to the patient that if his oxygen saturation remains good on 5 L or less, I would definitely arrange for him to go home tomorrow, I would have her repeat chest x-ray and labs to be done in a.m. Clinically the patient is doing fairly well considering his initial presentation, clinically he is improving. D-dimer remains low at 0.85 electrolytes are normal LDH is coming down to 657 C- reactive protein is down to 2.6. Pro-calcitonin is 0.14. Objective - Vital Signs Vital signs: Vital Signs Temp 98.2 F 12/14/20 10:00 Pulse 75 12/14/20 10:00 Resp 20 12/14/20 10:00 BP 111/67 12/14/20 10:00 Pulse Ox 90 L 12/14/20 10:00 Intake & Output 12/13/20 12/14/20 12/14/20 18:59 06:59 18:59 Intake Total 900 Output Total 500 Balance -500 900 Weight 90.718 kg Intake: IV 900 NS @ 75 900 Output: Urine 500 Other: Voiding Method Toilet Toilet - Exam Physical Exam: Revealed 55-year-old white male in no distress, on 6 L nasal cannula Head: Atraumatic, normocephalic. HEENT:[Neck is supple.] [No neck masses.] [No thyromegaly.] [No JVD.] Chest: [Symmetrical chest expansion crackles at the bases. Cardiac Exam: [Normal S1 and S2, no S3 gallop, no murmur.] Abdomen: [Soft, nontender, no megaly, no rebound, no guarding, normal bowel sounds.] Extremities: [No clubbing, no edema, no cyanosis.] Neurological Exam: [No focal neurologic deficit.] Alert and oriented 3. Psychiatric: Normal mood affect and normal mental status examination. Skin: No rashes. - Labs CBC & Chem 7: 12/08/20 17:42 12/14/20 06:41 Labs: Abnormal Lab Results - Last 24 Hours (Table) 12/14/20 12/14/20 Range/Units 06:41 06:41 D-Dimer 0.85 H (<0.60) mg/L FEU BUN 33 H (9-20) mg/dL Lactate Dehydrogenase 657 H (313-618) U/L C-Reactive Protein 2.6 H (<1.0) mg/dL Albumin 3.4 L (3.5-5.0) g/dL Microbiology - Last 24 Hours (Table) 12/08/20 17:42 Blood Culture - Preliminary Blood No Growth after 120 hours 12/08/20 17:42 Blood Culture - Preliminary Blood No Growth after 120 hours Assessment and Plan Assessment: Impression: Acute hypoxic respiratory failure secondary to acute COVID-19 pneumonia. Improving but not quite ready to be discharged home. History of underlying coronary artery disease and previous stents placement. Elevated inflammatory markers secondary to COVID-19 infection. Improving with the treatment. Recommendation: Continues to slowly improve clinically. Patient remains however on 6 L nasal cannula. Continue Lovenox. 40 mg subcu daily. Continue Decadron. Continue COVID-19 cocktail. Finished full course of remdesivir, remains on BARICITINIB, total course of baron atment, no more than 14 days Continue oxygen and titrate accordingly. Continue respiratory isolation./Droplet isolation. Repeat labs, chest x-ray, and if the O2 saturation is improving and the patient is down to 5 L nasal cannula, we could potentially be cleared him to go home tomorrow. We will continue to follow. Time with Patient: Less than 30
--- NOTE | 2020-12-14 17:08 | PN ---
PROGRESS NOTE DATE OF SERVICE: 12/14/2020 REASON FOR FOLLOWUP: COVID-19 pneumonia. INTERVAL HISTORY: The patient is afebrile. The patient is breathing comfortably. The patient denies having any chest pain or shortness of breath. Occasional cough. No abdominal pain or diarrhea. PHYSICAL EXAMINATION: Blood pressure 100/63 with a pulse of 72, temperature 97.7. He is 92% on 5 L nasal cannula. GENERAL DESCRIPTION: General description is a middle-aged male lying in bed in no distress. RESPIRATORY SYSTEM: Unlabored breathing. Decreased breath sounds at the bases. No wheeze. HEART: S1, S2. Regular rate and rhythm. ABDOMEN: Soft. No tenderness. LABS: BUN of 33, creatinine 1.08. D-dimer is 0.85. DIAGNOSTIC IMPRESSION AND PLAN: Patient with COVID-19 infection in this patient who has shown overall clinical improvement. He has completed his 5-day course of remdesivir. Currently on dexamethasone, Lovenox, zinc and ascorbic acid. To continue along with respiratory support and monitor his clinical course closely. MMODL / IJN: [id number] /
[2020-12-14] MEDS: ENOXAPARIN 40 MG/0.4 ML SYRINGE SQ SCH (20:53)
[2020-12-14] MEDS: ASCORBIC ACID 500 MG TAB PO SCH (20:54)
[2020-12-14] MEDS: CHOLECALCIFEROL 25 MCG (1000 IU) TABLET PO SCH (20:54)
[2020-12-14] MEDS: ZINC SULFATE 220 MG CAP PO SCH (20:54)
[2020-12-14] MEDS: ATORVASTATIN 10 MG TAB PO SCH (20:54)
[2020-12-14] MEDS: ALBUTEROL HFA INHALER INHALATION PRN (21:38)
[2020-12-15] MEDS: CLOPIDOGREL 75 MG TAB PO SCH (07:42)
[2020-12-15] MEDS: PANTOPRAZOLE 40 MG TABLET PO SCH (07:42)
[2020-12-15] MEDS: DEXAMETHASONE SOD PHOSPHATE 10 MG/ML 1 ML VIAL IV SCH (07:42)
[2020-12-15] MEDS: ASPIRIN 81 MG PO SCH (07:42)
[2020-12-15] MEDS: hydrALAZINE HCL 25 MG TAB PO SCH (07:43)
[2020-12-15] MEDS: METOPROLOL SUCCINATE (ER) 25 MG TAB.ER.24H PO SCH (07:43)
[2020-12-15] MEDS: ISOSORBIDE MONONITRATE ER 30 MG TAB.ER.24H PO SCH (07:43)
[2020-12-15] MEDS: LISINOPRIL-HCTZ 20-12.5 MG 1 EACH TAB PO SCH (07:43)
--- NOTE | 2020-12-15 07:46 | XR ---
EXAMINATION TYPE: XR chest 1V portable DATE OF EXAM: 12/15/2020 Comparison: 12/13/2020 Clinical History: 55-year-old male covid Findings: Heart upper limits of normal in size. Mild interstitial prominence. Patchy airspace opacity periphery of the mid and lower lungs bilaterally without significant change. Impression: Unchanged patchy peripheral COVID pneumonia in the mid and lower lungs.
[2020-12-15] MEDS: ALBUTEROL HFA INHALER INHALATION PRN ×3 (09:05→20:50)
[2020-12-15] MEDS ORDERED: SODIUM CHLORIDE 0.9% 500 ML 500 ML IV ONE (10:33)
[2020-12-15] MEDS: BARICITINIB 2 MG TABLET PO SCH (11:10)
[2020-12-15] MEDS ORDERED: SODIUM CHLORIDE 0.9% 1,000 ML IV ONE (15:41)
--- NOTE | 2020-12-15 15:42 | P.PN ---
Subjective Progress Note Date: 12/15/20 Principal diagnosis: Shortness of breath, COVID-19 pneumonia On today's evaluation on 12/10/2020 patient seen in follow-up on medical surgical floor. Is currently on 10 L of oxygen, pulse ox is 93%, today is day 3 of Remdesivir, he continues on Decadron 6 mg daily, he appears to be in no acute distress, he does have cough, nonproductive. No complaint of chest discomfort. No fever overnight. 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 Today's labs have been reviewed d-dimer 0.62, electrolytes are within normal limits, renal profile is improved on today's labs, with BUN of 28 and creatinine of 1.16. He's tolerating oral intake, no nausea vomiting or diarrhea, his appetite is fair On 12/12/2020 patient seen in follow-up on medical surgical floor. He is awake and alert, he is resting comfortably in bed, FiO2 is currently down to 7 L, his pulse ox is 90%, overall he is doing well, and we were able to wean down his ox ygen. He continues on Remdesivir, today is his last treatment. He continues on Decadron 6 mg daily, and prophylactic dose of Lovenox, he is on multivitamins, his last chest x-ray yesterday showed cardiomegaly with left greater than right bilateral mid to lower lung opacities consistent with COVID-19 pneumonia. We also added Bariticinib on 12/10/2020. Today's labs have been reviewed, his d-dimer is 0.62, electrolytes and renal profile are unremarkable, his renal profile is actually improving and creatinine is down to 1.16 on today's labs. LDH is improved and is down to 872, CRP is 3.3, which is also improved, pro- calcitonin level is down to 0.14 on today's labs. Ultracet been negative, vital signs have been stable, his been afebrile. On 12/15/2020 patient seen in follow-up on the surgical floor, this morning he was on 5 L of oxygen, satting 92%, his had no acute events in the last 24 hours, his breathing and his oxygenation has been improving the last few days, the nursing staff reports that had gotten up to the shower unassisted, he did not wear his oxygen, and he desaturated down to 70% on room air. He returned to his bed, he was very short of breath and hypoxic, he was placed back on oxygen at 67 L, and it took him a long time to recover, he is currently sitting up on its dependent, breathing comfortably, he is currently 95% on 6 L, no fever or chills, vital signs have been stable, his chest x-ray today shows unchanged patchy peripheral Coumadin pneumonia in the mid and lower lungs.He continues on Baricitinib, Decadron 6 mg daily, vitamins, and Lovenox 40 mg daily, his d-dimer is 0.58, LDH is 702, and CRP is 4.0. Objective - Vital Signs Vital signs: Vital Signs Temp 98.2 F 12/15/20 14:00 Pulse 63 12/15/20 14:00 Resp 12 12/15/20 14:00 BP 80/50 12/15/20 14:00 Pulse Ox 95 12/15/20 14:00 Intake & Output 12/14/20 12/15/20 12/15/20 18:59 06:59 18:59 Intake Total 600 Balance 600 Weight 90.718 kg Intake: Oral 600 Other: Voiding Method Toilet # Voids 4 2 - Exam GENERAL EXAM: Alert, very pleasant, 55-year-old white male, on 5 L of oxygen pulse ox between 90-93% comfortable in no apparent distress. HEAD: Normocephalic/atraumatic. EYES: Normal reaction of pupils, equal size. Conjunctiva pink, sclera white. NOSE: Clear with pink turbinates. THROAT: No erythema or exudates. NECK: No masses, no JVD, no thyroid enlargement, no adenopathy. CHEST: No chest wall deformity. Symmetrical expansion. LUNGS: Equal air entry with diffuse crackles CVS: Regular rate and rhythm, normal S1 and S2, no gallops, no murmurs, no rubs ABDOMEN: Soft, nontender. No hepatosplenomegaly, normal bowel sounds, no guarding or rigidity. EXTREMITIES: No clubbing, no edema, no cyanosis, 2+ pulses and upper and lower extremities. MUSCULOSKELETAL: Muscle strength and tone normal. SPINE: No scoliosis or deformity SKIN: No rashes CENTRAL NERVOUS SYSTEM: Alert and oriented -3. No focal deficits, tone is normal in all 4 extremities. PSYCHIATRIC: Alert and oriented -3. Appropriate affect. Intact judgment and insight. - Labs CBC & Chem 7: 12/08/20 17:42 12/14/20 06:41 Labs: Abnormal Lab Results - Last 24 Hours (Table) 12/15/20 Range/Units 05:42 Lactate Dehydrogenase 702 H (313-618) U/L C-Reactive Protein 4.0 H (<1.0) mg/dL Microbiology - Last 24 Hours (Table) 12/08/20 17:42 Blood Culture - Final Blood No Growth after 144 hours 12/08/20 17:42 Blood Culture - Final Blood No Growth after 144 hours Assessment and Plan Plan: Assessment: #1. Acute hypoxic respiratory failure secondary to acute COVID-19 pneumonia, and patient was started on Remdesivir on oral 12/08/2020. In view of progressive oxygen demand, patient was started on Bariticinib on 12/10/2020 #2. History of underlying coronary artery disease and previous stenting #3. Elevated inflammatory markers and d-dimer related to COVID-19 infection #4. Lymphopenia #5. Elevated d-dimer, without CT evidence of pulmonary embolism #6. Acute on chronic kidney disease, improving Plan: Continue Bariticinib FiO2 is currently down to 6 L Clinically patient is breathing comfortably, no fever or chills He had an episode of desaturation this morning, and subsequently his oxygen had been increased back up to 6 L He had gotten up to the shower unassisted, without oxygen he desaturated, and his oxygen had to be turned back up He is currently recovered, he sat 95% on 6 L We'll try to wean the FiO2 back down to 5 L or less Set up home oxygen for tomorrow If continues to be stable may consider discharge home tomorrow on home oxygen I performed a history & physical examination of the patient and discussed their management with my nurse practitioner, Naima Maharaj. I reviewed the nurse practitioner's note and agree with the documented findings and plan of care. Lung sounds are positive for diffuse crackles throughout the lung stevens. The findings and the impression was discussed with the patient. I attest to the documentation by the nurse practitioner. Time with Patient: Less than 30
--- NOTE | 2020-12-15 16:01 | P.PN ---
Subjective This is a pleasant 55 years old male with past medical history of hypertension, hyperlipidemia. He follows up with the [facility] and presents with respiratory distress Patient states he has dyspnea and dry cough with no chest pain for the last 7 d ays. He hasn't been vaccinated against coronavirus. He denies any diarrhea or GI symptoms. No dysuria or urgency. He does not use oxygen at home. Smoking, alcohol or illicit drugs On admission he had a fever of 100.1, he is tachypneic at 22, hypoxic needing 6 L of oxygen to keep oxygen saturation at 94%. Blood pressure stable. No tachycardia. CBC showed leukopenia lymphopenia at 0.7. INR is 1.0. D-dimer is slightly elevated at 0.85. Creatinine is mildly elevated at 1.4 which is at baseline of 1.4-1.8 and sometimes up to 2.0. Rest of the BMP, liver enzymes are unremarkable. Dehydrogenase is increased 1005, C-reactive protein is high at 5.8. CTA of the chest showing no PE. Ectasia of the ascending thoracic aorta at 4.2 cm. Cardiomegaly with moderate diffuse groundglass opacity characteristic of the Covid 19 pneumonia EKG showing normal sinus rhythm at [address]-T changes and QTC of 452. He is on aspirin and Plavix at home, he was started on dexamethasone 6 mg twice a day, Lovenox 40 mg, REM x1, vitamin C, vitamin D and zinc. Infectious disease and pulmonary team were consulted 12/10/2020 Patient with bilateral Covid pneumonia and hypoxic respiratory failure. His oxygen requirements went up from yesterday at 6 to today at 10 L/m. Other Vitas looks stable. D-dimer is actually slightly less 0.8 down to 0.6. LDH is also less at 872 and C-reactive protein down to 3.3. He remains on dexamethasone, multiple vitamin and remdesivir to 12/12 We will repeat chest x-ray tomorrow morning 12/11/2020 Patient is slightly better today with oxygen saturation down to 8 L/m compared to 10 yesterday. He is hemodynamically stable He is to continue with same treatment of dexamethasone, multiple vitamin and remdesivir till 12/12 and baricitinib 12/12/2020 He is improving gradually and he feels better today. Oxygen sat requirements went down to 7 L/m with high oxygen saturation more than 95% Hemodynamically stable. No labs today. No chest x-ray. He remains on same treatment as before. 12/13/2020 Patient with no worsening respiratory status, distal on 7 L oxygen via nasal cannula. Blood pressure 96/57 Chest x-ray today minimal improvement in bilateral lower infiltrates secondary to Covid Same treatment: dexamethasone, multiple vitamin and remdesivir till 12/12 and baricitinib 12/14/2020 Patient clinically is CMR with slight improvement. In's on 7 L oxygen via nasal cannula with slightly tachypnea. His blood pressure is better today 111/67. His d-dimer is 0.8, creatinine back to normal at 1.08. His lactate dehydrogenase trending down 657 and C-reactive protein down to 2.6. He finished his remdesivir Continue with dexamethasone, multiple vitamin and baricitinib 12/15/2020 Patient is breathing comfortably and sitting at bedside, patient asked to be discharged today however he has been told he does not radiate. Although clinically he was improving and his oxygen saturation today is down to 6 L/m however his blood pressure was on the low side for example 84/47. Patient received 1.5 L boluses of normal saline. We held his lisinopril- hydrochlorothiazide and hydralazine. Continue with metoprolol with holding parameters added to the medication. He finished his remdesivir Continue with dexamethasone, multiple vitamin and baricitinib Objective - Vital Signs Vital signs: Vital Signs Temp 98.2 F 12/15/20 14:00 Pulse 63 12/15/20 14:00 Resp 12 12/15/20 14:00 BP 80/50 12/15/20 14:00 Pulse Ox 95 12/15/20 14:00 Intake & Output 12/14/20 12/15/20 12/15/20 18:59 06:59 18:59 Intake Total 600 Balance 600 Weight 90.718 kg Intake: Oral 600 Other: Voiding Method Toilet # Voids 4 2 - Exam GENERAL: The patient is alert and oriented x3, not in any acute distress. Well developed, well nourished. HEENT: Pupils are round and equally reacting to light. EOMI. No scleral icterus. No conjunctival pallor. Normocephalic, atraumatic. No pharyngeal erythema. No thyromegaly. CARDIOVASCULAR: S1 and S2 present. No murmurs, rubs, or gallops. -PULMONARY: Chest is clear to auscultation, no wheezing or crackles. Bilateral crepitation ABDOMEN: Soft, nontender, nondistended, normoactive bowel sounds. No palpable organomegaly. MUSCULOSKELETAL: No joint swelling or deformity. EXTREMITIES: No cyanosis, clubbing, or pedal edema. NEUROLOGICAL: Gross neurological examination did not reveal any focal deficits. SKIN: No rashes. no petechiae. - Labs CBC & Chem 7: 12/08/20 17:42 12/14/20 06:41 Labs: Abnormal Lab Results - Last 24 Hours (Table) 12/15/20 Range/Units 05:42 Lactate Dehydrogenase 702 H (313-618) U/L C-Reactive Protein 4.0 H (<1.0) mg/dL Microbiology - Last 24 Hours (Table) 12/08/20 17:42 Blood Culture - Final Blood No Growth after 144 hours 12/08/20 17:42 Blood Culture - Final Blood No Growth after 144 hours Assessment and Plan Assessment: Acute bilateral Covid pneumonia Hypoxic respiratory failure Increased inflammatory markers Chronic kidney disease stage III Hypertension Hyperlipidemia This is a pleasant 55 years old male who presents with cough and pneumonia and hypoxia Continue with her vitamins cocktail Continue with dexamethasone and Lovenox ID and pulmonary team consult Labs and medication were reviewed.. Continue same treatment. Continue with symptomatic treatment. Resume home medication. Monitor lytes and vitals. DVT and GI prophylaxis. Further recommendationsas per clinical course of the patient DVT prophylaxis: Subcutaneous Lovenox GI Prophylaxis: Pepcid Prognosis is guarded Plan: This is a pleasant 55 years old male who presents with cough and pneumonia. Continue With dexamethasone Continue with vitamin C, vitamin D and zinc c/w baricitinib Monitor blood pressure closely. Hold lisinopril-hydrochlorothiazide and DC hydralazine. Continue with metoprolol with holding parameters Pulmonary and infectious disease team consult Labs and medication were reviewed.. Continue same treatment. Continue with symptomatic treatment. Resume home medication. Monitor lytes and vitals. DVT and GI prophylaxis. Further recommendationsas per clinical course of the patient DVT prophylaxis: Subcutaneous Lovenox GI Prophylaxis: Pepcid Prognosis is guarded
[2020-12-15] MEDS: ENOXAPARIN 40 MG/0.4 ML SYRINGE SQ SCH (20:22)
[2020-12-15] MEDS: ASCORBIC ACID 500 MG TAB PO SCH (20:22)
[2020-12-15] MEDS: ATORVASTATIN 10 MG TAB PO SCH (20:23)
[2020-12-15] MEDS: ZINC SULFATE 220 MG CAP PO SCH (20:23)
[2020-12-15] MEDS: CHOLECALCIFEROL 25 MCG (1000 IU) TABLET PO SCH (20:23)
--- NOTE | 2020-12-16 00:57 | PN ---
PROGRESS NOTE DATE OF SERVICE: 12/15/2020 REASON FOR FOLLOWUP: COVID-19 pneumonia. INTERVAL HISTORY: The patient is afebrile. The patient is breathing more comfortably. The patient denies having any chest pain or shortness of breath. Occasional cough. No abdominal pain or diarrhea. PHYSICAL EXAMINATION: Blood pressure is 120/59, pulse of 59, temperature 98. He is 95% on 5 L nasal cannula. GENERAL DESCRIPTION: General description is an elderly male lying in bed in no distress. RESPIRATORY SYSTEM: Unlabored breathing. Decreased intensity of breath sounds. No wheeze. HEART: S1, S2. Regular rate and rhythm. ABDOMEN: Soft. No tenderness. LABS: D-dimer is 0.58. LDH is 702. CRP is 4.0. DIAGNOSTIC IMPRESSION AND PLAN: Patient with acute COVID-19 pneumonia in this patient who seems to have shown slow clinical improvement. The patient is currently covered with dexamethasone, Lovenox, baricitinib, along with respiratory support. Monitor his clinical course closely. DEVANTEL / IJN: [id number] /
[2020-12-16] MEDS: ASPIRIN 81 MG PO SCH (08:17)
[2020-12-16] MEDS: CLOPIDOGREL 75 MG TAB PO SCH (08:17)
[2020-12-16] MEDS: METOPROLOL SUCCINATE (ER) 25 MG TAB.ER.24H PO SCH (08:17)
[2020-12-16] MEDS: PANTOPRAZOLE 40 MG TABLET PO SCH (08:17)
[2020-12-16] MEDS: ISOSORBIDE MONONITRATE ER 30 MG TAB.ER.24H PO SCH (08:17)
[2020-12-16] MEDS: DEXAMETHASONE SOD PHOSPHATE 10 MG/ML 1 ML VIAL IV SCH (08:17)
[2020-12-16 08:33] LABS: African American GFR (CKD) 78 (>60 ml/min/1.73 sqM); Anion Gap 8 mmol/L; Blood Urea Nitrogen 39 mg/dL (9-20); Calcium 8.8 mg/dL (8.4-10.2); Carbon Dioxide 22 mmol/L (22-30); Chloride 108 mmol/L (98-107); Glucose 94 mg/dL (74-99); Non-African American GFR(CKD) 68 (>60 ml/min/1.73 sqM); Potassium 4.9 mmol/L (3.5-5.1); Sodium 138 mmol/L (137-145)
[2020-12-16 08:35] LABS: Basophils # (A) 0.1 k/uL (0-0.2); Basophils % (A) 1 %; Eosinophils # (A) 0.1 k/uL (0-0.7); Eosinophils % (A) 1 %; HCT 33.8 % (39.0-53.0); HGB 12.4 gm/dL (13.0-17.5); Lymphocytes # (A) 1.2 k/uL (1.0-4.8); Lymphocytes % (A) 12 %; MCH 32.9 pg (25.0-35.0); MCHC 36.7 g/dL (31.0-37.0); MCV 89.6 fL (80.0-100.0); Mean Platelet Volume 9.2; Monocytes # (A) 0.8 k/uL (0-1.0); Monocytes % (A) 8 %; Neutrophils # (A) 7.7 k/uL (1.3-7.7); Neutrophils % (A) 78 %; Platelet Count 382 k/uL (150-450); RBC 3.77 m/uL (4.30-5.90); RDW 14.1 % (11.5-15.5); WBC 9.9 k/uL (3.8-10.6)
--- NOTE | 2020-12-16 12:04 | P.PN ---
Subjective Progress Note Date: 12/16/20 Principal diagnosis: COVID-19 pneumonia On today's evaluation on 12/10/2020 patient seen in follow-up on medical surgical floor. Is currently on 10 L of oxygen, pulse ox is 93%, today is day 3 of Remdesivir, he continues on Decadron 6 mg daily, he appears to be in no acute distress, he does have cough, nonproductive. No complaint of chest discomfort. No fever overnight. 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 Today's labs have been reviewed d-dimer 0.62, electrolytes are within normal limits, renal profile is improved on today's labs, with BUN of 28 and creatinine of 1.16. He's tolerating oral intake, no nausea vomiting or diarrhea, his appetite is fair On 12/12/2020 patient seen in follow-up on medical surgical floor. He is awake and alert, he is resting comfortably in bed, FiO2 is currently down to 7 L, his pulse ox is 90%, overall he is doing well, and we were able to wean down his oxygen. He continues on Remdesivir, today is his last treatment. He continues on Decadron 6 mg daily, and prophylactic dose of Lovenox, he is on multivitamins, his last chest x-ray yesterday showed cardiomegaly with left greater than right bilateral mid to lower lung opacities consistent with COVID- 19 pneumonia. We also added Bariticinib on 12/10/2020. Today's labs have been reviewed, his d-dimer is 0.62, electrolytes and renal profile are unremarkable, his renal profile is actually improving and creatinine is down to 1.16 on today's labs. LDH is improved and is down to 872, CRP is 3.3, which is also improved, pro-calcitonin level is down to 0.14 on today's labs. Ultracet been negative, vital signs have been stable, his been afebrile. On 12/15/2020 patient seen in follow-up on the surgical floor, this morning he was on 5 L of oxygen, satting 92%, his had no acute events in the last 24 hours, his breathing and his oxygenation has been improving the last few days, the nursing staff reports that had gotten up to the shower unassisted, he did not wear his oxygen, and he desaturated down to 70% on room air. He returned to his bed, he was very short of breath and hypoxic, he was placed back on oxygen at 67 L, and it took him a long time to recover, he is currently sitting up on its dependent, breathing comfortably, he is currently 95% on 6 L, no fever or chills, vital signs have been stable, his chest x-ray today shows unchanged patchy peripheral Coumadin pneumonia in the mid and lower lungs.He continues on Baricitinib, Decadron 6 mg daily, vitamins, and Lovenox 40 mg daily, his d-dimer is 0.58, LDH is 702, and CRP is 4.0. The patient is seen today 12/16/2020 in follow-up on the regular medical floor. He is currently sitting up in bed. Awake and alert in no acute distress. Breathing better today compared to yesterday. Maintaining O2 saturations in the low 90s on 5 L/m per nasal cannula. His been afebrile. Hemodynamically stable. White count 9.9. Hemoglobin 12.4. Lymphocytes 1.2. Sodium 138. Potassium 4.9. Creatinine 1.20. He is continued on Baricitinib, Decadron, Lovenox, vitamin supplements. Objective - Vital Signs Vital signs: Vital Signs Temp 97.9 F 12/16/20 10:00 Pulse 72 12/16/20 10:00 Resp 22 12/16/20 10:00 BP 106/67 12/16/20 10:00 Pulse Ox 91 L 12/16/20 10:00 Intake & Output 12/15/20 12/16/20 12/16/20 18:59 06:59 18:59 Other: Voiding Method Toilet # Voids 3 3 - Exam GENERAL EXAM: Alert, 55-year-old gentleman, on 5 L nasal cannula, comfortable in no apparent distress. HEAD: Normocephalic. EYES: Normal reaction of pupils, equal size. NOSE: Clear with pink turbinates. THROAT: No erythema or exudates. NECK: No masses, no JVD. CHEST: No chest wall deformity. LUNGS: Equal air entry with bibasilar crackles. CVS: S1 and S2 normal with no audible murmur, regular rhythm. ABDOMEN: No hepatosplenomegaly, normal bowel sounds, no guarding or rigidity. SPINE: No scoliosis or deformity SKIN: No rashes CENTRAL NERVOUS SYSTEM: No focal deficits, tone is normal in all 4 extremities. EXTREMITIES: There is no peripheral edema. No clubbing, no cyanosis. Peripheral pulses are intact. - Labs CBC & Chem 7: 12/16/20 07:06 12/16/20 07:06 Labs: Abnormal Lab Results - Last 24 Hours (Table) 12/16/20 12/16/20 Range/Units 07:06 07:06 RBC 3.77 L (4.30-5.90) m/uL Hgb 12.4 L (13.0-17.5) gm/dL Hct 33.8 L (39.0-53.0) % Chloride 108 H (98-107) mmol/L BUN 39 H (9-20) mg/dL Assessment and Plan Assessment: 1 Acute hypoxic respiratory failure secondary to acute COVID-19 pneumonia, and patient was started on Remdesivir on oral 12/08/2020. In view of progressive oxygen demand, patient was started on Bariticinib on 12/10/2020 2 History of underlying coronary artery disease and previous stenting 3 Elevated inflammatory markers and d-dimer related to COVID-19 infection 4 Lymphopenia 5 Elevated d-dimer, without CT evidence of pulmonary embolism 6 Acute on chronic kidney disease, improving Plan: The patient was seen and evaluated by Dr. Lara He is cleared for discharge from the pulmonary standpoint Scheduled for home oxygen Complete a course of Decadron Continue vitamin supplements Follow-up in the office in 2 weeks I, the cosigning physician, performed a history & physical examination of the patient. Lungs sounds with crackles in bilateral bases. Maintaining good O2 saturations in the 90s on 5 L/m per nasal cannula. I discussed the assessment and plan of care with my nurse practitioner, Vilma Griffin. I attest to the above note as dictated by her.
[2020-12-16] MEDS: BARICITINIB 2 MG TABLET PO SCH (12:22)
--- NOTE | 2020-12-16 13:45 | PN ---
PROGRESS NOTE DATE OF SERVICE: 12/16/2020 REASON FOR FOLLOWUP: COVID-19 pneumonia. INTERVAL HISTORY: The patient is afebrile. The patient is breathing comfortably. He is currently down to 5 L nasal cannula. The patient denies having any chest pain or worsening cough. No vomiting. No abdominal pain or diarrhea. PHYSICAL EXAMINATION: Blood pressure 106/67 with a pulse of 72, temperature 97.9. He is 91% on 5 L nasal cannula. GENERAL DESCRIPTION: General description is a middle-aged male in the bed in no distress. RESPIRATORY SYSTEM: Unlabored breathing. Decreased intensity of breath sounds. No wheeze. HEART: S1, S2. Regular rate and rhythm. ABDOMEN: Soft. No tenderness. LABORATORY STUDIES: Hemoglobin is 12.2, white count 9.9, BUN of 39, creatinine 1.20. Blood culture has been negative. DIAGNOSTIC IMPRESSION AND PLAN: Patient with acute COVID-19 pneumonia in this patient who has shown overall clinical improvement. Patient to finish therapy with a course of ascorbic acid and close outpatient followup. MMODL / IJN: [id number] /
[2020-12-16] MEDS: ALBUTEROL HFA INHALER INHALATION PRN (16:00)
[2020-12-16] MEDS: ZINC SULFATE 220 MG CAP PO SCH (20:49)
[2020-12-16] MEDS: ENOXAPARIN 40 MG/0.4 ML SYRINGE SQ SCH (20:49)
[2020-12-16] MEDS: CHOLECALCIFEROL 25 MCG (1000 IU) TABLET PO SCH (20:49)
[2020-12-16] MEDS: ASCORBIC ACID 500 MG TAB PO SCH (20:49)
[2020-12-16] MEDS: ATORVASTATIN 10 MG TAB PO SCH (20:49)
[2020-12-16 22:21] VITALS: BP 116/65; PULSE 84; RESP 20; TEMP 98.6
== END 2020-12-16 22:14 | disposition home or self-care (01) | DRG 177 ==
LOC: EC 15:54 → 4SSUR 18:26
PROVIDERS: ADMIT Hospitalist; ATTEND Hospitalist
PROC: XW033E5 Introduction of Remdesivir Anti-infective into Peripheral Vein, Percutaneous Approach, New Technology Group 5 (ICD-10-PCS; principal; 2020-12-08)
PROC: 8E0ZXY6 Isolation (ICD-10-PCS; 2020-12-08)
PROC: 3E0333Z Introduction of Anti-inflammatory into Peripheral Vein, Percutaneous Approach (ICD-10-PCS; 2020-12-08)
PROC: XW0DXM6 Introduction of Baricitinib into Mouth and Pharynx, External Approach, New Technology Group 6 (ICD-10-PCS; 2020-12-08)
PROC: 5A0945A Assistance with Respiratory Ventilation, 24-96 Consecutive Hours, High Flow/Velocity Cannula (ICD-10-PCS; 2020-12-09)
DX: U07.1 COVID-19 (principal); J12.82 Pneumonia due to coronavirus disease 2019; J96.01 Acute respiratory failure with hypoxia; N17.9 Acute kidney failure, unspecified; F17.200 Nicotine dependence, unspecified, uncomplicated; E78.5 Hyperlipidemia, unspecified; D72.810 Lymphocytopenia; D64.9 Anemia, unspecified; I25.10 Atherosclerotic heart disease of native coronary artery without angina pectoris; N18.30 Chronic kidney disease, stage 3 unspecified; I13.10 Hypertensive heart and chronic kidney disease without heart failure, with stage 1 through stage 4 chronic kidney disease, or unspecified chronic kidney disease; Z78.9 Other specified health status; Z79.02 Long term (current) use of antithrombotics/antiplatelets; Z79.82 Long term (current) use of aspirin; Z79.899 Other long term (current) drug therapy; Z95.5 Presence of coronary angioplasty implant and graft
CPT/HCPCS: 36415; 71045; 71275; 80048; 80053; 82728; 83605; 83615; 83735; 83880; 84145; 84484; 85025; 85379; 85610; 85730; 86140; 87040; 93005; 94640; 94760; 96374; 99285

== ENCOUNTER → 2021-02-24 | Outpatient (CLI) | payer OTHER ==
--- NOTE | 2021-02-27 09:44 | MM ---
Reason for exam: clinical finding. Physical Findings: Nurse Summary: 1.5cm nodule in the right breast at the nipple (nurse dw). MG 3D Diag Mammo W/Cad CHUY Bilateral CC and MLO view(s) were taken. There are scattered fibroglandular densities. Symmetric flame shaped bilaterally. These results were verbally communicated with the patient and result sheet given to the patient on 02/24/21. ASSESSMENT: Benign, BI-RAD 2 RECOMMENDATION: Clinical management of both breasts. Manage patient on a clinical basis.
== END | disposition home or self-care (01) ==
LOC: RADMAMWWP 14:51
DX: N64.89 Other specified disorders of breast (principal)
CPT/HCPCS: 77062; 77066

== ENCOUNTER 2021-09-26 19:23 | Emergency (ER) | payer OTHER ==
[2021-09-26 20:16] VITALS: BP 146/86; PULSE 95; RESP 18; TEMP 98.2
--- NOTE | 2021-09-26 20:18 | ED ---
Recheck HPI - General Stated Complaint: [facility] - Post Accident Drug Screen, No Injury Time Seen by Provider: 09/26/21 20:16 Source: RN notes reviewed - History of Present Illness Initial Comments: Follow-up with your child's physician as directed. Bring your child back to the emergency department immediately if any symptoms worsen or new symptoms develop. Return if any other problems arise. - Related Data Home Medications Medication Instructions Recorded Confirmed Citalopram Hydrobromide [CeleXA] 40 mg PO DAILY 03/04/20 12/08/20 buPROPion [Wellbutrin] 75 mg PO DAILY 03/04/20 12/08/20 Aspirin EC [Ecotrin Low Dose] 81 mg PO DAILY 12/08/20 12/08/20 Clopidogrel [Plavix] 75 mg PO DAILY 12/08/20 12/08/20 Isosorbide Mononitrate ER [Imdur] 30 mg PO DAILY 12/08/20 12/08/20 Magnesium Oxide 200 mg PO BID 12/08/20 12/08/20 Metoprolol Succinate [Toprol XL] 25 mg PO DAILY 12/08/20 12/08/20 Multivitamins, Thera [Multivitamin 1 tab PO DAILY 12/08/20 12/08/20 (formulary)] Pantoprazole Sodium [Protonix] 20 mg PO DAILY 12/08/20 12/08/20 hydrALAZINE HCL [Apresoline] 25 mg PO TID 12/08/20 12/08/20 Previous Rx's Medication Instructions Recorded Albuterol Inhaler [Ventolin Hfa 2 puff INHALATION RT-Q6H PRN #1 gm 12/16/20 Inhaler] Ascorbic Acid [Vitamin C] 1,000 mg PO HS #30 tab 12/16/20 Atorvastatin [Lipitor] 10 mg PO HS #30 tab 12/16/20 Cholecalciferol [Vitamin D3 (25 50 mcg PO HS #30 tablet 12/16/20 Mcg = 1000 Iu)] methylPREDNISolone Dose Pack 4 mg PO DIRECTED #21 tab 12/16/20 [Medrol Dose Pack] Allergies Allergy/AdvReac Type Severity Reaction Status Date / Time No Known Allergies Allergy Verified 09/26/21 20:16 Review of Systems ROS Statement: Those systems with pertinent positive or pertinent negative responses have been documented in the HPI. ROS Other: All systems not noted in ROS Statement are negative. Past Medical History Past Medical History: Hyperlipidemia, Hypertension History of Any Multi-Drug Resistant Organisms: None Reported Additional Past Surgical History / Comment(s): cyst removal neck. Past Psychological History: No Psychological Hx Reported Smoking Status: Current every day smoker Past Alcohol Use History: Occasional Past Drug Use History: None Reported General Exam Limitations: no limitations General appearance: alert, in no apparent distress Head exam: Present: atraumatic, normocephalic, normal inspection Eye exam: Present: normal appearance, EOMI Neck exam: Present: normal inspection Respiratory exam: Present: normal lung sounds bilaterally. Absent: respiratory distress Cardiovascular Exam: Present: regular rate, normal rhythm, normal heart sounds. Absent: systolic murmur, diastolic murmur, rubs, gallop, clicks GI/Abdominal exam: Present: soft. Absent: tenderness Extremities exam: Present: normal inspection, full ROM Neurological exam: Present: alert, oriented X3, CN II-XII intact, normal gait Psychiatric exam: Present: normal affect, depressed Skin exam: Present: warm, dry, intact, normal color Medical Decision Making - Medical Decision Making Asymptomatic patient presents after dropping parts at work. Requires a drug screen. Limited evaluation in triage. No focal deficits. No symptoms. Cranial nerves II through XII grossly intact Patient was told to return to the ER for any signs or symptoms worsen. Told to return immediately if any other problems arise. All questions answered. Treatment plan discussed. Patient in agreement Every effort has been made to ensure accuracy of this dictation. However, due to the limitations of electronic medical records and dictation devices, errors in charting still occur. Weathercaster Dr. Madison Disposition Clinical Impression: Encounter for laboratory test Disposition: HOME SELF-CARE Condition: Good Additional Instructions: Follow-up with your regular physician as directed. Return to the ER immediately if any symptoms worsen, new symptoms arise, or any other problems develop. Is patient prescribed a controlled substance at d/c from ED?: No Referrals: Rosalie Kwan MD [Primary Care Provider] - 1-2 days (Or [facility] as needed) Time of Disposition: 20:18
== END 2021-09-26 20:56 | disposition home or self-care (01) ==
LOC: EC 19:23
DX: Z02.83 Encounter for blood-alcohol and blood-drug test (principal); I10 Essential (primary) hypertension; E78.5 Hyperlipidemia, unspecified; F17.200 Nicotine dependence, unspecified, uncomplicated
CPT/HCPCS: 99282

== ENCOUNTER 2022-07-07 11:53 | Emergency (ER) | payer OTHER ==
[2022-07-07] MEDS ORDERED: SODIUM CHLORIDE 0.9% 1,000 ML IV STA (12:28)
[2022-07-07] MEDS ORDERED: diphenhydrAMINE 50 MG/ML 1 ML VIAL IVP STA (12:28)
[2022-07-07] MEDS ORDERED: METOCLOPRAMIDE 5 MG/ML 2 ML VIAL IVP STA (12:28)
[2022-07-07 13:02] LABS: Albumin 4.4 g/dL (3.5-5.0); Calcium 9.1 mg/dL (8.4-10.2); Potassium 4.5 mmol/L (3.5-5.1); Total Protein 7.8 g/dL (6.3-8.2)
[2022-07-07 13:07] LABS: Basophils % (A) 0 %; Eosinophils # (A) 0.2 k/uL (0-0.7); Eosinophils % (A) 3 %; HCT 38.2 % (39.0-53.0); HGB 13.4 gm/dL (13.0-17.5); Lymphocytes # (A) 1.6 k/uL (1.0-4.8); Lymphocytes % (A) 20 %; MCH 30.1 pg (25.0-35.0); MCHC 35.1 g/dL (31.0-37.0); MCV 85.8 fL (80.0-100.0); Mean Platelet Volume 7.5; Monocytes # (A) 0.5 k/uL (0-1.0); Monocytes % (A) 6 %; Neutrophils # (A) 5.6 k/uL (1.3-7.7); Neutrophils % (A) 69 %; Platelet Count 239 k/uL (150-450); RBC 4.46 m/uL (4.30-5.90); RDW 13.7 % (11.5-15.5); WBC 8.1 k/uL (3.8-10.6)
--- NOTE | 2022-07-07 13:30 | ED ---
Abdominal Pain HPI - General Chief Complaint: Abdominal Pain Stated Complaint: vomiting Time Seen by Provider: 07/07/22 12:05 Source: patient Mode of arrival: ambulatory Limitations: no limitations - History of Present Illness Initial Comments: 57-year-old male with past medical history of hypertension, hyperlipidemia who presents to the emergency department with inability to swallow. He reports that on Saturday he was eating pork sausage. He choked on a piece but was able to vomit it back out. Since then the patient has had difficulty swallowing any food or drink. Has not had any solid food since then. He cannot take a big gulp of water but can drink some slow fluids and keep it in. He has had numerous episodes of vomiting. Has left upper quadrant abdominal pain. Denies chest pain or shortness of breath. No history of EGD. He has not been taking any medications [id number] for his symptoms. No sick contacts with similar symptoms. No diarrhea. No changes in his urination. No other alleviating, precipitating or modifying factors - Related Data Home Medications Medication Instructions Recorded Confirmed Citalopram Hydrobromide [CeleXA] 40 mg PO DAILY 03/04/20 07/07/22 buPROPion [Wellbutrin] 75 mg PO DAILY 03/04/20 07/07/22 Aspirin EC [Ecotrin Low Dose] 81 mg PO DAILY 12/08/20 07/07/22 Clopidogrel [Plavix] 75 mg PO DAILY 12/08/20 07/07/22 Isosorbide Mononitrate ER [Imdur] 30 mg PO DAILY 12/08/20 07/07/22 Metoprolol Succinate [Toprol XL] 25 mg PO DAILY 12/08/20 07/07/22 Multivitamins, Thera [Multivitamin 1 tab PO DAILY 12/08/20 07/07/22 (formulary)] hydrALAZINE HCL [Apresoline] 25 mg PO TID 12/08/20 07/07/22 Atorvastatin Calcium [Lipitor] 40 mg PO HS 07/07/22 07/07/22 Magnesium Oxide [Mag-Ox] 400 mg PO HS 07/07/22 07/07/22 Allergies Allergy/AdvReac Type Severity Reaction Status Date / Time No Known Allergies Allergy Verified 07/07/22 13:34 Review of Systems ROS Statement: Those systems with pertinent positive or pertinent negative responses have been documented in the HPI. ROS Other: All systems not noted in ROS Statement are negative. Past Medical History Past Medical History: Hyperlipidemia, Hypertension History of Any Multi-Drug Resistant Organisms: None Reported Past Surgical History: Heart Catheterization With Stent Additional Past Surgical History / Comment(s): cyst removal neck. Past Psychological History: No Psychological Hx Reported Smoking Status: Current every day smoker Past Alcohol Use History: Occasional Past Drug Use History: None Reported General Exam Limitations: no limitations General appearance: alert, in no apparent distress Head exam: Present: atraumatic, normocephalic, normal inspection Eye exam: Present: normal appearance, PERRL, EOMI. Absent: scleral icterus, conjunctival injection, periorbital swelling ENT exam: Present: normal exam, mucous membranes moist Neck exam: Present: normal inspection. Absent: tenderness, meningismus, lymphadenopathy Respiratory exam: Present: normal lung sounds bilaterally. Absent: respiratory distress, wheezes, rales, rhonchi, stridor Cardiovascular Exam: Present: regular rate, normal rhythm, normal heart sounds. Absent: systolic murmur, diastolic murmur, rubs, gallop, clicks GI/Abdominal exam: Present: soft, tenderness (Left upper quadrant), normal bowel sounds. Absent: distended, guarding, rebound, rigid Extremities exam: Present: normal inspection, full ROM, normal capillary refill. Absent: tenderness, pedal edema, joint swelling, calf tenderness Back exam: Present: normal inspection Neurological exam: Present: alert, oriented X3, CN II-XII intact Psychiatric exam: Present: normal affect, normal mood Skin exam: Present: warm, dry, intact, normal color. Absent: rash Course Vital Signs 07/07/22 07/07/22 07/07/22 12:03 14:10 16:30 Temperature 98.4 F 98.0 F Pulse Rate 85 74 78 Respiratory 20 18 18 Rate Blood Pressure 115/73 116/67 116/71 O2 Sat by Pulse 99 94 L 98 Oximetry Medical Decision Making - Medical Decision Making Was pt. sent in by a medical professional or institution (, PA, CHECKERING MACHINE ADJUSTER, urgent care, hospital, or care home...) When possible be specific @ -No Did you speak to anyone other than the patient for history (EMS, parent, family, police, friend...)? What history was obtained from this source @ -No Did you review nursing and triage notes (agree or disagree)? Why? @ -I reviewed and agree with nursing and triage notes Were old charts reviewed (outside hosp., previous admission, EMS record, old EKG, old radiological studies, urgent care reports/EKG's, care home records)? Report findings @ -No old charts were reviewed Differential Diagnosis (chest pain, altered mental status, abdominal pain women, abdominal pain men, vaginal bleeding, weakness, fever, dyspnea, syncope, headache, dizziness, GI bleed, back pain, seizure, CVA, palpatations, mental health, musculoskeletal)? @ -Food bolus, esophageal abrasion, esophageal perforation, esophageal cancer EKG interpreted by me (3pts min.). @ -Yes X-rays interpreted by me (1pt min.). @ -None done CT interpreted by me (1pt min.). @ -Yes U/S interpreted by me (1pt. min.). @ -None done What testing was considered but not performed or refused? (CT, X-rays, U/S, labs)? Why? @ -None What meds were considered but not given or refused? Why? @ -None Did you discuss the management of the patient with other professionals (professionals i.e. , PA, CHECKERING MACHINE ADJUSTER, lab, RT, psych nurse, social media intern, cad librarian, teacher, training officer, pillowcase sewer)? Give summary @ -Dr. Escobar, GI specialist at [facility] Was smoking cessation discussed for >3mins.? @ -No Was critical care preformed (if so, how long)? @ -No Were there social determinants of health that impacted care today? How? (Homelessness, low income, unemployed, alcoholism, drug addiction, transportation, low edu. Level, literacy, decrease access to med. care, prison, rehab)? @ -No Was there de-escalation of care discussed even if they declined (Discuss DNR or withdrawal of care, Hospice)? DNR status @ -No What co-morbidities impacted this encounter? (DM, HTN, Smoking, COPD, CAD, Cance r, CVA, ARF, Chemo, Hep., AIDS, mental health diagnosis, sleep apnea, morbid obesity)? @ -None Was patient admitted / discharged? Hospital course, mention meds given and route, prescriptions, significant lab abnormalities, going to OR and other pertinent info. @ - Upon arrival patient was placed into room 17. A thorough history and physical exam was performed. Laboratory studies are conducted. CT is performed of the chest and abdomen. I did discuss the results with the on-call surgeon Dr. Ariza. He is able to look at the images and states that the patient does have debris and food in the distal esophagus. Patient needs direct vis ualization for which she is unable to complete. We do not have GI available. I discussed this with the patient. He'll require transfer for direct visualization. Called and spoke with Dr. David and Dr. Escobar, ER physician and GI specialist at [facility]. They do accept transfer the patient. He will go by EMS. COBRA forms are signed and the patient is transferred in stable condition Undiagnosed new problem with uncertain prognosis? @ -Yes Drug Therapy requiring intensive monitoring for toxicity (Heparin, Nitro, Insulin, Cardizem)? @ -No Were any procedures done? @ -No Diagnosis/symptom? @ -Acute dysphasia, suspected food bolus Acute, or Chronic, or Acute on Chronic? @ -Acute Uncomplicated (without systemic symptoms) or Complicated (systemic symptoms)? @ -Complicated Side effects of treatment? @ -No Exacerbation, Progression, or Severe Exacerbation? @ -No Poses a threat to life or bodily function? How? (Chest pain, [place], [place], pneumonia, PE, COPD, DKA, ARF, appy, cholecystitis, CVA, Diverticulitis, Homicidal, Suicidal, threat to staff... and all critical care pts) @ -Yes - Lab Data Result diagrams: 07/07/22 12:46 07/07/22 12:46 Lab Results 07/07/22 07/07/22 Range/Units 12:46 12:46 WBC 8.1 (3.8-10.6) k/uL RBC 4.46 (4.30-5.90) m/uL Hgb 13.4 (13.0-17.5) gm/dL Hct 38.2 L (39.0-53.0) % MCV 85.8 (80.0-100.0) fL MCH 30.1 (25.0-35.0) pg MCHC 35.1 (31.0-37.0) g/dL RDW 13.7 (11.5-15.5) % Plt Count 239 (150-450) k/uL MPV 7.5 Neutrophils % 69 % Lymphocytes % 20 % Monocytes % 6 % Eosinophils % 3 % Basophils % 0 % Neutrophils # 5.6 (1.3-7.7) k/uL Lymphocytes # 1.6 (1.0-4.8) k/uL Monocytes # 0.5 (0-1.0) k/uL Eosinophils # 0.2 (0-0.7) k/uL Basophils # 0.0 (0-0.2) k/uL Sodium 140 (137-145) mmol/L Potassium 4.5 (3.5-5.1) mmol/L Chloride 106 (98-107) mmol/L Carbon Dioxide 23 (22-30) mmol/L Anion Gap 11 mmol/L BUN 29 H (9-20) mg/dL Creatinine 1.33 H (0.66-1.25) mg/dL Est GFR (CKD-EPI)AfAm 69 (>60 ml/min/1.73 sqM) Est GFR (CKD-EPI)NonAf 59 (>60 ml/min/1.73 sqM) Glucose 99 (74-99) mg/dL Calcium 9.1 (8.4-10.2) mg/dL Total Bilirubin 1.0 (0.2-1.3) mg/dL AST 29 (17-59) U/L ALT 29 (4-49) U/L Alkaline Phosphatase 108 (38-126) U/L Total Protein 7.8 (6.3-8.2) g/dL Albumin 4.4 (3.5-5.0) g/dL Lipase 140 (23-300) U/L Disposition Clinical Impression: Food impaction of esophagus Disposition: OTHER INSTITUTION NOT DEFINED Condition: Stable Is patient prescribed a controlled substance at d/c from ED?: No Referrals: [facility],Clinic [Primary Care Provider] - 1-2 days Time of Disposition: 16:17 - Out of Hospital Transfer - Req. Specs Out of Hospital Transfer - Requested Specifics: Other Emergency Center ([facility])
--- NOTE | 2022-07-07 13:39 | CT ---
EXAMINATION TYPE: CT chest abdomen w con DATE OF EXAM: 07/07/2022 COMPARISON: None HISTORY: abd pain CT DLP: 1112.9 mGycm. Automated Exposure Control for Dose Reduction was Utilized. CONTRAST: CT scan of the thorax, abdomen and pelvis is performed with IV Contrast, patient injected with 100 mL of Isovue 300. FINDINGS: CT chest: The lungs are clear of consolidative or abnormal interstitial density. There is no pleural effusion, pleural thickening or pneumothorax. There is aneurysmal dilatation of ascending thoracic aorta which measures 4.6 cm. There is no mediast inal, hilar or axillary adenopathy. There is a prominent fluid-filled lower esophagus. Bony thorax is intact. CT ABDOMEN: The gallbladder is normal without gallstones, wall thickening, distention or pericholecystic fluid. T here is no biliary ductal dilatation. There is mild fatty infiltration liver. There is no focal mass or organomegaly involving the liver, pancreas, spleen or adrenal glands. Kidneys excrete contrast promptly and symmetrically and there is no solid renal mass or hydronephrosi s. There is a simple cortical cyst of the right kidney. The caliber the abdominal aorta is normal. Visualized bowel loops are normal in caliber and there is no dilatation or obstruction. There is no f ree intraperitoneal air, fluid or premature changes in the mesentery. The osseous structures and soft tissues abdominal wall and back are intact. IMPRESSION: 1. Mildly prominent fluid-filled lower esophagus. 2. Fusiform aneurysm of ascending thoracic aorta measuring 4.6 cm 3. No acute cardiopulmonary disease. 4. No acute changes within the abdomen.
[2022-07-07 14:12] VITALS: RESP 18
[2022-07-07 16:32] VITALS: BP 116/71; PULSE 78; TEMP 98
== END 2022-07-07 16:40 | disposition other institution (70) ==
LOC: EC 11:53
DX: T18.128A Food in esophagus causing other injury, initial encounter (principal); I10 Essential (primary) hypertension; E78.5 Hyperlipidemia, unspecified; F17.200 Nicotine dependence, unspecified, uncomplicated; Z79.82 Long term (current) use of aspirin; Z79.02 Long term (current) use of antithrombotics/antiplatelets; Z79.899 Other long term (current) drug therapy; X58.XXXA Exposure to other specified factors, initial encounter
CPT/HCPCS: 36415; 80053; 83690; 85025; 71260; 74160; 99285; 96374; 96375; 96361; J1200; J2765; Q9967

== ENCOUNTER 2024-08-10 22:22 | Emergency (ER) | payer OTHER ==
[2024-08-10 22:28] VITALS: RESP 18; TEMP 98.2
[2024-08-10 23:10] VITALS: BP 157/89; PULSE 82
== END 2024-08-10 23:10 | disposition home or self-care (01) ==
LOC: EC 22:22
DX: Z02.83 Encounter for blood-alcohol and blood-drug test (principal)
CPT/HCPCS: 99499